=== PATIENT | male | born 1950 | race Caucasian/White ===

== ENCOUNTER 2016-06-17 09:55 | Emergency (ER) | payer BC ==
[~2016-06-17] VITALS: Ht 175.3 cm; Wt 119.9 kg
[~2016-06-17 09:55] MED LIST: ASPI325T39 PO; ATOR10TA88 PO; BNC4025 PO; CHRO1CAP PO; GLIP10TA3 PO; INDO-24 PO; NAPR1TAB9 PO; OMEG10007 PO; [UNRECOGNIZED DRUG - OTHER]
[2016-06-17 10:05] VITALS: TEMP 36.4; Ht 175.3 cm; Wt 119.9 kg
[2016-06-17] MEDS ORDERED: ONDANSETRON INJ 2 MG/ML 2 ML VIAL IV STA (10:07)
[2016-06-17] MEDS ORDERED: SODIUM CHLORIDE 0.9% 1000ML 1,000 ML IV STA (10:07)
--- NOTE | 2016-06-17 10:38 | DIAGNOSTIC IMAGING REPORT ---
SINGLE VIEW CHEST CLINICAL HISTORY: Generalized abdominal pain. FINDINGS: An AP, portable, upright chest radiograph is compared to study dated 07/18/2014. The examination is degraded by large body habitus and portable technique. The heart is top normal for projection. The mediastinal contour is within normal limits. The lungs and pleural spaces are clear. No pneumothorax is seen. The bony thorax is grossly intact. IMPRESSION: No acute cardiopulmonary abnormality. Electronically signed by: Juan Luis Lincoln M.D. 06/17/2016 10:36 AM Dictated Date/Time: 06/17/2016 10:35 AM
--- NOTE | 2016-06-17 10:57 | DIAGNOSTIC IMAGING REPORT ---
ABDOMEN AND PELVIS CT WITHOUT CONTRAST CT DOSE: 1149.95 mGycm HISTORY: Right-sided flank/abdominal pain. TECHNIQUE: Multiaxial CT images of the abdomen and pelvis were performed without contrast. COMPARISON STUDY: Renal ultrasound 07/16/2014. FINDINGS: The left lung base is clear. There are few adjacent nodules within the right lower lobe with the largest measuring 5 mm. Small fat-containing bilateral Bochdalek's hernias. No pneumoperitoneum. No pneumatosis. No suspicious lytic or blastic osseous lesions. Fatty changes within the liver. The unenhanced gallbladder, spleen, adrenal glands, and pancreas are unremarkable. No retroperitoneal lymphadenopathy. There are 2 hypodense lesions within the left kidney which likely represent cysts. The dominant lesion within the upper pole measures 5.3 cm. No right renal calculi. The bladder is not well-distended but within normal limits. Multiple pelvic phleboliths. There is a 3 mm stone within the left kidney. No left ureteral calculi or hydronephrosis. Suboptimal evaluation for bowel pathology due to the lack of intravenous and oral contrast. However, there is no definite bowel wall thickening or obstruction. Prior appendectomy. Colonic diverticulosis. IMPRESSION: 1. Left-sided nephrolithiasis. No right renal calculi. No hydronephrosis. 2. Colonic diverticulosis. 3. No definite bowel wall thickening or obstruction. 4. Prior appendectomy. 5. A few subcentimeter nodules within the right lower lobe with the largest measuring 5 mm. Please refer to the chart below for recommended follow-up. Please refer to below summary of Fleischner criteria recommendations for follow-up of incidental CT nodules (Samara De Leon, Guidelines for management of small pulmonary nodules detected on CT scans: A statement from the Fleischner Society, Radiology 237: [phone].) Low Risk Patient: Minimal or no smoking or other known risk factors for malignancy <=4 mm: No follow-up needed. >4-6 mm: Initial follow-up CT at 12 months; if unchanged, no further follow-up. >6-8 mm: Initial follow-up CT at 6-12 months then at 18-24 months if no change. >8 mm: Follow-up CT at \R\3, 9, 24 months, or PET and/or biopsy. High Risk Patient: History of smoking or other known risk factors <=4 mm: Follow-up at 12 months; if unchanged, no further follow-up. >4-6 mm: Initial follow-up CT at 6-12 months then at 18-24 months if no change. >6-8 mm: Initial follow-up CT at 3-6 months then at 9-12 and 24 months if no change. >8 mm: Same as low risk patient. Note: Nodule size measured as average of length and width. Ground glass or partly solid nodules may require longer follow-up to exclude indolent adenocarcinoma. Electronically signed by: Marek Evans M.D. 06/17/2016 10:55 AM Dictated Date/Time: 06/17/2016 10:48 AM
[2016-06-17 11:00] LABS: BASO % 0.3 %; BASO ABS # 0.03 K/uL (0-0.2); COMPLETE YES; EOS % 1.2 %; IG% 0.3 %; LYMPH % 29.7 %; LYMPH ABS # 2.58 K/uL (1.2-3.4); MEAN CELL VOLUME 93.9 fL (80-100); MEAN CORPUSCULAR HEMOGLOBIN 31.9 pg (25-34); MEAN PLATELET VOLUME 10.8 fL (7.4-10.4); MONO % 7.8 %; NEUT % 60.7 %; PLATELET COUNT 193 K/uL (130-400); RED BLOOD COUNT 4.79 M/uL (4.7-6.1); WHITE BLOOD COUNT 8.68 K/uL (4.8-10.8)
[2016-06-17 11:03] LABS: URINE APPEARANCE CLEAR (CLEAR); URINE BILIRUBIN NEG (NEG); URINE COLOR YELLOW; URINE EPITHELIAL CELL AUTO 0-5 /lpf (0-5); URINE NITRITE NEG (NEG); URINE PH 5.5 (4.5-7.5); URINE SPECIFIC GRAVITY 1.013 (1.000-1.030); UROBILINOGEN NEG (NEG); ZZUR CULT IF INDIC CLEAN CATCH NO
[2016-06-17] MEDS ORDERED: CINN500T PO (11:05)
[2016-06-17] MEDS ORDERED: BNC/4025 PO (11:05)
[2016-06-17 11:12] LABS: PROTHROMBIN TIME (PATIENT) 10.2 SECONDS (9.0-12.0)
[2016-06-17 11:20] LABS: MANUAL MICROSCOPIC REQUIRED? NO; REVIEW REQ? NO
[2016-06-17 11:21] LABS: BUN/CREATININE RATIO 17.5 (10-20); CALCIUM 9.2 mg/dl (8.5-10.1); CREATININE 1.1 mg/dl (0.60-1.40); POTASSIUM 4.1 mmol/L (3.5-5.1)
--- NOTE | 2016-06-17 11:44 | DIAGNOSTIC IMAGING REPORT ---
ABDOMINAL ULTRASOUND, RIGHT UPPER QUADRANT HISTORY: Right-sided abdominal pain.. COMPARISON: Abdomen and pelvis CT 06/17/2016. FINDINGS: Pancreas: The pancreatic tail is obscured by overlying bowel gas. The remaining portions of the pancreas are within normal limits. Liver: The liver is echogenic consistent with fatty change. Small hypoechoic area within the right hepatic lobe adjacent to the gallbladder fossa favors focal fatty sparing. Gallbladder: No gallbladder wall thickening. No gallstones. CBD: 6 mm. Right kidney: No hydronephrosis. IMPRESSION: 1. No bladder wall thickening. No gallstones. 2. Hepatic steatosis. Electronically signed by: Marek Evans M.D. 06/17/2016 11:42 AM Dictated Date/Time: 06/17/2016 11:40 AM
--- NOTE | 2016-06-17 12:30 | EMERGENCY ROOM VISIT NOTE ---
History Report prepared by Steph: Antonieta Salmeron Under the Supervision of: Dr. Ignacio Moody D.O. First contact with patient: 10:04 Chief Complaint: FLANK PAIN Stated Complaint: R SIDE PAIN-KIDNEY History of Present Illness The patient is a 65 year old male who presents to the Emergency Room with complaints of intermittent right flank pain that began several weeks ago. He currently rates his discomfort as a 5/10 in severity. The patient describes his pain as a dull, pressure. He additionally notes right sided abdominal pain , nausea, and upper back pain. The patient notes a history of previous kidney stones and states that his pain today feels similar. He additionally notes a history of colon cancer and notes that he had a partial colectomy. Source of History: patient Onset: several weeks ago Position: other (right flank) Symptom Intensity: 5/10 Quality: pressure, dull Timing: intermittent Associated Symptoms: + abdominal pain, + back pain, + nausea Review of Systems See HPI for pertinent positives & negatives. A total of 10 systems reviewed and were otherwise negative. Past Medical & Surgical Medical Problems: (1) Colon cancer (2) Diabetes (3) Hypertension (4) Kidney stone Surgical Problems: (1) S/P partial colectomy Family History Cancer Diabetes mellitus Hypertension Social History Smoking Status: Never Smoker Smokeless Tobacco Use: No Alcohol Use: none Marital Status: Housing Status: lives with significant other Current/Historical Medications Scheduled Atorvastatin (Lipitor), 10 MG PO DAILY Cinnamon (Cinnamon), 1,000 MG PO DAILY Fish Oil ([place]-3), 1 CAP PO BID Glipizide (Glucotrol), 10 MG PO BID Olmesartan/Hctz (Benicar Hct 40/25), 1 TAB PO DAILY Allergies Coded Allergies: No Known Allergies (Verified , 07/18/14) Physical Exam Vital Signs Date Time Temp Pulse Resp B/P Pulse Ox O2 Delivery O2 Flow Rate FiO2 06/17/16 11:46 62 16 137/73 98 Room Air 06/17/16 10:05 36.4 64 20 174/78 98 Room Air Physical Exam CONSTITUTIONAL/VITAL SIGNS: Reviewed / noted above. GENERAL: Non-toxic in appearance. INTEGUMENTARY: Warm, dry, and [place]. HEAD: Normocephalic. EYES: without scleral icterus or trauma. ENT/OROPHARYNX: clear and moist. LYMPHADENOPATHY/NECK: Is supple without lymphadenopathy or meningismus. RESPIRATORY: Lungs clear and equal. CARDIOVASCULAR: Regular rate and rhythm. GI/ABDOMEN: Tenderness to right upper quadrant and right epigastric area. Soft. No organomegaly or pulsatile mass. No rebound or guarding. Normal bowel sounds. EXTREMITIES: Warm and well perfused. BACK: No CVA tenderness. NEUROLOGICAL: Intact without focal deficits. PSYCHIATRIC: normal affect. MUSCULOSKELETAL: Normally developed with good muscle tone. Medical Decision & Procedures ER Provider Diagnostic Interpretation: X ray results and stated below per my interpretation and radiologist interpretation. Other radiology results and stated below per my review and radiologist interpretation: ABDOMINAL ULTRASOUND, RIGHT UPPER QUADRANT HISTORY: Right-sided abdominal pain.. COMPARISON: Abdomen and pelvis CT 06/17/2016. FINDINGS: Pancreas: The pancreatic tail is obscured by overlying bowel gas. The remaining portions of the pancreas are within normal limits. Liver: The liver is echogenic consistent with fatty change. Small hypoechoic area within the right hepatic lobe adjacent to the gallbladder fossa favors focal fatty sparing. Gallbladder: No gallbladder wall thickening. No gallstones. CBD: 6 mm. Right kidney: No hydronephrosis. IMPRESSION: 1. No bladder wall thickening. No gallstones. 2. Hepatic steatosis. Electronically signed by: Marek Evans M.D. 06/17/2016 11:42 AM Dictated Date/Time: 06/17/2016 11:40 AM SINGLE VIEW CHEST CLINICAL HISTORY: Generalized abdominal pain. FINDINGS: An AP, portable, upright chest radiograph is compared to study dated 07/18/2014. The examination is degraded by large body habitus and portable technique. The heart is top normal for projection. The mediastinal contour is within normal limits. The lungs and pleural spaces are clear. No pneumothorax is seen. The bony thorax is grossly intact. IMPRESSION: No acute cardiopulmonary abnormality. Electronically signed by: Juan Luis Lincoln M.D. 06/17/2016 10:36 AM Dictated Date/Time: 06/17/2016 10:35 AM ABDOMEN AND PELVIS CT WITHOUT CONTRAST CT DOSE: 1149.95 mGycm HISTORY: Right-sided flank/abdominal pain. TECHNIQUE: Multiaxial CT images of the abdomen and pelvis were performed without contrast. COMPARISON STUDY: Renal ultrasound 07/16/2014. FINDINGS: The left lung base is clear. There are few adjacent nodules within the right lower lobe with the largest measuring 5 mm. Small fat-containing bilateral Bochdalek's hernias. No pneumoperitoneum. No pneumatosis. No suspicious lytic or blastic osseous lesions. Fatty changes within the liver. The unenhanced gallbladder, spleen, adrenal glands, and pancreas are unremarkable. No retroperitoneal lymphadenopathy. There are 2 hypodense lesions within the left kidney which likely represent cysts. The dominant lesion within the upper pole measures 5.3 cm. No right renal calculi. The bladder is not well-distended but within normal limits. Multiple pelvic phleboliths. There is a 3 mm stone within the left kidney. No left ureteral calculi or hydronephrosis. Suboptimal evaluation for bowel pathology due to the lack of intravenous and oral contrast. However, there is no definite bowel wall thickening or obstruction. Prior appendectomy. Colonic diverticulosis. IMPRESSION: 1. Left-sided nephrolithiasis. No right renal calculi. No hydronephrosis. 2. Colonic diverticulosis. 3. No definite bowel wall thickening or obstruction. 4. Prior appendectomy. 5. A few subcentimeter nodules within the right lower lobe with the largest measuring 5 mm. Please refer to the chart below for recommended follow-up. Please refer to below summary of Fleischner criteria recommendations for follow-up of incidental CT nodules (Samara De Leon, Guidelines for management of small pulmonary nodules detected on CT scans: A statement from the Fleischner Society, Radiology 237: [phone].) Low Risk Patient: Minimal or no smoking or other known risk factors for malignancy <=4 mm: No follow-up needed. >4-6 mm: Initial follow-up CT at 12 months; if unchanged, no further follow-up. >6-8 mm: Initial follow-up CT at 6-12 months then at 18-24 months if no change. >8 mm: Follow-up CT at \R\3, 9, 24 months, or PET and/or biopsy. High Risk Patient: History of smoking or other known risk factors <=4 mm: Follow-up at 12 months; if unchanged, no further follow-up. >4-6 mm: Initial follow-up CT at 6-12 months then at 18-24 months if no change. >6-8 mm: Initial follow-up CT at 3-6 months then at 9-12 and 24 months if no change. >8 mm: Same as low risk patient. Note: Nodule size measured as average of length and width. Ground glass or partly solid nodules may require longer follow-up to exclude indolent adenocarcinoma. Electronically signed by: Marek Evans M.D. 06/17/2016 10:55 AM Dictated Date/Time: 06/17/2016 10:48 AM Laboratory Results 06/17/16 10:34 Red Blood Count 4.79, Mean Corpuscular Volume 93.9, Mean Corpuscular Hemoglobin 31.9, Mean Corpuscular Hemoglobin Concent 34.0, Mean Platelet Volume 10.8, Neutrophils (%) (Auto) 60.7, Lymphocytes (%) (Auto) 29.7, Monocytes (%) (Auto) 7.8, Eosinophils (%) (Auto) 1.2, Basophils (%) (Auto) 0.3, Neutrophils # (Auto) 5.26, Lymphocytes # (Auto) 2.58, Monocytes # (Auto) 0.68, Eosinophils # (Auto) 0.10, Basophils # (Auto) 0.03 06/17/16 10:34 Test 06/17/16 10:15 06/17/16 10:20 06/17/16 10:34 Prothrombin Time 10.2 SECONDS (9.0-12.0) Prothromb Time International Ratio 1.0 (0.9-1.1) Activated Partial Thromboplast Time 27.0 SECONDS (21.0-31.0) Partial Thromboplastin Ratio 1.0 Urine Color YELLOW Urine Appearance CLEAR (CLEAR) Urine pH 5.5 (4.5-7.5) Urine Specific [place] 1.013 (1.000-1.030) Urine Protein NEG (NEG) Urine Glucose (UA) NEG (NEG) Urine Ketones NEG (NEG) Urine Occult Blood NEG (NEG) Urine Nitrite NEG (NEG) Urine Bilirubin NEG (NEG) Urine Urobilinogen NEG (NEG) Urine Leukocyte Esterase NEG (NEG) Urine WBC (Auto) 1-5 /hpf (0-5) Urine RBC (Auto) 0-4 /hpf (0-4) Urine Hyaline Casts (Auto) 0 /lpf (0-5) Urine Epithelial Cells (Auto) 0-5 /lpf (0-5) Urine Bacteria (Auto) NEG (NEG) White Blood Count 8.68 K/uL (4.8-10.8) Red Blood Count 4.79 M/uL (4.7-6.1) Hemoglobin 15.3 g/dL (14.0-18.0) Hematocrit 45.0 % (42-52) Mean Corpuscular Volume 93.9 fL (80-100) Mean Corpuscular Hemoglobin 31.9 pg (25-34) Mean Corpuscular Hemoglobin Concent 34.0 g/dl (32-36) Platelet Count 193 K/uL (130-400) Mean Platelet Volume 10.8 fL (7.4-10.4) Neutrophils (%) (Auto) 60.7 % Lymphocytes (%) (Auto) 29.7 % Monocytes (%) (Auto) 7.8 % Eosinophils (%) (Auto) 1.2 % Basophils (%) (Auto) 0.3 % Neutrophils # (Auto) 5.26 K/uL (1.4-6.5) Lymphocytes # (Auto) 2.58 K/uL (1.2-3.4) Monocytes # (Auto) 0.68 K/uL (0.11-0.59) Eosinophils # (Auto) 0.10 K/uL (0-0.5) Basophils # (Auto) 0.03 K/uL (0-0.2) RDW Standard Deviation 43.0 fL (36.4-46.3) RDW Coefficient of Variation 12.5 % (11.5-14.5) Immature Granulocyte % (Auto) 0.3 % Immature Granulocyte # (Auto) 0.03 K/uL (0.00-0.02) Anion Gap 8.0 mmol/L (3-11) Est Creatinine Clear Calc Drug Dose 87.9 ml/min Estimated GFR () 82.4 Estimated GFR (Non- 71.1 BUN/Creatinine Ratio 17.5 (10-20) Calcium Level 9.2 mg/dl (8.5-10.1) Total Bilirubin 0.5 mg/dl (0.2-1) Direct Bilirubin 0.1 mg/dl (0-0.2) Aspartate Amino Transf (AST/SGOT) 19 U/L (15-37) Alanine Aminotransferase (ALT/SGPT) 43 U/L (12-78) Alkaline Phosphatase 75 U/L (45-117) Total Protein 7.4 gm/dl (6.4-8.2) Albumin 4.2 gm/dl (3.4-5.0) Lipase 147 U/L (73-393) Laboratory results as stated above per my review. Medications Administered Medications (Trade) Dose Ordered Sig/Bladimir Route Start Time Stop Time Status Last Admin Dose Admin Sodium Chloride (Nss 1000ml) 1,000 ml @ 999 mls/hr Q1H1M STAT IV 06/17/16 10:07 06/17/16 11:07 DC 06/17/16 10:18 999 MLS/HR Ondansetron HCl (Zofran Inj) 4 mg NOW STAT IV 06/17/16 10:07 06/17/16 10:09 DC 06/17/16 10:18 4 MG ED Course 1004: Previous medical records were reviewed. The patient was evaluated in room B12B. A complete history and physical examination was performed. 1007: Ordered Zofran Inj 4 mg IV, Sodium Chloride 1000 ml @ 999 mls/hr IV. 1213: I reevaluated the patient and he is resting comfortably. I discussed the exam findings with him and I discussed the treatment plan. He verbalized complete understanding and agreement. He is ready to go home. Medical Decision Differential considered: pancreatitis, hepatitis, or acute cholecystitis, AAA, UTI, pyelonephritis, kidney stones, appendicitis, diverticulitis, shingles, bowel obstruction mesenteric ischemia, intussusception,hernia, testicular torsion. This is a 65-year-old male who presents to the ED with a chief complaint of right-sided abdominal flank pain. The patient states that his symptoms have been off and on for the past couple of weeks. Today he has some increased pain and bloating in the abdomen and came in for evaluation. The patient states he has some mild associated nausea. He does report a history of kidney stones and has had hemicolectomy related to colon cancer by his surgeon in [place]. His vital signs are stable. His physical exam revealed minimal discomfort over the right upper abdomen and epigastric area. His CBC is normal. Complete metabolic panel is normal. Lipase is normal. Urine did not show infection. A CT scan of the abdomen and pelvis as well as a gallbladder ultrasound chest x- ray did not show a cause for his symptoms. The patient was told the results of the test. He was treated with IV fluids and IV Zofran. He is felt to be stable for discharge and outpatient follow-up. Impression Primary Impression: Abdominal pain, epigastric Scribe Attestation The scribe's documentation has been prepared under my direction and personally reviewed by me in its entirety. I confirm that the note above accurately reflects all work, treatment, procedures, and medical decision making performed by me. Departure Information Dispostion Home / Self-Care Referrals Lucho Lang D.O. (PCP) Patient Instructions My [facility] Additional Instructions Follow-up with your surgeon next week for recheck. Return here for any significant worsening or new concerns.
[2016-06-17 12:47] VITALS: BP 126/57; PULSE 59; O2SAT 97
[2016-08-18] MEDS ORDERED: MULT-506 PO (07:43)
[2016-08-18] MEDS ORDERED: BNC/20125 PO (07:43)
== END 2016-06-17 12:48 | disposition home or self-care (01) ==
LOC: C.EDB 09:56
DX: R10.13 Epigastric pain (principal); E11.9 Type 2 diabetes mellitus without complications; I10 Essential (primary) hypertension; Z85.038 Personal history of other malignant neoplasm of large intestine

== ENCOUNTER 2016-08-09 09:02 | Emergency (ER) | payer BC, OTHER ==
[~2016-08-09] VITALS: Ht 175.3 cm; Wt 116.5 kg
[~2016-08-09 09:02] MED LIST changes: -ASPI325T39 PO; +BNC/4025 PO; -BNC4025 PO; -CHRO1CAP PO; +CINN500T PO; -INDO-24 PO; -NAPR1TAB9 PO; -[UNRECOGNIZED DRUG - OTHER]
[2016-08-09 09:07] VITALS: TEMP 36.8; Ht 175.3 cm; Wt 116.5 kg
[2016-08-09] MEDS ORDERED: ONDANSETRON INJ 2 MG/ML 2 ML VIAL IV STA (09:17)
[2016-08-09] MEDS ORDERED: SODIUM CHLORIDE 0.9% 1000ML 1,000 ML IV STA (09:17)
[2016-08-09 09:27] LABS: BASO % 0.3 %; BASO ABS # 0.03 K/uL (0-0.2); COMPLETE YES; HEMATOCRIT 42.6 % (42-52); IG% 0.3 %; LYMPH % 28.3 %; LYMPH ABS # 2.72 K/uL (1.2-3.4); MEAN CELL VOLUME 92.2 fL (80-100); MEAN CORPUSCULAR HEMOGLOBIN 31.6 pg (25-34); MEAN CORPUSCULAR HGB CONC 34.3 g/dl (32-36); MEAN PLATELET VOLUME 10.8 fL (7.4-10.4); MONO % 6.1 %; PLATELET COUNT 208 K/uL (130-400); RED BLOOD COUNT 4.62 M/uL (4.7-6.1); WHITE BLOOD COUNT 9.62 K/uL (4.8-10.8)
--- NOTE | 2016-08-09 09:29 | EMERGENCY ROOM VISIT NOTE ---
History Report prepared by Steph: Antonieta Salmeron Under the Supervision of: Dr. Wilmer Zafar D.O. First contact with patient: 09:10 Chief Complaint: ABDOMINAL PAIN Stated Complaint: PAIN IN GUT Nursing Triage Summary: Patient reports gal bladder problems for the past 2-3 weeks and is having increased pain today with nausea. Pain is in RLQ History of Present Illness The patient is a 65 year old male who presents to the Emergency Room with complaints of persistent right upper quadrant abdominal pain that began yesterday, but worsened this morning. He currently rates his discomfort as a 7/ 10 in severity. The patient states that over the past several months he has had gallbladder problems. He states that the pain is a dull pain. The patient notes back pain and flank pain today. He states that he has been feeling nauseous, but denies any vomiting. The patient notes chills, but denies any fever. He states that he had a CT scan done at [facility] and an ultrasound done here. The patient's notes that the patient's gallbladder was enlarged. He notes that he has been referred to a general surgeon to have his gallbladder removed. The patient denies any hematuria. He denies being on any blood thinners. The patient denies any tobacco or alcohol use. Source of History: patient Onset: yesterday Position: abdomen (RUQ) Symptom Intensity: 7/10 Quality: dull Timing: worsening, other (persistent) Associated Symptoms: + back pain, + fevers, + nausea, No chills, No urinary symptoms, No vomiting Note: Associated Symptoms: flank pain Review of Systems See HPI for pertinent positives & negatives. A total of 10 systems reviewed and were otherwise negative. Past Medical & Surgical Medical Problems: (1) Colon cancer (2) Diabetes (3) Hypertension (4) Kidney stone Surgical Problems: (1) S/P partial colectomy Family History Cancer Diabetes mellitus Hypertension Social History Smoking Status: Never Smoker Alcohol Use: none Marital Status: Housing Status: lives with significant other Current/Historical Medications Scheduled Atorvastatin (Lipitor), 10 MG PO DAILY Cinnamon (Cinnamon), 1,000 MG PO DAILY Fish Oil ([place]-3), 1 CAP PO BID Glipizide (Glucotrol), 10 MG PO BID Olmesartan/Hctz (Benicar Hct 40/25), 1 TAB PO DAILY Omeprazole (Prilosec), 20 MG PO DAILY Allergies Coded Allergies: No Known Allergies (Verified , 08/09/16) Physical Exam Vital Signs Date Time Temp Pulse Resp B/P Pulse Ox O2 Delivery O2 Flow Rate FiO2 08/09/16 10:51 78 20 128/68 95 Room Air 08/09/16 09:34 62 08/09/16 09:28 64 18 135/80 95 Room Air 08/09/16 09:07 36.8 63 20 172/82 95 Room Air Physical Exam GENERAL: Patient is awake, alert, somewhat anxious appearing and uncomfortable. EYES: The conjunctivae are clear. The pupils are round and reactive. EARS, NOSE, MOUTH AND THROAT: The nose is without any evidence of any deformity. Mucous membranes are moist tongue is midline NECK: The neck is nontender and supple. RESPIRATORY: Normal respiratory effort is noted there is no evidence of wheezing rhonchi or rales CARDIOVASCULAR: Regular rate and rhythm noted there no murmurs rubs or gallops normal S1 normal S2 GASTROINTESTINAL: The abdomen is mildly distended, but sot. Right upper quadrant tenderness to palpation. No guarding or rigidity. MUSCULOSKELETAL/EXTREMITIES: There is no evidence of gross deformity full range of motion is noted in the hips and shoulders SKIN: There is no obvious evidence of any rash. There are no petechiae, pallor or cyanosis noted. NEUROLOGIC: Patient is awake alert and oriented x3. Medical Decision & Procedures ER Provider Diagnostic Interpretation: Radiology results as stated below per my review and radiologist interpretation: KUB HISTORY: Generalized abdominal pain. COMPARISON: Abdomen and pelvis CT 06/17/2016. FINDINGS: The bowel gas pattern is unremarkable. There are no dilated loops of small bowel to suggest an obstruction. There is a punctate stone within the left kidney. No right renal or ureteral calculi. Calcifications in the deep pelvis likely represent phleboliths. Anastomotic suture material within the right upper quadrant. No pneumoperitoneum or pneumatosis. IMPRESSION: Left-sided nephrolithiasis. Unremarkable bowel gas pattern. No evidence for bowel obstruction. Electronically signed by: Marek Evans M.D. 08/09/2016 9:41 AM Dictated Date/Time: 08/09/2016 9:39 AM ABDOMINAL ULTRASOUND, RIGHT UPPER QUADRANT HISTORY: Generalized abdominal pain.. COMPARISON: Abdominal ultrasound 06/17/2016. Abdomen and pelvis CT 06/17/2016. FINDINGS: Pancreas: Obscured by overlying bowel gas. Liver: The liver is echogenic consistent with fatty change. Stable hypoechoic area anteriorly measuring 2.1 cm. This may represent focal fatty sparing. There is also a small small focal area of fatty sparing adjacent to the gallbladder fossa. Gallbladder: No gallbladder wall thickening. No gallstones. CBD: 5 mm. Right kidney: No hydronephrosis. IMPRESSION: 1. No change from the prior study. 2. Normal gallbladder. No gallstones. 3. Hepatic steatosis. Hypoechoic areas within the liver favor fatty sparing. This remains unchanged. 4. The pancreas was obscured by overlying bowel gas. Electronically signed by: Marek Evans M.D. 08/09/2016 10:09 AM Dictated Date/Time: 08/09/2016 10:05 AM CHEST ONE VIEW PORTABLE CLINICAL HISTORY: ABDOMINAL PAIN/GI pain. Nausea. COMPARISON STUDY: 06/17/2016 FINDINGS: The bones soft tissues and hemidiaphragms are normal. The cardiomediastinal silhouette is normal. The lungs are clear. The pulmonary vasculature is normal. IMPRESSION: Negative chest. Electronically signed by: Eric Cassidy M.D. 08/09/2016 9:40 AM Dictated Date/Time: 08/09/2016 9:39 AM Hepatobiliary scan reviewed from 07/21/2016 Impression: unremarkable hepatobiliary scan without evidence of acute or chronic cholecystitis. Laboratory Results 08/09/16 09:20 Red Blood Count 4.62, Mean Corpuscular Volume 92.2, Mean Corpuscular Hemoglobin 31.6, Mean Corpuscular Hemoglobin Concent 34.3, Mean Platelet Volume 10.8, Neutrophils (%) (Auto) 64.0, Lymphocytes (%) (Auto) 28.3, Monocytes (%) (Auto) 6.1, Eosinophils (%) (Auto) 1.0, Basophils (%) (Auto) 0.3, Neutrophils # (Auto) 6.15, Lymphocytes # (Auto) 2.72, Monocytes # (Auto) 0.59, Eosinophils # (Auto) 0.10, Basophils # (Auto) 0.03 08/09/16 09:20 Test 08/09/16 09:20 08/09/16 10:05 White Blood Count 9.62 K/uL (4.8-10.8) Red Blood Count 4.62 M/uL (4.7-6.1) Hemoglobin 14.6 g/dL (14.0-18.0) Hematocrit 42.6 % (42-52) Mean Corpuscular Volume 92.2 fL (80-100) Mean Corpuscular Hemoglobin 31.6 pg (25-34) Mean Corpuscular Hemoglobin Concent 34.3 g/dl (32-36) Platelet Count 208 K/uL (130-400) Mean Platelet Volume 10.8 fL (7.4-10.4) Neutrophils (%) (Auto) 64.0 % Lymphocytes (%) (Auto) 28.3 % Monocytes (%) (Auto) 6.1 % Eosinophils (%) (Auto) 1.0 % Basophils (%) (Auto) 0.3 % Neutrophils # (Auto) 6.15 K/uL (1.4-6.5) Lymphocytes # (Auto) 2.72 K/uL (1.2-3.4) Monocytes # (Auto) 0.59 K/uL (0.11-0.59) Eosinophils # (Auto) 0.10 K/uL (0-0.5) Basophils # (Auto) 0.03 K/uL (0-0.2) RDW Standard Deviation 42.8 fL (36.4-46.3) RDW Coefficient of Variation 12.8 % (11.5-14.5) Immature Granulocyte % (Auto) 0.3 % Immature Granulocyte # (Auto) 0.03 K/uL (0.00-0.02) Prothrombin Time 10.7 SECONDS (9.0-12.0) Prothromb Time International Ratio 1.0 (0.9-1.1) Activated Partial Thromboplast Time 28.3 SECONDS (21.0-31.0) Partial Thromboplastin Ratio 1.1 Anion Gap 10.0 mmol/L (3-11) Est Creatinine Clear Calc Drug Dose 86.6 ml/min Estimated GFR () 82.4 Estimated GFR (Non- 71.1 BUN/Creatinine Ratio 15.8 (10-20) Calcium Level 9.6 mg/dl (8.5-10.1) Total Bilirubin 0.6 mg/dl (0.2-1) Direct Bilirubin 0.1 mg/dl (0-0.2) Aspartate Amino Transf (AST/SGOT) 16 U/L (15-37) Alanine Aminotransferase (ALT/SGPT) 37 U/L (12-78) Alkaline Phosphatase 72 U/L (45-117) Total Creatine Kinase 89 U/L (39-308) Creatine Kinase MB 1.3 ng/ml (0.5-3.6) Creatine Kinase MB Ratio 1.5 (0-3.0) Troponin I < 0.015 ng/ml (0-0.045) Total Protein 7.7 gm/dl (6.4-8.2) Albumin 4.1 gm/dl (3.4-5.0) Lipase 197 U/L (73-393) Urine Color YELLOW Urine Appearance CLEAR (CLEAR) Urine pH 5.5 (4.5-7.5) Urine Specific [place] 1.000 (1.000-1.030) Urine Protein NEG (NEG) Urine Glucose (UA) NEG (NEG) Urine Ketones NEG (NEG) Urine Occult Blood NEG (NEG) Urine Nitrite NEG (NEG) Urine Bilirubin NEG (NEG) Urine Urobilinogen NEG (NEG) Urine Leukocyte Esterase NEG (NEG) Laboratory results per my review. Medications Administered Medications (Trade) Dose Ordered Sig/Bladimir Route Start Time Stop Time Status Last Admin Dose Admin Sodium Chloride (Nss 1000ml) 1,000 ml @ 999 mls/hr Q1H1M STAT IV 08/09/16 09:17 08/09/16 10:17 DC 08/09/16 09:24 999 MLS/HR Ondansetron HCl (Zofran Inj) 4 mg NOW STAT IV 08/09/16 09:17 08/09/16 09:19 DC 08/09/16 09:24 4 MG Morphine Sulfate (MoRPHine SULFATE INJ) 4 mg Q15M PRN IV 08/09/16 09:30 08/23/16 09:29 08/09/16 09:24 4 MG Pantoprazole Sodium (Protonix Tab) 40 mg NOW STAT PO 08/09/16 10:40 08/09/16 10:42 DC 08/09/16 10:50 40 MG Ranitidine HCl (zANTac TAB) 150 mg NOW ONCE PO 08/09/16 10:45 08/09/16 10:46 DC 08/09/16 10:50 150 MG ECG Indication: abdominal pain Rate (beats per minute): 61 Rhythm: sinus rhythm Findings: 1st degree AV block, no ectopy, other (no acute ST segment abnormalities) Comparison ECG Date: 07/18/2015 Change: no significant change ED Course 0914: The patient was evaluated in room A11B. A complete history and physical examination were performed. 0917: Ordered Zofran Inj 4 mg IV, Sodium Chloride 1000 ml @ 999 mls/hr IV. 929: Ordered Morphine Sulfate 4 mg IV. 1040: I reevaluated the patient and he is resting comfortably. I discussed the exam findings with him and I discussed the treatment plan. He verbalized complete understanding and agreement. He is ready to go home. Ordered Protonix Tab 40 mg PO. 1045: Ordered Zantac Tab 150 mg PO. Medical Decision Differential diagnosis: Etiologies such as appendicitis, diverticulitis, PUD, biliary pathology, UTI, pancreatitis, obstruction, mesenteric ischemia, aortic pathology, infections, inflammatory bowel disease, renal colic, as well as others were entertained. Nursing notes reviewed. Patient's previous electronic medical records reviewed. The patient is a 65-year-old male who presented to the emergency department for evaluation of right upper quadrant abdominal pain. The patient states that he feels that he has gallbladder problems. He has been seeing his primary surgical group as well as his primary care physician. He had a workup previously for similar complaints. At that time he was felt to have abnormalities with his gallbladder. The patient recently had a HIDA scan at [facility]. I did review the report and no abnormalities were noted. The patient is treated with IV fluids IV pain medicine and IV antiemetics. He was also given proton pump inhibitors and H2 blockers. On subsequent reevaluation he was feeling much better. I discussed the patient's laboratory and radiographic studies with him. He was encouraged to avoid any fatty spicy or fried foods. He was encouraged to keep his appointment with his primary surgeon this week as scheduled. He was also encouraged to drink plenty clear liquids. He was also encouraged return to the emergency department immediately if symptoms change worsen or the need arises. Impression Primary Impression: Right upper quadrant abdominal pain Scribe Attestation The scribe's documentation has been prepared under my direction and personally reviewed by me in its entirety. I confirm that the note above accurately reflects all work, treatment, procedures, and medical decision making performed by me. Departure Information Dispostion Home / Self-Care Prescriptions Omeprazole (Prilosec) 20 Mg Capcr 20 MG PO DAILY, #30 CAP Prov: Wilmer Zafar, DO 08/09/16 Referrals Juan Horton Jr, M.D. (PCP) Lucho Lang D.O. Forms HOME CARE DOCUMENTATION FORM, IMPORTANT VISIT INFORMATION Patient Instructions ED Abd Pain Unkn Cause Male, My [facility] Additional Instructions Follow-up with your surgeon tomorrow as scheduled. Avoid any fatty spicy or fried foods. Continue using Maalox or Mylanta as directed for symptomatically relief. Continue all other medications as prescribed.
[2016-08-09] MEDS ORDERED: MoRPHine SULFATE 4 MG/ML 1 ML CARP\\VIAL IV PRN (09:30)
--- NOTE | 2016-08-09 09:41 | DIAGNOSTIC IMAGING REPORT ---
CHEST ONE VIEW PORTABLE CLINICAL HISTORY: ABDOMINAL PAIN/GI pain. Nausea. COMPARISON STUDY: 06/17/2016 FINDINGS: The bones soft tissues and hemidiaphragms are normal. The cardiomediastinal silhouette is normal. The lungs are clear. The pulmonary vasculature is normal. IMPRESSION: Negative chest. Electronically signed by: Eric Cassidy M.D. 08/09/2016 9:40 AM Dictated Date/Time: 08/09/2016 9:39 AM
[2016-08-09 09:42] LABS: PARTIAL THROMBOPLASTIN RATIO 1.1; PROTHROMBIN TIME (PATIENT) 10.7 SECONDS (9.0-12.0)
--- NOTE | 2016-08-09 09:42 | DIAGNOSTIC IMAGING REPORT ---
KUB HISTORY: Generalized abdominal pain. COMPARISON: Abdomen and pelvis CT 06/17/2016. FINDINGS: The bowel gas pattern is unremarkable. There are no dilated loops of small bowel to suggest an obstruction. There is a punctate stone within the left kidney. No right renal or ureteral calculi. Calcifications in the deep pelvis likely represent phleboliths. Anastomotic suture material within the right upper quadrant. No pneumoperitoneum or pneumatosis. IMPRESSION: Left-sided nephrolithiasis. Unremarkable bowel gas pattern. No evidence for bowel obstruction. Electronically signed by: Marek Evans M.D. 08/09/2016 9:41 AM Dictated Date/Time: 08/09/2016 9:39 AM
[2016-08-09 09:46] LABS: ALT/SGPT 37 U/L (12-78); BLOOD UREA NITROGEN 17 mg/dl (7-18); BUN/CREATININE RATIO 15.8 (10-20); CALCIUM 9.6 mg/dl (8.5-10.1); CARBON DIOXIDE 28 mmol/L (21-32); CHLORIDE 101 mmol/L (98-107); GLUCOSE 123 mg/dl (70-99); POTASSIUM 3.8 mmol/L (3.5-5.1); SODIUM 139 mmol/L (136-145)
[2016-08-09 09:51] LABS: ALKALINE PHOSPHATASE 72 U/L (45-117); AST/SGOT 16 U/L (15-37); CKMB/CK RATIO 1.5 (0-3.0)
--- NOTE | 2016-08-09 10:10 | DIAGNOSTIC IMAGING REPORT ---
ABDOMINAL ULTRASOUND, RIGHT UPPER QUADRANT HISTORY: Generalized abdominal pain.. COMPARISON: Abdominal ultrasound 06/17/2016. Abdomen and pelvis CT 06/17/2016. FINDINGS: Pancreas: Obscured by overlying bowel gas. Liver: The liver is echogenic consistent with fatty change. Stable hypoechoic area anteriorly measuring 2.1 cm. This may represent focal fatty sparing. There is also a small small focal area of fatty sparing adjacent to the gallbladder fossa. Gallbladder: No gallbladder wall thickening. No gallstones. CBD: 5 mm. Right kidney: No hydronephrosis. IMPRESSION: 1. No change from the prior study. 2. Normal gallbladder. No gallstones. 3. Hepatic steatosis. Hypoechoic areas within the liver favor fatty sparing. This remains unchanged. 4. The pancreas was obscured by overlying bowel gas. Electronically signed by: Marek Evans M.D. 08/09/2016 10:09 AM Dictated Date/Time: 08/09/2016 10:05 AM
[2016-08-09 10:18] LABS: URINE APPEARANCE CLEAR (CLEAR); URINE BILIRUBIN NEG (NEG); URINE COLOR YELLOW; URINE NITRITE NEG (NEG); URINE PH 5.5 (4.5-7.5); UROBILINOGEN NEG (NEG)
[2016-08-09 10:30] LABS: MANUAL MICROSCOPIC REQUIRED? NO; REVIEW REQ? NO
[2016-08-09] MEDS ORDERED: PANTOprazole SOD 40 MG TAB PO STA (10:40)
[2016-08-09] MEDS ORDERED: RANITIDINE HCL 150 MG TAB PO ONE (10:45)
[2016-08-09] MEDS ORDERED: OMEP20CA59 PO (10:48)
[2016-08-09 10:51] VITALS: BP 128/68; PULSE 78; O2SAT 95
[2016-08-18] MEDS ORDERED: BNC/20125 PO (07:43)
[2016-08-18] MEDS ORDERED: MULT-506 PO (07:43)
== END 2016-08-09 11:04 | disposition home or self-care (01) ==
LOC: C.EDB 09:04 → C.EDA 11:04
DX: R10.11 Right upper quadrant pain (principal); Z85.038 Personal history of other malignant neoplasm of large intestine; E11.9 Type 2 diabetes mellitus without complications; I10 Essential (primary) hypertension; Z87.442 Personal history of urinary calculi; Z90.49 Acquired absence of other specified parts of digestive tract; Z83.3 Family history of diabetes mellitus; Z82.49 Family history of ischemic heart disease and other diseases of the circulatory system; Z79.899 Other long term (current) drug therapy

== ENCOUNTER → 2016-08-19 | Day surgery (SDC) | payer BC, OTHER ==
[2016-08-18 07:44] VITALS: Ht 175.3 cm; Wt 113.6 kg
[~2016-08-19] VITALS: Ht 175.3 cm; Wt 113.6 kg
[~2016-08-19] MED LIST changes: +BNC/20125 PO; -BNC/4025 PO; +LIDOCAINE HCL 2% 2 ML VIAL (20MG/ML) ONE; +MULT-506 PO; +PROPOFOL IV EMULSION 10 MG/ML 20 ML VIAL IV ONE; +SODIUM CHLORIDE 0.9% 500ML 500 ML IV ONE
--- NOTE | 2016-08-19 09:54 | Endo History and Physical ---
History & Physical Date of Service: Aug 19, 2016. Chief Complaint: history of colon cancer,epigastric pain Referring Physician: Dr. Lucho Lang History of Present Illness Intermittent upper abdominal pain. History of colon cancer. Past Medical History Diabetes, Arthritis, Reflux, High Cholesterol, Hypertension Past Surgical History Hx Cardiac Surgery: No Hx Internal Defibrillator: No Hx Pacemaker: No Hx Abdominal Surgery: Yes (RUPTURED APPY) Hx of Implantable Prosthesis: No Hx Post-Op Nausea and Vomiting: No Hx Cancer Surgery: No Hx Thoracic Surgery: No Hx Orthopedic: Yes (LT TKA, LT/RT SHOULDER, LT KNEE SURGERY X2, TRIGGER FINGERS ) Hx Urinary Tract Surgery: Yes (TURP X3) Family History None Social History Smoking Status: Never Smoker Hx Substance Use: No Hx Alcohol Use: Yes (OCCASIONAL) Allergies Coded Allergies: No Known Drug Allergy (Verified Allergy, Unknown, ., 08/18/16) Adhesives (Verified Adverse Reaction, Unknown, RASH AND SKIN IRRITATION, ) Current Medications Reported Home Medications Medications Dose Route/Sig Max Daily Dose Days Date Category Multivitamin (Multivitamins) Tab 1 Tab PO QAM 08/18/16 Reported Benicar Hct 17/05.5 (Olmesartan/HCTZ) Tab 1 Tab PO QAM 08/18/16 Reported Cinnamon 500 Mg Tab 1,000 Mg PO BID 06/17/16 Reported Lipitor (Atorvastatin Calcium) 10 Mg Tab 10 Mg PO QAM 12/16/15 Reported Glucotrol (Glipizide) 10 Mg Tab 10 Mg PO BID 12/16/15 Reported [place]-3 (Fish Oil) 1 Ea Cap 1 Cap PO BID 07/18/14 Reported Vital Signs Weight (Kilograms): 113.64 Height (Feet): 5 Height (Inches): 9 Date Time Temp Pulse Resp B/P Pulse Ox O2 Delivery O2 Flow Rate FiO2 08/19/16 09:25 36.7 60 20 162/82 100 Room Air Physical Exam General Appearance: WD/WN, no apparent distress, + obese Respiratory/Chest: Auscultation: breath sounds normal, no wheezing Cardiovascular: Heart Auscultation: RRR, no murmurs Abdomen: Inspection & Palpation: soft, no tenderness, guarding & rebound Assessment and Plan Cleared ro EGD and colonoscopy.
--- NOTE | 2016-08-19 11:10 | GI REPORT ---
Procedure Date: 08/19/2016 10:58 AM Procedure: Upper GI endoscopy Indications: Upper abdominal pain Medicines: Monitored Anesthesia Care Complications: No immediate complications. Estimated blood loss: None. Estimated Blood Loss: Estimated blood loss: none. Procedure: Pre-Anesthesia Assessment: - Prior to the procedure, a History and Physical was performed, and patient medications, allergies and sensitivities were reviewed. The patient's tolerance of previous anesthesia was reviewed. - ASA Grade Assessment: III - A patient with severe systemic disease. After obtaining informed consent, the endoscope was passed under direct vision. Throughout the procedure, the patient's blood pressure, pulse, and oxygen saturations were monitored continuously. The scope was introduced through the mouth, and advanced to the third part of duodenum. The upper GI endoscopy was accomplished with ease. The patient tolerated the procedure well. Findings: The upper third of the esophagus, middle third of the esophagus and lower third of the esophagus were normal. The Z-line was regular and was found 39 cm from the incisors. Biopsies were taken with a cold forceps for histology. A small sliding hiatus hernia was present. The entire examined stomach was normal. Biopsies were taken with a cold forceps for Helicobacter pylori testing. The examined duodenum was normal. Verification of patient identification for the specimens was done by the physician and nurse using the patient's name, date and medical record number. Impression: - Normal upper third of esophagus, middle third of esophagus and lower third of esophagus. - Z-line regular, 39 cm from the incisors. Biopsied. - Small sliding hiatus hernia. - Normal stomach. Biopsied. - Normal examined duodenum. Recommendation: - Perform a colonoscopy today. Wilmer Sanchez M.D. Wilmer Sanchez MD 08/19/2016 11:10:06 AM This report has been signed electronically. Note Initiated On: 08/19/2016 10:58 AM I attest to the content of the Intraoperative Record and orders documented therein, exceptions below
--- NOTE | 2016-08-19 11:42 | GI REPORT ---
Procedure Date: 08/19/2016 10:58 AM Procedure: Colonoscopy Indications: High risk colon cancer surveillance: Personal history of colon cancer Medicines: Monitored Anesthesia Care Complications: No immediate complications. Estimated blood loss: None. Estimated Blood Loss: Estimated blood loss: none. Procedure: Pre-Anesthesia Assessment: - Prior to the procedure, a History and Physical was performed, and patient medications, allergies and sensitivities were reviewed. The patient's tolerance of previous anesthesia was reviewed. - ASA Grade Assessment: III - A patient with severe systemic disease. After I obtained informed consent, the scope was passed under direct vision. Throughout the procedure, the patient's blood pressure, pulse, and oxygen saturations were monitored continuously. The scope was introduced through the anus and advanced to the ileocolonic anastomosis. The colonoscopy was performed with ease. The patient tolerated the procedure well. The quality of the bowel preparation was excellent. The bowel preparation used was split dose MIralax. Findings: A 4 mm polyp was found in the sigmoid colon. The polyp was sessile. The polyp was removed with a cold snare. Resection and retrieval were complete. Many diverticula were found from sigmoid to descending colon. There was evidence of a prior functional end-to-end ileo-colonic anastomosis at the hepatic flexure. This was patent and was characterized by healthy appearing mucosa. The anastomosis was traversed. Verification of patient identification for the specimen was done by the physician and nurse using the patient's name, date and medical record number. Impression: - One 4 mm polyp in the sigmoid colon, removed with a cold snare. Resected and retrieved. - Diverticulosis from sigmoid to descending colon. - Patent functional end-to-end ileo-colonic anastomosis, characterized by healthy appearing mucosa. Recommendation: - Repeat colonoscopy in 5 years for surveillance based on pathology results. - Discharge patient to home (with escort). Wilmer Sanchez M.D. Wilmer Sanchez MD 08/19/2016 11:42:27 AM This report has been signed electronically. Note Initiated On: 08/19/2016 10:58 AM I attest to the content of the Intraoperative Record and orders documented therein, exceptions below
--- NOTE | 2016-08-19 11:50 | Discharge Instructions ---
Endoscopy Patient Instructions Date / Procedure(s) Performed Aug 19, 2016. Colonoscopy, EGD Allergy Information Coded Allergies: No Known Drug Allergy (Verified Allergy, Unknown, ., 08/18/16) Adhesives (Verified Adverse Reaction, Unknown, RASH AND SKIN IRRITATION, ) Discharge Date / Findings Aug 19, 2016. Small hiatal hernia, small colon polyp. Medication Instructions Restart Stopped Medication(s): Restart all medications today Provider Instructions Activity Restrictions - No exercising or heavy lifting for 24 hours. - Do not drink alcohol the day of the procedure. - Do not drive a car or operate machinery until the day after the procedure. - Do not make any important decisions or sign important papers in 24 hours after the procedure. Following Day: - Return to full activity which may include returning to work/school. Diet Start your diet with liquids and light foods (jello, soup, juice, toast). Then eat your usual diet if not nauseated. Treatment For Common After Affects For mild abdominal pain, bloating, or excessive gas: - Rest - Eat lightly - Lie on right side Follow-Up Information Follow-up with Dr. Lucho Lang as scheduled Anesthesia Information What You Should Know You have had a procedure that required some medicine to reduce anxiety and discomfort. This treatment is called moderate sedation. After receiving the treatment, you may be sleepy, but you will be able to breathe on your own. The effects of the treatment may last for several hours. Follow these instructions along with Activity/Diet recommendations noted above: * Do NOT do anything where dizziness or clumsiness would be dangerous. * Rest quietly at home today, then you can be up and about tomorrow. * Have a responsible person stay with you the rest of today. * You may have had an I.V. today. If so, you may take the dressing off later today. Recommendations Call your doctor if: * Trouble breathing * Continuous vomiting for more than 24 hours * Temperature above 101 degrees * Severe abdominal pain or bloating * Pain not relieved by pain medicine ordered * There is increased drainage or redness from any incision * A large amount of rectal bleeding greater than 2-3 tablespoons. (If you had a polyp/s removed or have hemorrhoids, a small amount of blood - from the rectum is to be expected.) * You have any unanswered questions or concerns. IN THE EVENT OF A SERIOUS EMERGENCY, GO TO THE NEAREST EMERGENCY ROOM Your discharge instructions were prepared by provider Wilmer Sanchez. Patient Instructions Signature Page Winston Dao Patient (or Guardian) Signature/Date: I have read and understand the instructions given to me by my caregivers. Caregiver/RN/Doctor Signature/Date: The above-named patient and/or guardian has received patient instructions on this date. + Original Patient Signature Page (only) stays with chart. Please make copy for patient.
[2016-08-19 12:10] VITALS: BP 143/72; PULSE 59; O2SAT 100
--- NOTE | 2016-08-19 12:41 | Anesthesiology Progress Note ---
Anesthesia Post Op Note Date & Time Aug 19, 2016 at 12:41 Vital Signs Pain Intensity: 0 Vital Signs Past 12 Hours Date Time Temp Pulse Resp B/P Pulse Ox O2 Delivery O2 Flow Rate FiO2 08/19/16 12:10 59 20 143/72 100 Room Air 08/19/16 11:50 60 20 142/70 100 Room Air 08/19/16 11:35 67 20 117/59 98 Room Air 08/19/16 09:25 36.7 60 20 162/82 100 Room Air Notes Mental Status: alert / awake / arousable, participated in evaluation Pt Amnestic to Procedure: Yes Nausea / Vomiting: adequately controlled Pain: adequately controlled Airway Patency, RR, SpO2: stable & adequate BP & HR: stable & adequate Hydration State: stable & adequate Anesthetic Complications: no major complications apparent
== END | disposition home or self-care (01) ==
LOC: C.GI 09:00
PROVIDERS: ATTEND Internal Medicine Gastroenterology
DX: Z12.11 Encounter for screening for malignant neoplasm of colon (principal); K44.9 Diaphragmatic hernia without obstruction or gangrene; Z85.038 Personal history of other malignant neoplasm of large intestine; D12.5 Benign neoplasm of sigmoid colon; K57.30 Diverticulosis of large intestine without perforation or abscess without bleeding; K29.70 Gastritis, unspecified, without bleeding; Z98.0 Intestinal bypass and anastomosis status; K20.9 Esophagitis, unspecified; I10 Essential (primary) hypertension; E11.9 Type 2 diabetes mellitus without complications; M19.90 Unspecified osteoarthritis, unspecified site; E78.5 Hyperlipidemia, unspecified; Z98.890 Other specified postprocedural states

== ENCOUNTER → 2017-05-26 | Outpatient (CLI) | payer BC ==
[~2017-05-26] MED LIST changes: +ATOR10TA82 PO; -ATOR10TA88 PO; -LIDOCAINE HCL 2% 2 ML VIAL (20MG/ML) ONE; +ONDA4TAB10 SL; +OXYC-57 PO; -PROPOFOL IV EMULSION 10 MG/ML 20 ML VIAL IV ONE; -SODIUM CHLORIDE 0.9% 500ML 500 ML IV ONE
[2017-05-26 13:31] LABS: BLOOD UREA NITROGEN 21 mg/dl (7-18); CREATININE 0.98 mg/dl (0.60-1.40)
== END | disposition home or self-care (01) ==
LOC: C.LABPBG 09:43
PROVIDERS: ATTEND Urology
DX: N40.1 Benign prostatic hyperplasia with lower urinary tract symptoms (principal)

== ENCOUNTER 2017-08-14 00:43 | Emergency (ER) | payer BC ==
[~2017-08-14] VITALS: Ht 175.3 cm; Wt 115.1 kg
[~2017-08-14 00:43] MED LIST changes: -ONDA4TAB10 SL; -OXYC-57 PO
[2017-08-14 00:49] VITALS: TEMP 36.6; Ht 175.3 cm; Wt 115.1 kg
[2017-08-14] MEDS ORDERED: MoRPHine SULFATE 4 MG/ML 1 ML CARP\\VIAL IV STA ×2 (01:39→02:34)
[2017-08-14] MEDS ORDERED: ONDANSETRON INJ 2 MG/ML 2 ML VIAL IV STA (01:39)
[2017-08-14] MEDS ORDERED: SODIUM CHLORIDE 0.9% 1000ML 1,000 ML IV STA (01:39)
--- NOTE | 2017-08-14 01:44 | EMERGENCY ROOM VISIT NOTE ---
History Report prepared by Steph: Mark Haro Under the Supervision of: Dr. Bekah Sumner D.O. First contact with patient: 01:29 Chief Complaint: ABDOMINAL PAIN Stated Complaint: GALLBLADDER History of Present Illness The patient is a 66 year old male who presents to the Emergency Room with complaints of worsening intermittent abdominal pain beginning a few weeks ago. The patient states that he has started having gallbladder problems since last year. He notes that his current symptoms feel like his previous symptoms. He reports that his pain is located in his right abdomen. The patient states that he also had left-sided abdominal pain today. He also complains of nausea, chills , and constipation. He denies any rash and urinary symptoms. He notes that he has discomfort when he lies down and sits up, and that his pain does not change with change of position. He reports that he has a history of diverticulitis, colon cancer, and has had a colon resection, but does not have a history of gallbladder stones. Patient states he had an outpatient ultrasound on Monday which was reported to him as no gallstones, and no other evidence of acute gallbladder inflammation. States he is scheduled for a HIDA scan on this week. Patient states he has not had any left-sided pain with prior episodes of "gallbladder attacks" in the past. States he has been watching his diet very carefully, last thing he ate today was a salad. Source of History: patient Onset: a few weeks ago Position: abdomen Timing: intermittent, worsening Associated Symptoms: + chills, + nausea, No urinary symptoms, No rash Note: The patient also complains of constipation. Review of Systems See HPI for pertinent positives & negatives. A total of 10 systems reviewed and were otherwise negative. Past Medical & Surgical Medical Problems: (1) Colon cancer (2) Diabetes (3) Diverticulitis (4) Hypertension (5) Kidney stone Surgical Problems: (1) S/P partial colectomy Family History Cancer Diabetes mellitus Gallbladder disease Hypertension Kidney disease Kidney stones Social History Smoking Status: Never Smoker Alcohol Use: none Marital Status: Housing Status: lives with significant other Current/Historical Medications Scheduled Atorvastatin (Lipitor), 10 MG PO QAM Cinnamon (Cinnamon), 1,000 MG PO BID Fish Oil ([place]-3), 1 CAP PO BID Glipizide (Glucotrol), 10 MG PO BID Multivitamin (Multivitamin), 1 TAB PO QAM Olmesartan/Hctz (Benicar Hct 20/12.5), 1 TAB PO QAM Ondasetron Odt (Zofran Odt), 4 MG SL Q8 Scheduled PRN Oxycodone/Acetaminophen 5MG/325MG (Percocet 5MG/325MG), 1 TAB PO Q6 PRN for Pain Allergies Coded Allergies: No Known Drug Allergy (Verified Allergy, Unknown, ., 08/14/17) Adhesives (Verified Adverse Reaction, Unknown, RASH AND SKIN IRRITATION, ) Physical Exam Vital Signs Date Time Temp Pulse Resp B/P (MAP) Pulse Ox O2 Delivery O2 Flow Rate FiO2 08/14/17 06:20 59 18 137/78 95 08/14/17 05:00 57 18 142/85 95 Room Air 08/14/17 04:03 57 18 122/62 96 Room Air 08/14/17 03:30 58 18 122/64 95 Room Air 08/14/17 02:13 59 20 128/69 95 Room Air 08/14/17 00:49 36.6 61 18 164/77 98 Room Air Physical Exam GENERAL: alert, uncomfortable appearing, well nourished, no distress, non-toxic EYE EXAM: normal conjunctiva, PERRL and EOM's grossly intact OROPHARYNX: no exudate, no erythema, lips, buccal mucosa, and tongue normal and mucous membranes are moist NECK: supple, no nuchal rigidity, no adenopathy, non-tender LUNGS: Clear to auscultation. Normal chest wall mechanics HEART: no murmurs, S1 normal and S2 normal ABDOMEN: abdomen soft, normo-active bowel sounds, no masses, no rebound or guarding, RUQ tenderness, mild left lateral abdominal tenderness, dull to percussion, no distention. BACK: Back is symmetrical on inspection and there is no deformity, no midline tenderness, no CVA tenderness. SKIN: no rashes and no bruising UPPER EXTREMITIES: upper extremities are grossly normal. LOWER EXTREMITIES: No pitting edema. NEURO EXAM: Normal sensorium, cranial nerves II-XII grossly intact, normal speech, no gross weakness of arms, no gross weakness of legs. Medical Decision & Procedures ER Provider Diagnostic Interpretation: Radiology results have been interpreted by the radiologist and reviewed by me. CT ABDOMEN & PELVIS With Contrast: Compared to 06/17/16. Distended gallbladder. Nephrolithiasis. Slight prominence of the right greater than left renal collecting systems without evidence of urethral stone. Small enhancing lesion in the right hepatic lobe, possible hemangioma. Mild basilar atelectatic changes. Small pulmonary nodules. Additional incidental findings similar to prior study. Radiologist: Maria E Suazo M.D. Laboratory Results 08/14/17 01:15 Red Blood Count 4.53, Mean Corpuscular Volume 93.2, Mean Corpuscular Hemoglobin 31.8, Mean Corpuscular Hemoglobin Concent 34.1, Mean Platelet Volume 10.6, Neutrophils (%) (Auto) 52.2, Lymphocytes (%) (Auto) 36.7, Monocytes (%) (Auto) 7.8, Eosinophils (%) (Auto) 2.4, Basophils (%) (Auto) 0.6, Neutrophils # (Auto) 4.69, Lymphocytes # (Auto) 3.30, Monocytes # (Auto) 0.70, Eosinophils # (Auto) 0.22, Basophils # (Auto) 0.05 08/14/17 01:15 Test 08/14/17 01:15 08/14/17 02:29 White Blood Count 8.99 K/uL (4.8-10.8) Red Blood Count 4.53 M/uL (4.7-6.1) Hemoglobin 14.4 g/dL (14.0-18.0) Hematocrit 42.2 % (42-52) Mean Corpuscular Volume 93.2 fL (80-100) Mean Corpuscular Hemoglobin 31.8 pg (25-34) Mean Corpuscular Hemoglobin Concent 34.1 g/dl (32-36) Platelet Count 214 K/uL (130-400) Mean Platelet Volume 10.6 fL (7.4-10.4) Neutrophils (%) (Auto) 52.2 % Lymphocytes (%) (Auto) 36.7 % Monocytes (%) (Auto) 7.8 % Eosinophils (%) (Auto) 2.4 % Basophils (%) (Auto) 0.6 % Neutrophils # (Auto) 4.69 K/uL (1.4-6.5) Lymphocytes # (Auto) 3.30 K/uL (1.2-3.4) Monocytes # (Auto) 0.70 K/uL (0.11-0.59) Eosinophils # (Auto) 0.22 K/uL (0-0.5) Basophils # (Auto) 0.05 K/uL (0-0.2) RDW Standard Deviation 42.7 fL (36.4-46.3) RDW Coefficient of Variation 12.6 % (11.5-14.5) Immature Granulocyte % (Auto) 0.3 % Immature Granulocyte # (Auto) 0.03 K/uL (0.00-0.02) Prothrombin Time 10.3 SECONDS (9.0-12.0) Prothromb Time International Ratio 1.0 (0.9-1.1) Anion Gap 8.0 mmol/L (3-11) Est Creatinine Clear Calc Drug Dose 80.5 ml/min Estimated GFR () 76.7 Estimated GFR (Non- 66.2 BUN/Creatinine Ratio 16.8 (10-20) Calcium Level 9.2 mg/dl (8.5-10.1) Total Bilirubin 0.7 mg/dl (0.2-1) Aspartate Amino Transf (AST/SGOT) 17 U/L (15-37) Alanine Aminotransferase (ALT/SGPT) 33 U/L (12-78) Alkaline Phosphatase 67 U/L (45-117) Troponin I < 0.015 ng/ml (0-0.045) Total Protein 7.5 gm/dl (6.4-8.2) Albumin 4.0 gm/dl (3.4-5.0) Globulin 3.5 gm/dl (2.5-4.0) Albumin/Globulin Ratio 1.1 (0.9-2) Lipase 310 U/L (73-393) Bedside Lactic Acid Venous 0.88 mmol/L (0.90-1.70) Laboratory results per my review. Medications Administered Medications (Trade) Dose Ordered Sig/Bladimir Route Start Time Stop Time Status Last Admin Dose Admin Sodium Chloride 1,000 ml @ 999 mls/hr Q1H1M STAT IV 08/14/17 01:39 08/14/17 02:39 DC 08/14/17 02:08 999 MLS/HR Ondansetron HCl (Zofran Inj) 4 mg NOW STAT IV 08/14/17 01:39 08/14/17 01:41 DC 08/14/17 02:08 4 MG Morphine Sulfate (MoRPHine SULFATE INJ) 4 mg NOW STAT IV 08/14/17 01:39 08/14/17 01:41 DC 08/14/17 02:12 4 MG Pantoprazole Sodium 40 mg/ Syringe 10 ml @ 5 mls/min NOW ONCE IV 08/14/17 02:30 08/14/17 02:31 DC 08/14/17 03:01 5 MLS/MIN Morphine Sulfate (MoRPHine SULFATE INJ) 4 mg NOW STAT IV 08/14/17 02:34 08/14/17 02:35 DC 08/14/17 03:10 4 MG Oxycodone/ Acetaminophen (Percocet 5-325mg Tab) 1 tab NOW ONCE PO 08/14/17 04:45 08/14/17 04:47 DC 08/14/17 05:08 1 TAB ECG Per My Interpretation Indication: abdominal pain Rate (beats per minute): 56 Rhythm: sinus bradycardia Findings: 1st degree AV block, T-wave inversion (lead 3), no acute ischemic change, other (Normal axis, normal QRS/QTC) ED Course 0131: The patient was evaluated in room A11. A complete history and physical exam was performed. 0139: Morphine Sulfate 4mg IV, Zofran Inj 4mg IV, Sodium Chloride 1000 ml @ 999 mls/hr IV 0229: I reevaluated and updated the patient. His labs are clean. He states that his pain is a little better but is still there. He notes that his nausea is better. 0230: Pantoprazole Sodium 40mg/Syringe 10ml @ 5 mls/min IV 0234: Morphine Sulfate 4mg IV 0444: I reevaluated and updated the patient. 0445: Oxycodone/Acetaminophen 1 tab PO 0620: Upon reevaluation, the patient is feeling better. I discussed the findings and the treatment plan with the patient. He verbalizes agreement and understanding. The patient was discharged home. Medical Decision Differential diagnosis: Etiologies such as appendicitis, diverticulitis, PUD, biliary pathology, UTI, pancreatitis, obstruction, mesenteric ischemia, aortic pathology, infections, inflammatory bowel disease, renal colic, as well as others were entertained. Patient with no leukocytosis, elevated LFTs, elevated lipase. Imaging the patient's abdomen unremarkable despite atypical bilateral pains. Patient afebrile, pain and nausea improved with medication here. Discussed with patient use of nausea and pain medications at home, continued outpatient testing including his HIDA scan later this week. Discussed symptoms to watch and return for, he verbalized understanding was agreeable with plan. No evidence of perforation, acute cholecystitis, ascending cholangitis, pancreatitis, GI bleed, diverticulitis, bowel obstruction, mesenteric ischemia. Patient's vital signs stable throughout. Patient tolerating p.o. and ambulate with a steady gait at time of discharge. Medication Reconcilliation Current Medication List: was personally reviewed by me Blood Pressure Screening Patient's blood pressure: Elevated blood pressure Blood pressure disposition: Elevated BP felt to be situational Impression Primary Impression: Abdominal pain Additional Impression: Nausea Scribe Attestation The scribe's documentation has been prepared under my direction and personally reviewed by me in its entirety. I confirm that the note above accurately reflects all work, treatment, procedures, and medical decision making performed by me. Departure Information Dispostion Home / Self-Care Prescriptions Oxycodone/Acetaminophen 5MG/325MG (PERCOCET 5MG/325MG) Tab 1 TAB PO Q6 Y for Pain, #15 TAB Prov: Bekah Sumner, DO 08/14/17 Ondasetron Odt (ZOFRAN ODT) 4 Mg Tab 4 MG SL Q8 for Nausea, #20 TAB Prov: Bekah Sumner, DO 08/14/17 Referrals Lucho Lang D.O. (PCP) Forms Call Back Authorization, HOME CARE DOCUMENTATION FORM, IMPORTANT VISIT INFORMATION Patient Instructions My [facility] Additional Instructions Please keep your appointment for the nuclear study of your gallbladder later this week. You may use the pain and nausea medication as needed. Please avoid any food or drink which could exacerbate her symptoms including foods that are fried, fatty, served with a cream sauce or gravy, cooked in butter, or is highly acidic. Please continue other regular medications as prescribed. Do not take the stronger pain medication and drive. Please stay well-hydrated and drink plenty of water. If you have any worsening symptoms or new concerns, please return the emergency room. Problem Qualifiers Primary Impression: Abdominal pain Abdominal location: right upper quadrant Qualified Codes: R10.11 - Right upper quadrant pain
[2017-08-14 02:01] LABS: BASO % 0.6 %; BASO ABS # 0.05 K/uL (0-0.2); EOS % 2.4 %; EOS ABS # 0.22 K/uL (0-0.5); HEMATOCRIT 42.2 % (42-52); HEMOGLOBIN 14.4 g/dL (14.0-18.0); IG# 0.03 K/uL (0.00-0.02); LYMPH % 36.7 %; MEAN CELL VOLUME 93.2 fL (80-100); MEAN CORPUSCULAR HEMOGLOBIN 31.8 pg (25-34); MEAN CORPUSCULAR HGB CONC 34.1 g/dl (32-36); MEAN PLATELET VOLUME 10.6 fL (7.4-10.4); MONO % 7.8 %; NEUT % 52.2 %; NEUT ABS # 4.69 K/uL (1.4-6.5); PLATELET COUNT 214 K/uL (130-400); RED CELL DISTRIBUTION WIDTH CV 12.6 % (11.5-14.5); RED CELL DISTRIBUTION WIDTH SD 42.7 fL (36.4-46.3); WHITE BLOOD COUNT 8.99 K/uL (4.8-10.8)
[2017-08-14 02:09] LABS: ALT/SGPT 33 U/L (12-78); AST/SGOT 17 U/L (15-37); BLOOD UREA NITROGEN 19 mg/dl (7-18); CALCIUM 9.2 mg/dl (8.5-10.1); CARBON DIOXIDE 29 mmol/L (21-32); CREATININE 1.16 mg/dl (0.60-1.40); GLUCOSE 109 mg/dl (70-99); LIPASE 310 U/L (73-393); POTASSIUM 3.7 mmol/L (3.5-5.1); SODIUM 136 mmol/L (136-145)
[2017-08-14 02:14] LABS: ALKALINE PHOSPHATASE 67 U/L (45-117); TOTAL PROTEIN 7.5 gm/dl (6.4-8.2)
[2017-08-14] MEDS ORDERED: PANTOprazole INJ 40 MG in SYRINGE 0 ML IV ONE (02:30)
[2017-08-14] MEDS ORDERED: OPTIRAY 320 IV PRN (02:45)
[2017-08-14] MEDS ORDERED: OXYCODONE/ACETAMINOPHEN 5-325 TAB PO ONE (04:45)
[2017-08-14] MEDS ORDERED: OXYC-57 PO (05:42)
[2017-08-14] MEDS ORDERED: ONDA4TAB10 SL (05:42)
[2017-08-14 06:20] VITALS: BP 137/78; PULSE 59; O2SAT 95
--- NOTE | 2017-08-14 07:10 | DIAGNOSTIC IMAGING REPORT ---
ABD/PELVIS IV CONTRAST ONLY CT DOSE: 1155.24 mGy.cm HISTORY: Pain upper abd pain, ruq, left lateral abd, hx colon resection TECHNIQUE: Multiaxial CT images of the abdomen and pelvis were performed following the use of intravenous contrast. A dose lowering technique was utilized adhering to the principles of ALARA. COMPARISON STUDY: 06/17/2016 FINDINGS: Lung bases are clear. Micronodular area. She described is stable. Mild capsular scarring of the liver also stable from the prior study read several renal calcifications as well as a left renal cyst unchanged. Mild fatty replacement of the pancreas. Bowel pattern shows a postoperative changes in the region of the a sending colon. This is unchanged. Bowel pattern overall is nonobstructive. Bladder is midline. There is no free fluid within the pelvic cul-de-sac. Pelvic and inguinal regions show no significant adenopathy. IMPRESSION: No acute process of the abdomen or pelvis. Chronic and postoperative changes as noted. The above report was generated using voice recognition software. It may contain grammatical, syntax or spelling errors. Electronically signed by: Eric Cassidy M.D. 08/14/2017 7:08 AM Dictated Date/Time: 08/14/2017 7:04 AM
== END 2017-08-14 06:20 | disposition home or self-care (01) ==
LOC: C.EDB 00:45 → C.EDA 06:20
DX: R10.11 Right upper quadrant pain (principal); R11.0 Nausea; R79.89 Other specified abnormal findings of blood chemistry; E11.9 Type 2 diabetes mellitus without complications; Z79.84 Long term (current) use of oral hypoglycemic drugs; I10 Essential (primary) hypertension; Z87.442 Personal history of urinary calculi; Z85.038 Personal history of other malignant neoplasm of large intestine; Z87.19 Personal history of other diseases of the digestive system; Z83.3 Family history of diabetes mellitus; Z83.79 Family history of other diseases of the digestive system; Z82.49 Family history of ischemic heart disease and other diseases of the circulatory system; Z84.1 Family history of disorders of kidney and ureter; Z91.048 Other nonmedicinal substance allergy status

== ENCOUNTER 2017-08-19 11:19 | Emergency (ER) | payer BC ==
[~2017-08-19] VITALS: Ht 175.3 cm; Wt 113.0 kg
[~2017-08-19 11:19] MED LIST changes: +ONDA4TAB10 SL; +OXYC-57 PO
[2017-08-19 11:22] VITALS: TEMP 36.8; Ht 175.3 cm; Wt 113.0 kg
[2017-08-19] MEDS ORDERED: ONDANSETRON INJ 2 MG/ML 2 ML VIAL IV STA (12:04)
[2017-08-19] MEDS ORDERED: MoRPHine SULFATE 4 MG/ML 1 ML CARP\\VIAL IV STA (12:04)
[2017-08-19 12:37] LABS: BASO % 0.4 %; BASO ABS # 0.03 K/uL (0-0.2); EOS % 1.5 %; EOS ABS # 0.13 K/uL (0-0.5); HEMATOCRIT 41.5 % (42-52); HEMOGLOBIN 14.2 g/dL (14.0-18.0); IG# 0.03 K/uL (0.00-0.02); LYMPH % 29.2 %; LYMPH ABS # 2.47 K/uL (1.2-3.4); MEAN CELL VOLUME 92.6 fL (80-100); MEAN CORPUSCULAR HEMOGLOBIN 31.7 pg (25-34); MEAN CORPUSCULAR HGB CONC 34.2 g/dl (32-36); MEAN PLATELET VOLUME 10.5 fL (7.4-10.4); MONO % 7.1 %; NEUT % 61.4 %; PLATELET COUNT 197 K/uL (130-400); RED CELL DISTRIBUTION WIDTH CV 12.5 % (11.5-14.5); RED CELL DISTRIBUTION WIDTH SD 42.3 fL (36.4-46.3); WHITE BLOOD COUNT 8.46 K/uL (4.8-10.8)
--- NOTE | 2017-08-19 12:47 | DIAGNOSTIC IMAGING REPORT ---
ABDOMEN 2VIEW W/PA CHEST RTN CLINICAL HISTORY: Left upper abd pain pain COMPARISON STUDY: 08/09/2016 FINDINGS: Minimal atelectasis left base. Lungs otherwise are clear. Abdomen shows a nonobstructive bowel pattern. Multiple pelvic vascular calcifications are present. There are postoperative changes in the right flank. IMPRESSION: Minimal atelectasis left base. Negative abdomen. The above report was generated using voice recognition software. It may contain grammatical, syntax or spelling errors. Electronically signed by: Eric Cassidy M.D. 08/19/2017 12:46 PM Dictated Date/Time: 08/19/2017 12:45 PM
[2017-08-19 12:57] LABS: ALBUMIN 4.1 gm/dl (3.4-5.0); CALCIUM 9.5 mg/dl (8.5-10.1); CREATININE 1.04 mg/dl (0.60-1.40); POTASSIUM 3.6 mmol/L (3.5-5.1)
[2017-08-19 13:00] LABS: TOTAL PROTEIN 7.6 gm/dl (6.4-8.2)
[2017-08-19] MEDS ORDERED: KETOROLAC TROMETHAMINE 30 MG/ML VIAL IV STA (14:59)
--- NOTE | 2017-08-19 15:48 | DIAGNOSTIC IMAGING REPORT ---
GALLBLADDER-ABD LIMITED CLINICAL HISTORY: RUQ abd pain nausea TECHNIQUE: Ultrasound COMPARISON STUDY: 08/09/2016 FINDINGS: Normal gallbladder. Common bile duct 5 mm. Fatty infiltration of liver. Pancreas is poorly seen. Right kidney negative for hydronephrosis IMPRESSION: Negative study. Mild fatty infiltration of liver. The above report was generated using voice recognition software. It may contain grammatical, syntax or spelling errors. Electronically signed by: Eric Cassidy M.D. 08/19/2017 3:47 PM Dictated Date/Time: 08/19/2017 3:46 PM
[2017-08-19 15:53] VITALS: BP 128/68; PULSE 78; O2SAT 97
--- NOTE | 2017-08-19 17:47 | EMERGENCY ROOM VISIT NOTE ---
History First contact with patient: 11:41 Chief Complaint: ABDOMINAL PAIN Stated Complaint: GALLBLADDER Nursing Triage Summary: pt states he has had gallbladder problems for yeart but pain has been getting worse was seen here monday and pain has gotten worse and dr harrell told him to go to the ED History of Present Illness The patient is a 66 year old white male who presents to the Emergency Room with complaints of upper abdominal pain that became worse last night and this morning. He has had intermittent upper abdominal pain for the last several years. He was seen here last year around this time for similar issues. He states he actually had surgery scheduled for removal last year but canceled it and his symptoms went away. He thought they were gone for good. He was seen here 5 days ago for right upper quadrant abdominal pain. CT scan at that time showed an enlarged gallbladder but no stones. He had a HIDA scan in [place] 2 days ago that showed diminished gallbladder ejection fraction at 1.65%. No evidence for cystic duct or common bile duct obstruction. He denies any fevers or chills. He notes right upper quadrant abdominal pain but also epigastric pain and left-sided discomfort. He has had nausea but no vomiting. He thought that walking would make the pain go away but it has not. He moved his bowels yesterday without difficulty. No fever but he does have chills. His accompanies him today. No back pain. No shortness of breath or chest pain. He has been eating a low-fat diet. Review of Systems REVIEW OF SYSTEM: HEENT: No dizziness, visual problems, hearing loss, or tinnitus. There is no difficulty swallowing and no oral lesions are present. PULMONARY: No cough, shortness of breath, sputum production or hemoptysis. CARDIOVASCULAR: No chest pain, palpitations, shortness of breath or peripheral edema. GASTROINTESTINAL: No diarrhea, constipation, or vomiting. Positive nausea and abdominal pain. GENITOURINARY: No dysuria, frequency, urgency or nocturia. NEUROLOGIC: No weakness, muscle tenderness, epilepsy or history of neurological problems MUSCULOSKELETAL: No history of joint tenderness/swelling. No history of arthritis or arthralgias. SKIN: No rashes or lesions. PSYCHIATRIC: No history of depression or mental illness. ENDOCRINE: No history of thyroid disorders, or abnormal hair growth. Past Medical/Surgical History Medical Problems: (1) Colon cancer (2) Diabetes (3) Diverticulitis (4) Hypertension (5) Kidney stone Surgical Problems: (1) S/P partial colectomy Family History Cancer Diabetes mellitus Gallbladder disease Hypertension Kidney disease Kidney stones Social History Smoking Status: Never Smoker Smokeless Tobacco Use: No Alcohol Use: none Drug Use: none Marital Status: Housing Status: lives with significant other Occupation Status: employed Current/Historical Medications Scheduled Atorvastatin (Lipitor), 10 MG PO QAM Cinnamon (Cinnamon), 1,000 MG PO BID Fish Oil ([place]-3), 1 CAP PO BID Glipizide (Glucotrol), 10 MG PO BID Multivitamin (Multivitamin), 1 TAB PO QAM Olmesartan/Hctz (Benicar Hct 20/12.5), 1 TAB PO QAM Physical Exam Vital Signs Date Time Temp Pulse Resp B/P (MAP) Pulse Ox O2 Delivery O2 Flow Rate FiO2 08/19/17 15:53 78 18 128/68 97 Room Air 08/19/17 14:15 73 16 134/65 95 Room Air 08/19/17 12:17 58 133/71 97 Room Air 08/19/17 11:22 36.8 68 18 171/84 98 Room Air Physical Exam General: Well-developed, well-nourished, middle-aged white male, in obvious discomfort. No acute distress. Laying on the bed. Alert and oriented. Skin: Warm and dry with good turgor. No rashes or lesions. No ecchymosis or erythema. The patient is not diaphoretic. No abrasions. HEENT: Normocephalic atraumatic. Eyes PERRLA, EOMI. No conjunctiva or scleral injection. Nares patent bilaterally without turbinate enlargement. No significant drainage. No epistaxis. Oropharynx without erythema or exudate. Uvula midline, oral mucosa moist. No lesions present. Heart: Heart RRR. No MGR. Peripheral pulses are 2+. Lungs: Lungs are clear to auscultation. No crackles rhonchi or wheezing. Good air movement. The patient is able to take a deep breath. Abdomen: Abdomen was inspected, auscultated, and palpated. Obese. Bowel sounds present x 4 but infrequent. Soft, right upper quadrant and epigastric tenderness to palpation. No hepato-splenomegaly. No masses noted. No rebound , negative López sign. No pain over McBurney's point. Musculoskeletal: Gross motor function of the upper and lower extremities is intact and unremarkable. Neurologic: Gross sensation is intact across the upper and lower extremities by soft touch. Medical Decision & Procedures ER Provider Diagnostic Interpretation: Ultrasound obtained today of the gallbladder was read by radiology is unremarkable. Acute abdominal x-ray series obtained today was reviewed by me and read by radiology. Minimal atelectasis left base. Negative abdomen. No evidence for obstruction. EKG obtained today shows sinus bradycardia with first-degree AV block. Rate of 58. No acute ST or T-wave changes. This was reviewed by me and with Dr. Moody. Laboratory Results 08/19/17 12:25 Red Blood Count 4.48, Mean Corpuscular Volume 92.6, Mean Corpuscular Hemoglobin 31.7, Mean Corpuscular Hemoglobin Concent 34.2, Mean Platelet Volume 10.5, Neutrophils (%) (Auto) 61.4, Lymphocytes (%) (Auto) 29.2, Monocytes (%) (Auto) 7.1, Eosinophils (%) (Auto) 1.5, Basophils (%) (Auto) 0.4, Neutrophils # (Auto) 5.20, Lymphocytes # (Auto) 2.47, Monocytes # (Auto) 0.60, Eosinophils # (Auto) 0.13, Basophils # (Auto) 0.03 08/19/17 12:25 Test 08/19/17 12:25 White Blood Count 8.46 K/uL (4.8-10.8) Red Blood Count 4.48 M/uL (4.7-6.1) Hemoglobin 14.2 g/dL (14.0-18.0) Hematocrit 41.5 % (42-52) Mean Corpuscular Volume 92.6 fL (80-100) Mean Corpuscular Hemoglobin 31.7 pg (25-34) Mean Corpuscular Hemoglobin Concent 34.2 g/dl (32-36) Platelet Count 197 K/uL (130-400) Mean Platelet Volume 10.5 fL (7.4-10.4) Neutrophils (%) (Auto) 61.4 % Lymphocytes (%) (Auto) 29.2 % Monocytes (%) (Auto) 7.1 % Eosinophils (%) (Auto) 1.5 % Basophils (%) (Auto) 0.4 % Neutrophils # (Auto) 5.20 K/uL (1.4-6.5) Lymphocytes # (Auto) 2.47 K/uL (1.2-3.4) Monocytes # (Auto) 0.60 K/uL (0.11-0.59) Eosinophils # (Auto) 0.13 K/uL (0-0.5) Basophils # (Auto) 0.03 K/uL (0-0.2) RDW Standard Deviation 42.3 fL (36.4-46.3) RDW Coefficient of Variation 12.5 % (11.5-14.5) Immature Granulocyte % (Auto) 0.4 % Immature Granulocyte # (Auto) 0.03 K/uL (0.00-0.02) Anion Gap 7.0 mmol/L (3-11) Est Creatinine Clear Calc Drug Dose 89.0 ml/min Estimated GFR () 87.5 Estimated GFR (Non- 75.5 BUN/Creatinine Ratio 11.8 (10-20) Calcium Level 9.5 mg/dl (8.5-10.1) Total Bilirubin 0.6 mg/dl (0.2-1) Aspartate Amino Transf (AST/SGOT) 13 U/L (15-37) Alanine Aminotransferase (ALT/SGPT) 30 U/L (12-78) Alkaline Phosphatase 75 U/L (45-117) Total Protein 7.6 gm/dl (6.4-8.2) Albumin 4.1 gm/dl (3.4-5.0) Globulin 3.5 gm/dl (2.5-4.0) Albumin/Globulin Ratio 1.2 (0.9-2) Amylase Level 44 U/L (25-115) Lipase 157 U/L (73-393) CBC, chem panel, amylase and lipase were all obtained. They are unremarkable. Medications Administered Medications (Trade) Dose Ordered Sig/Bladimir Route Start Time Stop Time Status Last Admin Dose Admin Ondansetron HCl (Zofran Inj) 4 mg NOW STAT IV 08/19/17 12:04 08/19/17 12:08 DC 08/19/17 12:14 4 MG Morphine Sulfate (MoRPHine SULFATE INJ) 4 mg NOW STAT IV 08/19/17 12:04 08/19/17 12:08 DC 08/19/17 12:15 4 MG Ketorolac Tromethamine (Toradol Inj) 30 mg NOW STAT IV 08/19/17 14:59 08/19/17 15:00 DC 08/19/17 15:07 30 MG ED Course Patient was educated regarding today's findings. Conservative care measures were discussed. IV was established. Labs were obtained. Ultrasound and acute abdominal series were also obtained. EKG was unremarkable. He was given morphine 4 mg IV and Toradol 30 mg IV for pain control. He was also given Zofran 4 mg IV for nausea. Patient remained stable. I did speak with Dr. Fajardo from general surgery regarding this patient. He agrees that the patient needs cholecystectomy, but it is not emergent at this time given that he has no fever, acute radiographic findings, or elevated white count. This was discussed with the patient. He will call Dr. Fajardo's office on Monday for follow-up on Monday and likely schedule surgery. He has Percocet at home for pain control. Continue his bland diet. Return to the ED for any acute changes. Care plan was discussed with Dr. Moody. Medical Decision Possibility of ACS, angina, acute cholecystitis, pancreatitis, bowel obstruction , gastritis, perforation, and bile duct obstruction were considered among others. [place] Drug Monitoring Program Search Results: patient reviewed within database, no issues identified Medication Reconcilliation Current Medication List: was personally reviewed by me Blood Pressure Screening Blood pressure disposition: Elevated BP felt to be situational Impression Primary Impression: Recurrent upper abdominal pain Departure Information Dispostion Home / Self-Care Condition GOOD Referrals Bonilla Fajardo M.D. Forms Call Back Authorization, HOME CARE DOCUMENTATION FORM, IMPORTANT VISIT INFORMATION Patient Instructions My [facility] Additional Instructions Eat a bland diet-limit fats, spices, and sauces. Call Dr. Fajardo on Monday for follow-up on Monday Use your Percocet as needed Return to the ED for any acute worsening of symptoms
== END 2017-08-19 16:23 | disposition home or self-care (01) ==
LOC: C.EDB 11:20 → C.EDC 16:23
DX: R10.11 Right upper quadrant pain (principal); Z85.038 Personal history of other malignant neoplasm of large intestine; E11.9 Type 2 diabetes mellitus without complications; I10 Essential (primary) hypertension; E66.9 Obesity, unspecified; Z87.442 Personal history of urinary calculi; Z90.49 Acquired absence of other specified parts of digestive tract; Z80.9 Family history of malignant neoplasm, unspecified; Z83.3 Family history of diabetes mellitus; Z82.49 Family history of ischemic heart disease and other diseases of the circulatory system; Z84.1 Family history of disorders of kidney and ureter; Z79.84 Long term (current) use of oral hypoglycemic drugs; Z79.899 Other long term (current) drug therapy

== ENCOUNTER 2019-03-10 08:12 | Observation (INO) ==
--- OUTSIDE RECORDS SUMMARY | 2019-03-10 08:16 | External Medical Summary | Continuity of Care Document ---
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 Luna Yoon I. Start: 02-Jun-2017 Quantity: 90 Refills: 3 Lipitor TABS Refills: 0 Benicar HCT 40-25 MG Oral Tablet; TAKE 1/2 TABLET DAILY. Refills: 0 traMADol HCl - 50 MG Oral Tablet; TAKE 1 TABLET EVERY 6 HOURS NEEDED FOR PAIN. Refills: 0 glipiZIDE 10 MG Oral Tablet Refills: 0 HYDROcodone-Acetaminophen 5-325 MG Oral Tablet; TAKE 1 TO 2 TABLETS EVERY 4 TO 6 HOURS NEEDED FOR PAIN. Refills: 0 Procedures History of Complete Colonoscopy Status: Completed History of Partial Colectomy Status: Com pleted History of Appendectomy Status: Complete d History of Shoulder Surgery Status: Comp leted History of Knee Arthroscopy (Therapeutic) Status: Completed History of Laser Vaporization With Transurethral Resection O f Status: Completed Prostate Immunizations Immunizations not documented Family History Mother Family history of Breast Cancer (V16.3) Status: Active Brother Family history of Diabetes Mellitus (V18.0) Status: Active Family history of Hypertension (V17.49) Status: Active Sister Family history of Hypertension (V17.49) Status: Active Family history of Diabetes Mellitus (V18.0) Status: Active Social History - Smoking Status Never smoker Plan of Treatment Planned Observations Planned Goals not documented Results No Known Results Results not documented Encounters Appointment; Mark Yoon M.D. 19-Jun-2018 15:00 Encounter Diagnosis: Problem not documented Appointment; Mark Yoon M.D. 02-Jun-2017 10:00 Encounter Diagnosis: Problem not documented
[2019-03-10 09:00] LABS: Basophils # (auto) 0.02 K/uL (0-0.2); Basophils % (auto) 0.3 %; Eosinophils # (auto) 0.14 K/uL (0-0.5); Hematocrit (blood only) 42.2 % (42-52); Hemoglobin 14.1 g/dL (14.0-18.0); Immature Granulocytes # (auto) 0.04 K/uL (0.00-0.02); Immature Granulocytes % (auto) 0.6 %; Lymphocytes # (auto) 2.02 K/uL (1.2-3.4); Lymphocytes % (auto) 29.3 %; Mean Corpuscular Hemoglobin 32.2 pg (25-34); Mean Corpuscular Hgb Conc 33.4 g/dL (32-36); Mean Corpuscular Volume 96.3 fL (80-100); Mean Platelet Volume 10.7 fL (7.4-10.4); Monocytes # (auto) 0.63 K/uL (0.11-0.59); Monocytes % (auto) 9.1 %; Neutrophils # (auto) 4.04 K/uL (1.4-6.5); Neutrophils % (auto) 58.7 %; Platelet Count 203 K/uL (130-400); RDW Coefficient of Variation 12.6 % (11.5-14.5); RDW Standard Deviation 44.1 fL (36.4-46.3); Red Blood Count 4.38 M/uL (4.7-6.1); White Blood Count 6.89 K/uL (4.8-10.8)
[2019-03-10] MEDS ORDERED: SODIUM CHLORIDE 0.9% 500 ML IV SCH (09:00)
[2019-03-10 09:08] LABS: Alanine Aminotransferase 28 U/L (12-78); Albumin Level 3.7 gm/dl (3.4-5.0); Aspartate Aminotransferase 15 U/L (15-37); BUN Creatinine Ratio 15.9 (10-20); Blood Urea Nitrogen 15 mg/dl (7-18); Calcium 9.1 mg/dl (8.5-10.1); Carbon Dioxide 29 mmol/L (21-32); Chloride 107 mmol/L (98-107); Creatinine Clr Calc Pharmacy 94.7 ml/min; Est GFR (African American) 95.1; Glucose 154 mg/dl (70-99); Lipase 134 U/L (73-393); Potassium 4.3 mmol/L (3.5-5.1); Sodium 140 mmol/L (136-145)
[2019-03-10 09:12] LABS: Albumin Globulin Ratio 1.3 (0.9-2); Alkaline Phosphatase 91 U/L (45-117); Bilirubin,Total 0.4 mg/dl (0.2-1); Globulin 2.9 gm/dl (2.5-4.0); Total Protein 6.6 gm/dl (6.4-8.2); Troponin I < 0.015 ng/ml (0-0.045)
--- NOTE | 2019-03-10 09:33 | XRay Report ---
XR chest 1V portable CLINICAL HISTORY: Atypical chest pain COMPARISON STUDY: 02/28/2018 FINDINGS: The heart is the upper limits of normal in size. There is no failure. There is no focal pul monary consolidation. There are no pleural effusions. There is a prominent left cardiophrenic angle f at pad.[ IMPRESSION: No active disease in the chest. Electronically signed by: Tj Weaver M.D. 03/10/2019 9:31 AM
[2019-03-10] MEDS ORDERED: GLUCOSE 40% GEL 15 GM TUBE PO PRN (11:55)
[2019-03-10] MEDS ORDERED: DEXTROSE 50% 50 ML SYRINGE IV PRN (11:55)
[2019-03-10] MEDS ORDERED: CARBOHYDRATES FOR HYPOGLYCEMIA PO PRN (11:55)
[2019-03-10] MEDS ORDERED: ACETAMINOPHEN 325 MG TAB PO PRN (11:55)
[2019-03-10] MEDS ORDERED: GLUCAGON FOR INJ 1 MG VIAL SQ PRN (11:55)
[2019-03-10] MEDS ORDERED: GLUCOSE 10 TABS/TUBE PO PRN (11:55)
[2019-03-10] MEDS ORDERED: METOPROLOL TARTRATE 25 MG TAB PO ONE (11:55)
--- NOTE | 2019-03-10 12:12 | History & Physical Report ---
Date of Service March 10, 2019 Assessment & Plan (1) Chest tightness: (2) Palpitations: -Admit to telemetry -Patient presenting with reports of 6 weeks of chest tightness, palpitations, shortness of breath that is worse with minimal exertion -Patient also reports lightheadedness and dizziness after taking losartan (this medication was changed from olmesartan but 1 month ago) -In the ED, initial troponin negative and EKG without acute ST changes -Recently completed a zio patch as an outpatient however results are not yet available -Serial cardiac enzymes, if remain negative stress test in a.m. 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 (4) Hypertension: -BP intermittently elevated in the ED -Antihypertensive medication changes as above (5) Hyperlipidemia: -Continue statin (6) DVT prophylaxis: -SQ Lovenox History of Present Illness Chief Complaint: Chest pain, palpitations Primary Care Provider: Lucho Lang, DO 68-year-old male who presents the ED for evaluation of chest pain and palpitations. Patient reports his symptoms began about a month and a half ago. He reports a persistent chest tightness over this time that is worse with minimal exertion. He also has associated shortness of breath. Chest tightness is located over the left side of his chest. He denies any radiation of the pain into his jaw, neck, shoulder, arm. Recently patient's blood pressure medication was changed from olmesartan to losartan. He has noted that after he takes his losartan he has some increased lightheadedness and dizziness. He has not had any syncopal events. He has been monitoring his blood pressure and blood sugar during his lightheaded and dizziness episodes and reports both readings have been normal. He was recently evaluated as an outpatient for these complaints and had a ZIO Patch. This was recently placed in the mail a few days ago and results are not available. He is scheduled to see cardiology on 03/18. Patient denies any other recent illnesses, fevers, chills. No abdominal pain, nausea, vomiting, diarrhea. He denies any urinary symptoms. In the ED, patient's initial troponin is negative and EKG does not show any acute ST changes. Other labs are unremarkable. He was given some IVF. Allergies Allergy/AdvReac Type Severity Reaction Status Date / Time No Known Drug Allergies Allergy Unknown . Verified 03/10/19 08:52 adhesive AdvReac Unknown RASH AND Verified 03/10/19 08:52 SKIN IRRITATION Home Medications Home Medications Medication Instructions Recorded Confirmed Type aspirin 81 mg PO DAILY 02/28/18 03/10/19 History atorvastatin [Lipitor] 10 mg PO DAILY 02/28/18 03/10/19 History glipizide 5 mg PO BID 05/04/18 03/10/19 History losartan 50 mg PO DAILY 03/10/19 03/10/19 History Past Med/Surg History Medical History History of colon cancer (Chronic) CALDERON (obstructive sleep apnea) (Chronic) DM type 2 (diabetes mellitus, type 2) (Chronic) Hyperlipidemia (Chronic) Benign prostatic hypertrophy with urinary frequency (Chronic) Hypertension (Chronic) Recurrent upper abdominal pain Surgical History History of partial colectomy (Chronic) History of total left knee replacement (Chronic) History of appendectomy (Chronic) History of appendectomy History of cholecystectomy History of partial colectomy History of total knee arthroplasty Family History Mother Breast cancer Brother Diabetes Sister Diabetes Social History Preferred Language: Nicaraguan 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[employer] Furniture Required: No Beliefs That Will Affect Care: None Current Living Situation: Spouse Other Information That Helps Us Care for You: No Feels Safe at Home: Yes Smoking Status: Never smoker Second Hand Exposure: No ; Hx Alcohol Use: Yes Hx Substance Use: No Review of Systems Review of Systems: ROS per HPI, all other systems reviewed and negative Physical Exam Constitutional: WD/WN, vitals as above Eyes: PERRL, conjunctivae normal, anicteric sclerae ENMT: external ear and nose normal, oropharynx normal Respiratory: normal respiratory effort, lungs clear to auscultation Cardiovascular: Rate/Rhythm: regular rate and regular rhythm Vessels: normal peripheral pulses Extremities: no edema Gastrointestinal (Abdomen): normal bowel sounds, soft, nontender, no hepatosplenomegaly Musculoskeletal: no cyanosis or clubbing, extremities motor strength 5/5 Skin: no rashes, warm and dry Neurologic: PERRL, EOMI, accommodation nl, no face palsy, no dysarthria Psychiatric: A+Ox3, euthymic affect Results & Data Vital Signs (Past 12 Hours) Vital Signs Temp Pulse Resp BP Pulse Ox 03/10/19 11:30 12 151/83 H 97 03/10/19 11:00 16 167/80 H 100 03/10/19 10:30 13 137/79 97 03/10/19 10:00 14 141/84 H 95 03/10/19 09:30 14 136/69 97 03/10/19 09:00 61 11 L 126/72 97 03/10/19 08:49 64 10 L 135/88 03/10/19 08:34 70 17 163/83 H 97 03/10/19 08:32 62 16 142/75 H 98 03/10/19 08:30 63 13 98 03/10/19 08:25 69 17 99 03/10/19 08:21 67 7 L 160/82 H 99 03/10/19 08:18 36.6 C 66 20 160/82 H 99 Laboratory Results Short CBC 03/10/19 Range/Units 08:35 WBC 6.89 (4.8-10.8) K/uL Hgb 14.1 (14.0-18.0) g/dL Hct 42.2 (42-52) % Plt Count 203 (130-400) K/uL BMP 03/10/19 08:35 Sodium 140 Potassium 4.3 Chloride 107 Carbon Dioxide 29 BUN 15 Creatinine 0.96 Glucose 154 H Calcium 9.1 Cardiac Enzymes 03/10/19 Range/Units 08:35 Troponin I < 0.015 (0-0.045) ng/ml Liver Function 03/10/19 Range/Units 08:35 Total Bilirubin 0.4 (0.2-1) mg/dl AST 15 (15-37) U/L ALT 28 (12-78) U/L Alkaline Phosphatase 91 (45-117) U/L Albumin 3.7 (3.4-5.0) gm/dl Diagnostic Findings CXR IMPRESSION: No active disease in the chest. Code Status & VTE Plan VTE Prophylaxis Plan VTE Prophylaxis will be ordered: Yes Supervising Physician Co-Signing Physician Notes Patient is a 68-year-old male presents for intermittent left-sided chest pain, palpitations, dyspnea on exertion and dizziness which has been ongoing since past 3 to 4 weeks. His last stress stress is in 2018 which was negative. Initial troponin negative. Chest x-ray showed no acute disease. EKG showed sinus rhythm with first-degree AV block, no signs of acute ischemia. He was recently changed from Olmesartan to losartan. She states being intolerant to losartan. 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 On exam patient is well- built and nourished, no apparent distress, normocephalic atraumatic, lungs are clear to auscultation, S1-S2, no murmur, abdomen soft nontender, normal bowel sounds, no pedal edema, grossly no focal neurological deficits, B/L LE varicose veins. Patient is admitted for evaluation of ongoing chest pain associated with shortness of breath, dizziness and palpitations. Agree with serial cardiac enzymes, stress echo in a.m., cardiology consult. Check TSH, lipid panel, A1c. Hold losartan for now. Plan to start on metoprolol. Keep him n.p.o. after midnight for stress test in AM. I personally reviewed the record. Patient is interviewed and examined at bedside. Patient's care is coordinated with Irma Vargas NP. Please refer to the documentation above for details of patient's presentation and for discussion of other issues.
--- NOTE | 2019-03-10 12:41 | Emergency Department Note ---
Entered by Vandana Ovalles acting as a scribe for History of Present Illness General Chief complaint: Chest Pain Stated complaint: CHEST PAIN - WEAKNESS Time Seen by Provider: 03/10/19 08:32 Source: patient History of Present Illness Onset (ago): week(s) 2 Location: chest Pain Consistency: + intermittent Maximum Pain Intensity: 3 Quality: + other (tightness) Exacerbated By: + medication (Losartan) and + movement (exertion) Associated symptoms: + other (dizziness with standing, shortness of breath with exertion, nausea, feeling cold) The patient is a 68 year old male that is presenting to the Emergency Room with complaints of intermittent tightness in the chest that started 2 weeks ago. The patient reports that he has some associated nausea during these episodes. He states that he is short of breath with any exertion. He reports that he has to sit down for a while to catch his breath. He notes that he feels cold. He states that he feels dizzy with standing during these episodes and feels like he could fall forward. He reports that he switched blood pressure medication from Benicar to Losartan 1.5 months ago because Benicar is no longer available. The patient states that he feels worse whenever he takes this new medication. He notes that he did not have similar symptoms with Benicar. He reports that he saw his PCP, Dr. Lang, yesterday and was told to start cutting his Losartan in half. The patient states that last year he was taken off Benicar for a brief period of time secondary to hypotensive episodes. He notes that he was restarted on Benicar after his hypertension returned. The patient states that he is unsure when he last had a stress test but he believes it was last year. Home Medications Home Medications Medication Instructions Recorded Confirmed Type aspirin 81 mg PO DAILY 02/28/18 03/10/19 History atorvastatin [Lipitor] 10 mg PO DAILY 02/28/18 03/10/19 History glipizide 5 mg PO BID 05/04/18 03/10/19 History losartan 50 mg PO DAILY 03/10/19 03/10/19 History Allergies Allergy/AdvReac Type Severity Reaction Status Date / Time No Known Drug Allergies Allergy Unknown . Verified 03/10/19 08:52 adhesive AdvReac Unknown RASH AND Verified 03/10/19 08:52 SKIN IRRITATION Past Med/Surg History Medical History History of colon cancer (Chronic) CALDERON (obstructive sleep apnea) (Chronic) DM type 2 (diabetes mellitus, type 2) (Chronic) Hyperlipidemia (Chronic) Benign prostatic hypertrophy with urinary frequency (Chronic) Hypertension (Chronic) Recurrent upper abdominal pain Surgical History History of partial colectomy (Chronic) History of total left knee replacement (Chronic) History of appendectomy (Chronic) History of appendectomy History of cholecystectomy History of partial colectomy History of total knee arthroplasty Family History Mother Breast cancer Brother Diabetes Sister Diabetes Social History Preferred Language: Swedish Communication 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 and A total of 10 systems reviewed and were otherwise negative Physical Exam Vital Signs Vital Signs - 24 hr 03/10/19 08:18 03/10/19 08:21 03/10/19 08:25 Temperature 36.6 C Temperature Source Oral Sepsis Recent Fever Within 48 Hours No Sepsis Action Taken by Nursing No Action Required Pulse Oximetry Post Tiitration Pulse Rate - Lying Pulse Rate - Sitting Pulse Rate - Standing Pulse Rate 66 67 69 Pulse Rate from SpO2 Sensor 68 68 Pulse Rhythm Respiratory Rate 20 7 L 17 Blood Pressure - Lying Blood Pressure - Sitting Blood Pressure- Standing Blood Pressure 160/82 H 160/82 H Blood Pressure Mean 108 108 Pulse Oximetry 99 99 99 Oxygen Delivery Method Room Air 03/10/19 08:30 03/10/19 08:32 03/10/19 08:33 Temperature Temperature Source Sepsis Recent Fever Within 48 Hours Sepsis Action Taken by Nursing Pulse Oximetry Post Tiitration Pulse Rate - Lying 64 Pulse Rate - Sitting 85 Pulse Rate - Standing 70 Pulse Rate 63 62 Pulse Rate from SpO2 Sensor 63 62 Pulse Rhythm Respiratory Rate 13 16 Blood Pressure - Lying 142/75 H Blood Pressure - Sitting 164/73 H Blood Pressure- Standing 163/83 H Blood Pressure 142/75 H Blood Pressure Mean 97 Pulse Oximetry 98 98 Oxygen Delivery Method 03/10/19 08:34 03/10/19 08:49 03/10/19 09:00 Temperature Temperature Source Sepsis Recent Fever Within 48 Hours Sepsis Action Taken by Nursing Pulse Oximetry Post Tiitration 96 Pulse Rate - Lying Pulse Rate - Sitting Pulse Rate - Standing Pulse Rate 70 64 61 Pulse Rate from SpO2 Sensor 69 60 Pulse Rhythm Regular Respiratory Rate 17 10 L 11 L Blood Pressure - Lying Blood Pressure - Sitting Blood Pressure- Standing Blood Pressure 163/83 H 135/88 126/72 Blood Pressure Mean 109 103 90 Pulse Oximetry 97 97 Oxygen Delivery Method Room Air 03/10/19 09:30 03/10/19 10:00 03/10/19 10:30 Temperature Temperature Source Sepsis Recent Fever Within 48 Hours Sepsis Action Taken by Nursing Pulse Oximetry Post Tiitration Pulse Rate - Lying Pulse Rate - Sitting Pulse Rate - Standing Pulse Rate Pulse Rate from SpO2 Sensor 61 56 L 59 L Pulse Rhythm Respiratory Rate 14 14 13 Blood Pressure - Lying Blood Pressure - Sitting Blood Pressure- Standing Blood Pressure 136/69 141/84 H 137/79 Blood Pressure Mean 91 103 98 Pulse Oximetry 97 95 97 Oxygen Delivery Method CONSTITUTIONAL/VITAL SIGNS: Reviewed / noted above. GENERAL: Non-toxic in appearance. INTEGUMENTARY: Warm, dry, and [place]. HEAD: Normocephalic. EYES: without scleral icterus or trauma. ENT/OROPHARYNX: clear and moist. LYMPHADENOPATHY/NECK: Is supple without lymphadenopathy or meningismus. RESPIRATORY: Lungs clear and equal. CARDIOVASCULAR: Regular rate and rhythm. GI/ABDOMEN: Soft and nontender. No organomegaly or pulsatile mass. No rebound or guarding. Normal bowel sounds. EXTREMITIES: Warm and well perfused. BACK: No CVA tenderness. NEUROLOGICAL: Intact without focal deficits. PSYCHIATRIC: normal affect. MUSCULOSKELETAL: Normally developed with good muscle tone. Course 0833:The patient was evaluated in room B10. A complete history and physical examination was performed. 1020: I updated the patient on his current lab and imaging results. The patient states that he does not feel stable for discharge. 1026: I discussed the patient's case with STACEY Lacey, who will evaluate the patient for further management and to discuss setting up an outpatient Cardiology appointment for the patient. The patient will be kept in the hospital for observation with Dr. Avelar as the attending physician. 1100: Upon reevaluation, the patient is resting comfortably. I discussed laboratory and radiographic results with the patient. He verbalized agreement of the treatment plan. The patient will be evaluated for further management and care. Administered Medications Discontinued Medications Sodium Chloride (Nss) 500 mls @ 999 mls/hr IV .Q31M MIGUELITO Stop: 03/10/19 09:30 Last Infusion: 03/10/19 10:26 Dose: 0 mls/hr Documented by: [id number] Admin: 03/10/19 09:06 Dose: 999 mls/hr Documented by: [id number] Medical Decision Making Differential Diagnosis Differential was considered includes acute myocardial infarction, acute coronary syndrome, myocarditis, pericarditis, pericardial effusions /tamponad, esophageal perforation, thoracic aortic dissection, pulmonary embolism, pneumonia, pneumothorax, pancreatitis, shingles, acute cholecystitis, perforated abdominal viscus. Medical Records Attestation: I reviewed the patient's medical records. Home Medications Current Medication List: was personally reviewed by me Laboratory Data Attestation: I reviewed the patient's lab results. Result diagrams: 03/10/19 08:35 03/10/19 08:35 Lab Results 03/10/19 03/10/19 03/10/19 Range/Units 08:35 08:35 08:35 WBC 6.89 (4.8-10.8) K/uL RBC 4.38 L (4.7-6.1) M/uL Hgb 14.1 (14.0-18.0) g/dL Hct 42.2 (42-52) % MCV 96.3 (80-100) fL MCH 32.2 (25-34) pg MCHC 33.4 (32-36) g/dL RDW Std Deviation 44.1 (36.4-46.3) fL RDW Coeff of Damián 12.6 (11.5-14.5) % Plt Count 203 (130-400) K/uL MPV 10.7 H (7.4-10.4) fL Immature Gran % (Auto) 0.6 % Neut % (Auto) 58.7 % Lymph % (Auto) 29.3 % [place] % (Auto) 9.1 % Eos % (Auto) 2.0 % Baso % (Auto) 0.3 % Immature Gran # (Auto) 0.04 H (0.00-0.02) K/uL Neut # (Auto) 4.04 (1.4-6.5) K/uL Lymph # (Auto) 2.02 (1.2-3.4) K/uL Calvert # (Auto) 0.63 H (0.11-0.59) K/uL Eos # (Auto) 0.14 (0-0.5) K/uL Baso # (Auto) 0.02 (0-0.2) K/uL PT 10.0 (9.0-12.0) Seconds INR 1.0 (0.9-1.1) Sodium 140 (136-145) mmol/L Potassium 4.3 (3.5-5.1) mmol/L Chloride 107 (98-107) mmol/L Carbon Dioxide 29 (21-32) mmol/L Anion Gap 4.0 (3-11) BUN 15 (7-18) mg/dl Creatinine 0.96 (0.6-1.4) mg/dl Est Cr Clr Drug Dosing 94.7 ml/min Est GFR ( Amer) 95.1 Est GFR (Non-Af Amer) 82.0 BUN/Creatinine Ratio 15.9 (10-20) Glucose 154 H (70-99) mg/dl Calcium 9.1 (8.5-10.1) mg/dl Total Bilirubin 0.4 (0.2-1) mg/dl AST 15 (15-37) U/L ALT 28 (12-78) U/L Alkaline Phosphatase 91 (45-117) U/L Troponin I < 0.015 (0-0.045) ng/ml Total Protein 6.6 (6.4-8.2) gm/dl Albumin 3.7 (3.4-5.0) gm/dl Globulin 2.9 (2.5-4.0) gm/dl Albumin/Globulin Ratio 1.3 (0.9-2) Lipase 134 (73-393) U/L Imaging Data Radiologist's Impression: Radiology results as stated below per my review and the radiologist's interpretation: XR chest 1V portable CLINICAL HISTORY: Atypical chest pain COMPARISON STUDY: 02/28/2018 FINDINGS: The heart is the upper limits of normal in size. There is no failure. There is no focal pulmonary consolidation. There are no pleural effusions. There is a prominent left cardiophrenic angle fat pad. IMPRESSION: No active disease in the chest. Electronically signed by: Tj Weaver M.D. 03/10/2019 9:31 AM ECG Data Attestation: I personally reviewed and interpreted this ECG as follows: Indication: chest pain Rate (beats per minute): 65 Rhythm: normal sinus Findings: + 1st degree AV block; no PAC, no PVC, no ST elevation and no ectopy Blood Pressure Blood Pressure Findings: Elevated blood pressure Blood Pressure Disposition: Referred to patients primary care provider NASRIN Narrative This is a 68-year-old male who presents to the ED with a chief complaint of tightness in his chest over the left chest wall for the past couple of weeks. He is also had some nausea and dizziness when he gets up and moves around. The patient states that his symptoms started recently but seem to coincide with switching off of Benicar and starting losartan. The patient states that he saw his doctor yesterday and they decreased his medication by half. He states that he seems to be winded when exerting himself and has to sit down and rest to catch his breath. The patient states that he had a stress test possibly a year ago. He states that it was okay. His physical exam was unremarkable. A twelve-lead EKG shows a normal sinus rhythm at a rate of 65. CBC and chemistry panel normal. Troponin was negative, lipase was negative and a chest x-ray did not show acute disease. Because of the patient's exertional component of his symptoms, I spoke with the hospitalist who will see the patient in the ED and determine the disposition of the patient. The patient does have an appointment to see a countersinker in about a week. Impression & Plan Exertional dyspnea, Precordial chest pain The scribe's documentation has been prepared under my direction and personally reviewed by me in its entirety. I confirm that the note above accurately reflects all work, treatment, procedures, and medical decision making performed by me.
[2019-03-10] MEDS: ENOXAPARIN INJ 40 MG/0.4 ML SYR SQ SCH (12:51)
[2019-03-10] MEDS: INSULIN ASPART 100 UNITS/ML 3 ML PEN SC SCH ×3 (12:57→20:54)
[2019-03-10] MEDS ORDERED: NITROGLYCERIN SL 0.4 MG/TAB TAB SL PRN (14:50)
[2019-03-11 07:37] LABS: Mean Corpuscular Hemoglobin 32.6 pg (25-34); Mean Corpuscular Hgb Conc 34.1 g/dL (32-36); Mean Corpuscular Volume 95.3 fL (80-100); Mean Platelet Volume 10.7 fL (7.4-10.4); Platelet Count 181 K/uL (130-400); RDW Coefficient of Variation 12.7 % (11.5-14.5); RDW Standard Deviation 43.7 fL (36.4-46.3); White Blood Count 7.82 K/uL (4.8-10.8)
[2019-03-11 07:58] LABS: Estimated Average Glucose 140 mg/dl; Hemoglobin A1C 6.5 % (4.5-5.6)
[2019-03-11 08:05] LABS: BUN Creatinine Ratio 17.6 (10-20); Calcium 8.8 mg/dl (8.5-10.1); Est GFR (African American) 100.1; Est GFR (Non-African American) 86.4; Potassium 3.9 mmol/L (3.5-5.1)
[2019-03-11 08:15] LABS: Thyroid Stimulating Hormone 0.85 uIu/ml (0.300-4.500)
[2019-03-11] MEDS: INSULIN ASPART 100 UNITS/ML 3 ML PEN SC SCH ×4 (09:16→20:54)
[2019-03-11] MEDS: OLMESARTAN MEDOXOMIL 40 MG TAB PO SCH (14:58)
[2019-03-11] MEDS: ATORVASTATIN 10 MG TAB PO SCH (14:58)
[2019-03-11] MEDS: ASPIRIN 81 MG ECTAB PO SCH (14:58)
[2019-03-11] MEDS: ENOXAPARIN INJ 40 MG/0.4 ML SYR SQ SCH (14:59)
--- NOTE | 2019-03-11 16:46 | Cardiology Consultation ---
Date of Consultation March 11, 2019 Assessment & Plan (1) Chest tightness: Nonischemic exercise stress echocardiogram with profoundly hypertensive blood pressure response to exercise No further ischemic work-up is necessary at this time however strict blood pressure management will be required. (2) Hypertension: The patient will be restarted on his previous olmesartan 40 mg daily and will follow his blood pressure. Given the profoundly hypertensive response to exercise I do believe it would be prudent to monitor him on telemetry overnight and tailor his antihypertensive regimen as necessary. He is in agreement with this plan. We can then keep outpatient follow-up as already scheduled for further blood pressure management. History of Present Illness Reason for Consultation: chest pain Attending Physician: Lito Avelar MD History of Present Illness It was my pleasure to see Mr. Dao in consultation today March 11, 2018. He is a very pleasant 68-year-old gentleman who presented to [facility] on 03/10/2019 with complaints of chest discomfort for over 1 month. He states that approximately 1 month ago his antihypertensive regimen was changed due to low blood pressure readings. He was asymptomatic at that time but his olmesartan 40 mg was changed to losartan 50 mg daily. He states that ever since then he is been having a dull achy pressure sensation across his left precordium. He states it may possibly be worsened with exertion but not significantly so. He has been having some dyspnea as of late as well. Upon arrival to the emergency department he was found to be hypertensive but otherwise unremarkable and he was admitted to telemetry as per his preference rather than following with Eric Marcano as already scheduled on the . Allergies Allergy/AdvReac Type Severity Reaction Status Date / Time No Known Drug Allergies Allergy Unknown . Verified 03/10/19 08:52 adhesive AdvReac Unknown RASH AND Verified 03/10/19 08:52 SKIN IRRITATION Home Medications Home Medications Medication Instructions Recorded Confirmed Type aspirin 81 mg PO DAILY 02/28/18 03/10/19 History atorvastatin [Lipitor] 10 mg PO DAILY 02/28/18 03/10/19 History glipizide 5 mg PO BID 05/04/18 03/10/19 History losartan 50 mg PO DAILY 03/10/19 03/10/19 History Patient History Medical History History of colon cancer (Chronic) CALDERON (obstructive sleep apnea) (Chronic) DM type 2 (diabetes mellitus, type 2) (Chronic) Hyperlipidemia (Chronic) Benign prostatic hypertrophy with urinary frequency (Chronic) Hypertension (Chronic) Recurrent upper abdominal pain Surgical History History of partial colectomy (Chronic) History of total left knee replacement (Chronic) History of appendectomy (Chronic) History of appendectomy History of cholecystectomy History of partial colectomy History of total knee arthroplasty Family History Mother Breast cancer Brother Diabetes Sister Diabetes Social History Preferred Language: [place] Communication Ability: Effective Mig Tig Welder Required: No Beliefs That Will Affect Care: None Current Living Situation: Spouse Other Information That Helps Us Care for You: No Feels Safe at Home: Yes Smoking Status: Never smoker Second Hand Exposure: No ; Hx Alcohol Use: Yes Hx Substance Use: No Review of Systems Review of Systems: All systems reviewed & are unremarkable except as noted in HPI & below Physical Exam Physical Exam: General: Awake, alert and oriented x 3. No acute distress. HEENT: Normocephalic, atraumatic. Pupils equal, round and reactive to light and accommodation. Extraocular muscles are intact. Anicteric sclera. Moist mucous membranes. Neck: No JVD. No bruit. Cardiovascular: Regular. Positive S-4. Normal S-1 and S-2. No S-3. No murmurs or rubs. Pulmonary: Clear to auscultation B/L. No rales, rhonchi or wheezing Abdomen: Bowel sounds x 4, soft. No rebound, guarding or tenderness. No organomegaly. Extremities: No clubbing, cyanosis or edema. +2 pedal pulses bilaterally. Skin: Warm and dry. Results & Data Vital Signs (Past 12 Hours) Vital Signs Temp Pulse Pulse Resp BP BP Pulse Ox 03/11/19 15:54 36.3 C L 58 L 20 155/77 H 98 03/11/19 13:36 36.3 C L 61 19 165/77 H 99 03/11/19 10:58 36.3 C L 62 19 147/74 H 97 03/11/19 08:00 51 L 03/11/19 07:53 36.5 C 55 L 18 155/83 H 97
--- NOTE | 2019-03-11 18:56 | Hospitalist Progress Note ---
Date of Service March 11, 2019 Assessment & Plan (1) Chest tightness: (2) Palpitations: Chest Pain Palpitations Likely due to Hypertension Intolerance to losartan likely contributing to symptoms Recently completed a zio patch as an outpatient however results are not yet available CXR:No active disease in the chest. Nonischemic exercise stress test Lipid panel negative Cardiac Enzymes: Negative Losartan discontinued Restarted olmesartan 40 mg daily monitor on Telemetry Continue aspirin and statin Appreciate Cardiology Input (3) DM type 2 (diabetes mellitus, type 2): HbA1C:6.5 Hold oral agents Continue ISS while hospitalized (4) Hypertension: Discontinued losartan due to intolerance Restarted on olmesartan Monitor (5) Hyperlipidemia: Continue statin (6) DVT prophylaxis: Lovenox SQ Code Status Full Code Disposition: Expect to discharge home when stable Subjective Patient is seen and examined at bedside States having mild dizziness and shortness of breath on exertion this morning Chest pain resolved Denies any nausea, abdominal pain Offers no other complaints Review of Systems Review of Systems: All systems reviewed & are unremarkable except as noted in HPI & below Physical Exam Physical Exam: Physical Exam: Vitals signs as noted above General Appearance:Moderately built and nourished, no apparent distress Head: normocephalic, Atraumatic Eyes: normal inspection, EOMI Neck: supple, Trachea midline Respiratory/Chest: Normal breath sounds, CTA Cardiovascular: S1, S2, No murmur Abdomen/GI:Soft, Non tender, Bowel sounds present Extremities/Musculoskelatal:normal inspection, no edema, + LE Varicose veins Neurologic/Psych:AAOX3, grossly no focal neurological deficits Skin: normal color, warm Results & Data Vital Signs (Past 12 Hours) Vital Signs Temp Pulse Pulse Resp BP BP Pulse Ox 03/11/19 16:00 63 03/11/19 15:54 36.3 C L 58 L 20 155/77 H 98 03/11/19 13:36 36.3 C L 61 19 165/77 H 99 03/11/19 10:58 36.3 C L 62 19 147/74 H 97 03/11/19 08:00 51 L 03/11/19 07:53 36.5 C 55 L 18 155/83 H 97 Laboratory Results Short CBC 03/11/19 Range/Units 07:03 WBC 7.82 (4.8-10.8) K/uL Hgb 14.0 (14.0-18.0) g/dL Hct 41.0 L (42-52) % Plt Count 181 (130-400) K/uL BMP 03/11/19 07:03 Sodium 140 Potassium 3.9 Chloride 108 H Carbon Dioxide 26 BUN 16 Creatinine 0.92 Glucose 101 H Calcium 8.8 Cardiac Enzymes 03/10/19 Range/Units 19:49 Troponin I < 0.015 (0-0.045) ng/ml
[2019-03-12 07:48] LABS: Calcium 9.4 mg/dl (8.5-10.1); Creatinine Clr Calc Pharmacy 90.1 ml/min; Est GFR (African American) 91.6; Potassium 4.2 mmol/L (3.5-5.1)
[2019-03-12] MEDS: OLMESARTAN MEDOXOMIL 40 MG TAB PO SCH (07:52)
[2019-03-12] MEDS: INSULIN ASPART 100 UNITS/ML 3 ML PEN SC SCH (08:51)
--- NOTE | 2019-03-12 10:45 | Hospitalist Progress Note ---
Date of Service March 12, 2019 Assessment & Plan (1) Chest tightness: (2) Palpitations: This is a 68 yr old M who has a significant PMH of HTN, HLD, T2DM, BPH, CALDERON, hx of colon ca s/p partial colectomy who presented to ED 03/10/19 secondary to chest pain and SOB. Sx felt 2/2 uncontrolled HTN Intolerance to losartan likely contributing to symptoms Resumed on previous well tolerated Olmestartan (tolerated in past) CXR:No active disease in the chest Nonischemic exercise stress test - EF WNL, no wall motion abn, significant hypertensive response Lipid panel negative Cardiac Enzymes: Negative Telemetry monitoring reveals NSR 60s Continue aspirin and statin Appreciate Cardiology Input Pt initially seen by myself and was without complaint. After seen by attending complaints of overall not feeling right, sob with exertion Will order stat D-Dimer, if + CTA to r/o PE likely 2/2 to HTN vs anxiety component - monitor closely possible discharge today - pending further work up (3) DM type 2 (diabetes mellitus, type 2): HbA1C:6.5 Hold oral agents Continue ISS while hospitalized Glucose 100 (4) Hypertension: Discontinued losartan due to intolerance Restarted on olmesartan Blood pressure 144/87, goal < 130/80 continue to monitor Also added Amlodipine 2.5 mg daily for better BP control (5) Hyperlipidemia: Continue statin (6) DVT prophylaxis: Lovenox SQ Code Status Full Code Disposition: Discharge home today if further work up negative Patient was seen and examined in collaboration with Dr. Avelar, please see addendum Supervising Physician Co-Signing Physician Notes Patient is seen and examined at bedside. Chest pain improved. No new complaints. Nonischemic exercise stress test yesterday. D-dimer negative. Started on olmesartan for blood pressure control. Also started on amlodipine 2.5 mg daily for better BP Control. Appreciate Cardiology Input. On exam patient is well-built and nourished, no apparent distress, normocephalic atraumatic, lungs are clear to auscultation, S1-S2, no murmur, abdomen soft nontender, normal bowel sounds, no pedal edema, grossly no focal neurological deficits, B/L LE varicose veins. Advised to follow up with PCP and Cardiology upon discharge. I personally reviewed the record. Patient is interviewed and examined at bedside. Patient's care is coordinated with Aleyda Copeland PA-C. Please refer to the documentation above for details of patient's presentation and for discussion of other issues. Subjective Patient was seen and examined in room 241-1. Follow up chest pain and HTN. Currently he overall feels well. He denies any f/c/s, chest pain, sob, palpitations, COYNE, visual changes, n/v/d. He has been ambulating to and from bathroom with out difficult. Appetite is okay. Discussed he gets occasional RLE swelling due to varicose veins. No current peripheral edema. Review of Systems Review of Systems: All systems reviewed & are unremarkable except as noted in HPI & below Physical Exam Physical Exam: Gen: WD/WN, M, obese, NAD, A&O x3 HEENT: Normocephalic, atraumatic, conjunctivae moist, sclerae anicteric, mucous membranes moist. Lung: Clear to Auscultation bilaterally, no wheezes/rales/rhonchi Heart: Regular rate, regular rhythm, no murmurs, rubs, or gallops Abdomen: Soft, NT, ND +BS x 4 Extremities: No edema, RLE varicosites noted, Not painful to palpation, no erythema or warmth. LLE varicosities as well but R > L Skin: Warm, no rash, negative turgor. Results & Data Vital Signs (Past 12 Hours) Vital Signs Temp Pulse Pulse Resp BP BP Pulse Ox 03/12/19 08:00 62 03/12/19 07:50 37.1 C 61 18 144/87 H 99 03/12/19 03:59 36.7 C 58 L 18 129/72 97 03/11/19 23:22 36.7 C 63 18 131/73 95 Laboratory Results [facility] 03/12/19 07:01 Sodium 140 Potassium 4.2 Chloride 105 Carbon Dioxide 31 BUN 17 Creatinine 0.99 Glucose 100 H Calcium 9.4 Diagnostic Findings Echocardiogram: Nonischemic exercise stress echo. Profound hypertensive response to exercise. Normal LV systolic function EF 55 to 60%. Grade 1 diastolic dysfunction. No wall motion abnormalities noted. Mild aortic root dilatation. Aortic valve sclerosis mild. Medications Administered Aspirin (Ecotrin Ectab) 81 mg PO DAILY [facility]IGU[facility]O Stop: 04/10/19 08:59 Last Admin: 03/11/19 14:58 Dose: 81 mg Documented by: [id number] Atorvastatin Calcium (Lipitor) 10 mg PO DAILY [facility] Stop: 04/10/19 08:59 Last Admin: 03/11/19 14:58 Dose: 10 mg Documented by: [id number] Enoxaparin Sodium (Lovenox) 40 mg SQ Q24H [facility] Stop: 04/09/19 12:59 Last Admin: 03/11/19 14:59 Dose: 40 mg Documented by: [id number] Admin: 03/10/19 12:51 Dose: 40 mg Documented by: [id number] Insulin Aspart (Novolog Flexpen) 0 units SC ACHS [facility] Stop: 04/09/19 12:59 Last Admin: 03/12/19 08:51 Dose: Not Given Documented by: [id number] Cosigned by: [id number] Admin: 03/11/19 20:54 Dose: Not Given Documented by: [id number] Cosigned by: [id number] Admin: 03/11/19 18:06 Dose: Not Given Documented by: [id number] Cosigned by: [id number] Admin: 03/11/19 15:02 Dose: Not Given Documented by: [id number] Cosigned by: [id number] Admin: 03/11/19 09:16 Dose: Not Given Documented by: [id number] Cosigned by: [id number] Admin: 03/10/19 20:54 Dose: Not Given Documented by: [id number] Cosigned by: [id number] Admin: 03/10/19 17:30 Dose: 5 units Documented by: [id number] Cosigned by: [id number] Admin: 03/10/19 12:57 Dose: Not Given Documented by: [id number] Cosigned by: [id number] Olmesartan (Benicar) 40 mg PO QAM [facility]IGUELITO Stop: 04/10/19 14:29 Last Admin: 03/12/19 07:52 Dose: 40 mg Documented by: [id number] Admin: 03/11/19 14:58 Dose: 40 mg Documented by: [id number] Discontinued Medications Sodium Chloride (Nss) 500 mls @ 999 mls/hr IV .Q31M [facility] Stop: 03/10/19 09:30 Last Infusion: 03/10/19 10:26 Dose: 0 mls/hr Documented by: [id number] Admin: 03/10/19 09:06 Dose: 999 mls/hr Documented by: [id number] Metoprolol Tartrate (Lopressor) 25 mg PO ONE ONE Stop: 03/10/19 11:56 Last Admin: 03/10/19 12:51 Dose: 25 mg Documented by: [id number] ECG Rate (beats per minute): 56 Rhythm: sinus bradycardia Findings: + 1st degree AV block
[2019-03-12] MEDS: ASPIRIN 81 MG ECTAB PO SCH (10:50)
[2019-03-12] MEDS: ATORVASTATIN 10 MG TAB PO SCH (10:50)
[2019-03-12] MEDS ORDERED: AMLODIPINE BESYLATE 5 MG TAB PO SCH (11:15)
--- NOTE | 2019-03-12 11:27 | Discharge Summary ---
Date of Service March 12, 2019 Admission HPI Per Admitting Provider 68-year-old male who presents the ED for evaluation of chest pain and palpitations. Patient reports his symptoms began about a month and a half ago. He reports a persistent chest tightness over this time that is worse with minimal exertion. He also has associated shortness of breath. Chest tightness is located over the left side of his chest. He denies any radiation of the pain into his jaw, neck, shoulder, arm. Recently patient's blood pressure medication was changed from olmesartan to losartan. He has noted that after he takes his losartan he has some increased lightheadedness and dizziness. He has not had any syncopal events. He has been monitoring his blood pressure and blood sugar during his lightheaded and dizziness episodes and reports both readings have been normal. He was recently evaluated as an outpatient for these complaints and had a ZIO Patch. This was recently placed in the mail a few days ago and results are not available. He is scheduled to see cardiology on 03/18. Patient denies any other recent illnesses, fevers, chills. No abdominal pain, nausea, vomiting, diarrhea. He denies any urinary symptoms. In the ED, patient's initial troponin is negative and EKG does not show any acute ST changes. Other labs are unremarkable. He was given some IVF. Admission Exam Per Admitting Provider Constitutional: WD/WN, vitals as above Eyes: PERRL, conjunctivae normal, anicteric sclerae ENMT: external ear and nose normal, oropharynx normal Respiratory: normal respiratory effort, lungs clear to auscultation Cardiovascular: Rate/Rhythm: regular rate and regular rhythm Vessels: normal peripheral pulses Extremities: no edema Gastrointestinal (Abdomen): normal bowel sounds, soft, nontender, no hepatosplenomegaly Musculoskeletal: no cyanosis or clubbing, extremities motor strength 5/5 Skin: no rashes, warm and dry Neurologic: PERRL, EOMI, accommodation nl, no face palsy, no dysarthria Psychiatric: A+Ox3, euthymic affect Principal Diagnosis Chest Pain Hypertension T2DM HLD Discharge Exam Gen: WD/WN, M, obese, NAD, A&O x3 HEENT: Normocephalic, atraumatic, conjunctivae moist, sclerae anicteric, mucous membranes moist. Lung: Clear to Auscultation bilaterally, no wheezes/rales/rhonchi Heart: Regular rate, regular rhythm, no murmurs, rubs, or gallops Abdomen: Soft, NT, ND +BS x 4 Extremities: No edema, RLE varicosites noted, Not painful to palpation, no erythema or warmth. LLE varicosities as well but R > L Skin: Warm, no rash, negative turgor. Discharge Data Allergies Allergy/AdvReac Type Severity Reaction Status Date / Time No Known Drug Allergies Allergy Unknown . Verified 03/10/19 08:52 adhesive AdvReac Unknown RASH AND Verified 03/10/19 08:52 SKIN IRRITATION Vaccinations Consultations Cardiology Consult: (1) Chest tightness: Nonischemic exercise stress echocardiogram with profoundly hypertensive blood pressure response to exercise No further ischemic work-up is necessary at this time however strict blood pressure management will be required. (2) Hypertension: The patient will be restarted on his previous olmesartan 40 mg daily and will follow his blood pressure. Given the profoundly hypertensive response to exercise I do believe it would be prudent to monitor him on telemetry overnight and tailor his antihypertensive regimen as necessary. He is in agreement with this plan. We can then keep outpatient follow-up as already scheduled for further blood pressure management. Procedures Performed Exercise Stress Echo: Nonischemic exercise stress test - EF WNL, no wall motion abn, significant hypertensive response Ordered Studies [facility] 03/12/19 07:01 Sodium 140 Potassium 4.2 Chloride 105 Carbon Dioxide 31 BUN 17 Creatinine 0.99 Glucose 100 H Calcium 9.4 Hospital Course (1) Chest tightness: (2) Palpitations: This is a 68 yr old M who has a significant PMH of HTN, HLD, T2DM, BPH, CALDERON, hx of colon ca s/p partial colectomy who presented to ED 03/10/19 secondary to chest pain and SOB. Sx felt 2/2 uncontrolled HTN Intolerance to losartan likely contributing to symptoms Resumed on previous well tolerated Olmestartan (tolerated in past) CXR:No active disease in the chest Nonischemic exercise stress test - EF WNL, no wall motion abn, significant hypertensive response Lipid panel negative Cardiac Enzymes: Negative Telemetry monitoring reveals NSR 60s Continue aspirin and statin Pt initially seen by myself and was without complaint. After seen by attending complaints of overall not feeling right, sob with exertion after walking to bathroom Stat Dimer negative BP 139/75 after walking, O2 92% with quick rebound to 96% likely 2/2 to HTN - monitor closely resume olmesartan Follow up with cardiology and PCP as scheduled encouraged to keep BP/pulse log and to take to follow up appts Added amlodipine 2.5mg daily for better BP control (3) DM type 2 (diabetes mellitus, type 2): HbA1C:6.5 Hold oral agents Continue ISS while hospitalized Glucose 100 (4) Hypertension: Discontinued losartan due to intolerance Restarted on olmesartan Blood pressure 144/87, goal < 130/80 continue to monitor Also added Amlodipine 2.5 mg daily for better BP control (5) Hyperlipidemia: Continue statin (6) CALDERON (obstructive sleep apnea): not compliant with cpap having issues with mask need approp sleep medicine follow up (7) DVT prophylaxis: Lovenox SQ Code Status Full Code Disposition: Discharge home today if further work up negative Patient was seen and examined in collaboration with Dr. Avelar, please see addendum Total Time Total Time Spent Total Time Spent (In Minutes): 40 Total Time Includes: Examination of the Patient, Discharge Planning, Medication Reconciliation and Communication With Other Providers Discharge Plan Discharge Items Patient Disposition: Home - Self-Care Reason For Visit: Chest pain, High Blood Pressure Discharge Diagnosis: Chest Pain High Blood Pressure Condition on Discharge: Good Goals: Weight Loss Reduce blood pressure Continue with good diabetes control Activity: Resume your previous activity Lifting: Wait until after follow-up appointment Bathing: No limitations Sexual Activity: Wait until after follow-up appointment Exercise/Sports: None and Wait until after follow-up appointment Exercise Comment: Do not perform physical activity until cleared from your Primary Care DrAndrea Driving/Machine Use: Resume 1 day after discharge Weightbearing: Full weightbearing Non-emergency contact: Primary Care Provider and Lathe Turner Call non-emergency contact if: you have any medication questions, your symptoms worsen, your pain is not controlled, your pain is worsening, your pain is concerning for you and your rectal temperature is above 100.4 Follow-up/Referrals: Eric Marcano [Physician Programming Instructor] - 03/18/19 8:30 am Lucho Lang DO [Primary Care Provider] - 03/20/19 11:20 am Diet: Carb Consistent or DM2, Heart Healthy and Low Sodium (2gm) Addtl Attending Provider Instructions: MEDICATION CHANGES: Your losartan has been discontinued You will be started on olmesartan (similar to benicar) You were started on Amlodipine 2.5mg daily SUMMARY OF TEST RESULTS: He had an exercise stress echocardiogram which was negative Your blood pressure remained borderline high during admission Goal blood pressure use less than 130/80 Your losartan was discontinued, and you were restarted on your olmesartan PENDING TEST RESULTS: none RECOMMENDATIONS FOR FOLLOW-UP: Take all medications as prescribed Monitor your blood pressure at home at least twice daily Keep a log of your blood pressure and pulse readings to take with you to your follow-up primary care provider and cardiology appointment Goal blood pressure for you is less than 130/80 due to your history of diabetes Recommendation weight loss and hearth healthy/low sodium diet (Hand outs provided) Do not do physical exercise until better control of blood pressure and cleared from your primary care doctor OTHER INSTRUCTIONS: Seek medical attention if you have: * temperature above 101 * chest pain or trouble breathing * abdominal pain, nausea, vomiting * diarrhea, dark stools or bloody stools * any unanswered questions or concerns Call 911 if symptoms are severe. Please take good care of yourself. If your symptoms return or become more severe seek ED immediately Call if you have any questions or problems. You can reach a [facility] hospitalist on duty at [facility] 24 hours a day by calling [phone]. My pager number # is [phone]. Pending Studies at Discharge: No Stand-Alone Forms: Call Back Authorization, My [facility] Medications and DC Order Prescriptions: New amlodipine [Norvasc] 5 mg Tablet 2.5 mg PO QAM 30 Days Qty: 15 RF: 1 olmesartan [Benicar] 40 mg Tablet 40 mg PO QAM 30 Days Qty: 30 RF: 1 Continued glipizide 10 mg tablet 5 mg PO BID RF: 0 atorvastatin [Lipitor] 10 mg Tablet 10 mg PO DAILY RF: 0 aspirin 81 mg Tablet,Delayed Release (Dr/Ec) 81 mg PO DAILY RF: 0 Discontinued losartan 50 mg tablet 50 mg PO DAILY RF: 0 Discharge Orders: Discharge Order (Routine); Ordered 03/12/19 Ordered By: Aleyda Nguyen/Other Patient Handouts: DASH Plan Eat Heart Healthy Food, ED HTN Established Admission Data Admit Date/Time: 03/10/19 11:00 Attending Provider: Lito Avelar Admit Provider: Lito Avelar Primary Care Provider: Lucho Lang Other Providers: Chuckie Preston Other Interventions: Discharge Summary Assessment (RN) Last Done: 03/12/19 12:28
[2019-03-12 11:30] LABS: D Dimer 270 ug/L FEU (0-500)
--- NOTE | 2019-03-12 15:43 | Cardiology Progress Note ---
Date of Service March 12, 2019 Assessment & Plan (1) Chest tightness: Nonischemic exercise stress echocardiogram with profoundly hypertensive blood pressure response to exercise No further ischemic work-up is necessary at this time however strict blood pressure management will be required. (2) Hypertension: The patient will be restarted on his previous olmesartan 40 mg daily and will follow his blood pressure. Restarted and BP significantly improved ok to d/c to home from cardiac standpoint. We can then keep outpatient follow-up as already scheduled for further blood pressure management. Subjective Pt seen and examined, states that he feels ok today but still some sob. Denies cp, palpitations, lightheadedness or dizziness. tele reviewed: sinus rhythm without arrhythmia or significant ectopy. Review of Systems Review of Systems: All systems reviewed & are unremarkable except as noted in HPI & below Physical Exam Physical Exam: General: Awake, alert and oriented x 3. No acute distress. HEENT: Normocephalic, atraumatic. Pupils equal, round and reactive to light and accommodation. Extraocular muscles are intact. Anicteric sclera. Moist mucous membranes. Neck: No JVD. No bruit. Cardiovascular: Regular. Positive S-4. Normal S-1 and S-2. No S-3. No murmurs or rubs. Pulmonary: Clear to auscultation B/L. No rales, rhonchi or wheezing Abdomen: Bowel sounds x 4, soft. No rebound, guarding or tenderness. No organomegaly. Extremities: No clubbing, cyanosis or edema. +2 pedal pulses bilaterally. Skin: Warm and dry. Results & Data Vital Signs (Past 12 Hours) Vital Signs Temp Pulse Pulse Resp BP BP Pulse Ox 03/12/19 12:28 36.7 C 60 18 144/87 H 139/75 98 03/12/19 11:35 36.7 C 60 18 139/75 98 03/12/19 08:00 62 03/12/19 07:50 37.1 C 61 18 144/87 H 99 03/12/19 03:59 36.7 C 58 L 18 129/72 97
--- NOTE | 2019-03-22 15:16 | Coding Query ---
A supporting diagnosis is required for the test/procedure performed on this patient in order for us to be reimbursed by the patient's insurance. Please provide a supporting diagnosis for the following test/procedure listed below next to the test name along with your signature. *If there is no additional diagnosis for this patient that would support the following test/procedure please document that below next to the test/procedure. Test(s)/Procedure(s) that require a supporting diagnosis: ECHO COLOR FLOW DIAGNOSIS: chest pain ECHO DOPPLER COMPLETE DIAGNOSIS:chest pain PERFLUTREN LIPID MICRO DIAGNOSIS: chest pain, HTN Provider Signature: STACEY Lacey Date: 03/25/19 Thank you Leatha Frias [facility] Information Management Once completed, please kindly fax back to [phone] For questions please call [phone] [facility]
== END 2019-03-12 14:00 | disposition home or self-care (01) ==
LOC: 2S 08:12 → ED 08:12 → 2S 11:42

== ENCOUNTER 2019-03-25 04:46 | Inpatient (IN) ==
[2019-03-25] MEDS ORDERED: SODIUM CHLORIDE 0.9% 500 ML IV SCH ×2 (05:15→12:45)
[2019-03-25 05:22] LABS: Basophils # (auto) 0.04 K/uL (0-0.2); Basophils % (auto) 0.5 %; Eosinophils # (auto) 0.28 K/uL (0-0.5); Eosinophils % (auto) 3.7 %; Hematocrit (blood only) 42.9 % (42-52); Hemoglobin 14.3 g/dL (14.0-18.0); Immature Granulocytes # (auto) 0.02 K/uL (0.00-0.02); Immature Granulocytes % (auto) 0.3 %; Lymphocytes # (auto) 2.73 K/uL (1.2-3.4); Lymphocytes % (auto) 35.9 %; Mean Corpuscular Hemoglobin 31.6 pg (25-34); Mean Corpuscular Hgb Conc 33.3 g/dL (32-36); Mean Corpuscular Volume 94.9 fL (80-100); Mean Platelet Volume 10.2 fL (7.4-10.4); Monocytes # (auto) 0.61 K/uL (0.11-0.59); Neutrophils # (auto) 3.93 K/uL (1.4-6.5); Neutrophils % (auto) 51.6 %; Platelet Count 192 K/uL (130-400); RDW Coefficient of Variation 12.4 % (11.5-14.5); RDW Standard Deviation 43.2 fL (36.4-46.3); Red Blood Count 4.52 M/uL (4.7-6.1); White Blood Count 7.61 K/uL (4.8-10.8)
[2019-03-25 05:53] LABS: Alanine Aminotransferase 33 U/L (12-78); Albumin Level 3.8 gm/dl (3.4-5.0); Aspartate Aminotransferase 13 U/L (15-37); BUN Creatinine Ratio 12.7 (10-20); Blood Urea Nitrogen 13 mg/dl (7-18); Calcium 9.1 mg/dl (8.5-10.1); Carbon Dioxide 28 mmol/L (21-32); Chloride 105 mmol/L (98-107); D Dimer 410 ug/L FEU (0-500); Est GFR (African American) 88.4; Est GFR (Non-African American) 76.2; Glucose 114 mg/dl (70-99); Lipase 117 U/L (73-393); Partial Thromboplastin Time 26.8 Seconds (21.0-31.0); Potassium 3.8 mmol/L (3.5-5.1); Prothrombin Time 10.1 Seconds (9.0-12.0); Sodium 139 mmol/L (136-145)
[2019-03-25 06:07] LABS: Albumin Globulin Ratio 1.2 (0.9-2); Alkaline Phosphatase 82 U/L (45-117); Bilirubin,Total 0.5 mg/dl (0.2-1); Globulin 3.1 gm/dl (2.5-4.0); NT Pro B Type Natriuretic Pept 42 pg/ml (0-900); Total Protein 6.9 gm/dl (6.4-8.2); Troponin I < 0.015 ng/ml (0-0.045)
[2019-03-25 06:26] LABS: Appearance Urine Clear (Clear); Bilirubin Urine Negative (Negative); Blood Urine Negative (Negative); Color Urine Yellow; Glucose Urine UA Negative (Negative); Ketones Urine Negative (Negative); Leukocyte Esterase Urine Negative (Negative); Nitrite Urine Negative (Negative); Protein Urine Negative (Negative); Specific Gravity Urine 1.014 (1.000-1.030); Urobilinogen Urine Negative (Negative)
[2019-03-25 06:50] LABS: Amphetamines+Metham, Urine Neg (Neg); Barbiturates, Urine Neg (Neg); Benzodiazepine, Urine Neg (Neg); Cocaine, Urine Neg (Neg); MDMA (Ecstacy), Urine Neg (Neg); Methadone, Urine Neg (Neg); Opiate, Urine Neg (Neg); Phencyclidine, Urine Neg (Neg)
[2019-03-25 06:52] LABS: Lyme Ab IgG w/WB Rflx Negative (Negative); Lyme Ab IgM w/WB Rflx Negative (Negative)
--- NOTE | 2019-03-25 06:52 | Emergency Department Note ---
History of Present Illness General Chief complaint: Chest Pain Stated complaint: chest pain, shortness of breath Time Seen by Provider: 03/25/19 04:55 History of Present Illness This is a 68-year-old male presenting to the emergency department for evaluation of central chest pain and heaviness that began at 3:45 AM, roughly 2 hours prior to arrival. The patient has a history of diabetes, sleep apnea, and hype rtension. The patient was recently admitted to this facility 2 weeks ago where he had a nonischemic stress test. The patient has subsequently followed with [facility] cardiology, as well as his PCP. They are adjusting his blood pressure medications. The patient continues to have dyspnea on exertion, and is nonadherent to his CPAP machine. The patient does not have any recent travel history. He will intermittently have swelling of his legs, but this does seem to improve with his hydrochlorothiazide. The patient arrives via ambulance and did had nitroglycerin prehospital without any improvement of symptoms. He rates his current discomfort a 5/10. Home Medications Home Medications Medication Instructions Recorded Confirmed Type glipizide 5 mg PO BID 05/04/18 03/25/19 History amlodipine [Norvasc] 2.5 mg PO QAM 30 Days #15 tab 03/12/19 03/25/19 Rx olmesartan [Benicar] 40 mg PO QAM 30 Days #30 tab 03/12/19 03/25/19 Rx aspirin [Aspirin Low Dose] 81 mg PO DAILY 03/25/19 03/25/19 History hydrochlorothiazide 12.5 mg PO Q2D 03/25/19 03/25/19 History Allergies Allergy/AdvReac Type Severity Reaction Status Date / Time adhesive AdvReac Unknown RASH AND Verified 03/10/19 08:52 SKIN IRRITATION Past Med/Surg History Medical History History of colon cancer (Chronic) CALDERON (obstructive sleep apnea) (Chronic) DM type 2 (diabetes mellitus, type 2) (Chronic) Hyperlipidemia (Chronic) Benign prostatic hypertrophy with urinary frequency (Chronic) Hypertension (Chronic) Recurrent upper abdominal pain Surgical History History of partial colectomy (Chronic) History of total left knee replacement (Chronic) History of appendectomy (Chronic) History of appendectomy History of cholecystectomy History of partial colectomy History of total knee arthroplasty Family History Mother Breast cancer Brother Diabetes Sister Diabetes Social History Preferred Language: Chinese Communication Ability: Effective Repairer Sash And Door Required: No Beliefs That Will Affect Care: None Current Living Situation: Spouse Other Information That Helps Us Care for You: No Feels Safe at Home: Yes Safety Concerns: Feels Safe At This Time Smoking Status: Never smoker Second Hand Exposure: No ; Hx Alcohol Use: Yes Hx Substance Use: No Review of Systems A total of 10 systems reviewed and were otherwise negative Physical Exam Vital Signs Vital Signs - 24 hr 03/25/19 04:51 03/25/19 04:55 03/25/19 05:00 Temperature 36.7 C Temperature Source Oral Sepsis Recent Fever Within 48 Hours No Sepsis Action Taken by Nursing No Action Required Pulse Rate 74 63 61 Pulse Rate [Apical] Pulse Rate from SpO2 Sensor 60 Pulse Rhythm [Apical] Respiratory Rate 13 16 12 Respiratory Effort / Characteristics Non-Labored Respiratory Depth Normal Respiratory Pattern Blood Pressure 139/77 139/77 139/71 Blood Pressure [Right Arm] Blood Pressure Mean 97 97 93 Blood Pressure Mean [Right Arm] Pulse Oximetry 99 99 Oxygen Delivery Method Room Air Oxygen Flow Rate 03/25/19 05:03 03/25/19 05:29 03/25/19 05:30 Temperature Temperature Source Sepsis Recent Fever Within 48 Hours Sepsis Action Taken by Nursing Pulse Rate 64 Pulse Rate [Apical] Pulse Rate from SpO2 Sensor 65 Pulse Rhythm [Apical] Respiratory Rate 16 Respiratory Effort / Characteristics Respiratory Depth Respiratory Pattern Blood Pressure 112/71 Blood Pressure [Right Arm] Blood Pressure Mean 84 Blood Pressure Mean [Right Arm] Pulse Oximetry 100 100 99 Oxygen Delivery Method Room Air Room Air Oxygen Flow Rate 03/25/19 06:00 03/25/19 06:30 03/25/19 07:00 Temperature Temperature Source Sepsis Recent Fever Within 48 Hours Sepsis Action Taken by Nursing Pulse Rate 58 L 57 L Pulse Rate [Apical] 54 L Pulse Rate from SpO2 Sensor 57 L 58 L Pulse Rhythm [Apical] Regular Respiratory Rate 12 9 L 19 Respiratory Effort / Characteristics Spontaneous Respiratory Depth Normal Respiratory Pattern Regular Blood Pressure 124/71 122/66 Blood Pressure [Right Arm] 125/71 Blood Pressure Mean 88 84 Blood Pressure Mean [Right Arm] 89 Pulse Oximetry 97 96 99 Oxygen Delivery Method Nasal Cannula Oxygen Flow Rate 3 03/25/19 08:02 Temperature Temperature Source Sepsis Recent Fever Within 48 Hours Sepsis Action Taken by Nursing Pulse Rate Pulse Rate [Apical] 64 Pulse Rate from SpO2 Sensor Pulse Rhythm [Apical] Regular Respiratory Rate 19 Respiratory Effort / Characteristics Spontaneous Respiratory Depth Respiratory Pattern Regular Blood Pressure Blood Pressure [Right Arm] 117/67 Blood Pressure Mean Blood Pressure Mean [Right Arm] 83 Pulse Oximetry 99 Oxygen Delivery Method Nasal Cannula Oxygen Flow Rate 3 VITALS: Vitals are noted on the nurse's note and reviewed by myself. Vital signs stable. GENERAL: Well-developed, well-nourished, white male, who is in no acute distress and resting comfortably. Patient is cooperative with the examination. HEAD: Normocephalic atraumatic. NECK: Supple without nuchal rigidity. No lymphadenopathy. No thyromegaly. Cervical spine is nontender. HEART: Regular rate and rhythm without murmurs gallops or rubs. LUNGS: Clear to auscultation bilaterally without wheezes, rales or rhonchi. No retractions or accessory muscle use. ABDOMEN: Positive normal bowel sounds x 4. Soft, nontender, without masses or organomegaly. No guarding or rebound tenderness. MUSCULOSKELETAL: No muscle atrophy, erythema, or edema noted. Full range of motion in all extremities. NEURO: Patient was alert and oriented to person place and time. CN II through XII grossly intact. Course Administered Medications Aspirin (Ecotrin Ectab) 81 mg PO DAILY COUNTS INCLUDE 234 BEDS AT THE [facility] Stop: 04/24/19 09:29 Last Admin: 03/25/19 10:09 Dose: 81 mg Documented by: [id number] Insulin Aspart (Novolog Flexpen) 0 units SC ACHS COUNTS INCLUDE 234 BEDS AT THE [facility] Stop: 04/24/19 11:29 Last Admin: 03/25/19 20:21 Dose: Not Given Documented by: [id number] Cosigned by: [id number] Admin: 03/25/19 17:08 Dose: Not Given Documented by: [id number] Cosigned by: [id number] Admin: 03/25/19 13:03 Dose: Not Given Documented by: [id number] Cosigned by: [id number] Isosorbide Mononitrate (Imdur Extended Rel) 30 mg PO QAM [place] Stop: 04/24/19 12:29 Last Admin: 03/25/19 13:20 Dose: 30 mg Documented by: [id number] [facility] [place] Stop: 04/24/19 09:29 Last Admin: 03/25/19 10:09 Dose: 40 mg Documented by: [id number] Rosuvastatin Calcium (Crestor) [facility] [place] Stop: 04/24/19 12:29 Last Admin: 03/25/19 13:20 Dose: 5 mg Documented by: [id number] Discontinued Medications Amlodipine Besylate (Norvasc) 2.5 mg PO [facility] Stop: 04/24/19 09:29 Last Admin: 03/25/19 10:09 Dose: 2.5 mg Documented by: [id number] Fentanyl Citrate (Fentanyl Citrate) Confirm Administered Dose 100 mcg .ROUTE .STK-MED ONE Stop: 03/25/19 11:24 Last Increment: 03/25/19 12:26 Dose: 50 mcg Documented by: [id number] Heparin Sodium (Porcine) (Heparin Iv Bolus (Entry Level Marketing Assistant Use Only)) Confirm Administered Dose 10,000 units .ROUTE .STK-MED ONE Stop: 03/25/19 11:23 Last Admin: 03/25/19 12:26 Dose: 5,000 units Documented by: [id number] Heparin Sodium/Sodium Chloride (Heparin/Nss 1000 Unit/500ml Flush Bag) Confirm Administered Dose 3,000 units IV .STK-MED ONE Stop: 03/25/19 11:24 Last Admin: 03/25/19 11:54 Dose: 3,000 units Documented by: [id number] Sodium Chloride (Nss) 500 mls @ 125 mls/hr IV .Q4H COUNTS INCLUDE 234 BEDS AT THE [facility] Stop: 04/24/19 05:14 Last Infusion: 03/25/19 08:46 Dose: 0 mls/hr Documented by: [id number] Admin: 03/25/19 05:33 Dose: 125 mls/hr Documented by: [id number] Heparin Sodium/Dextrose (Heparin Sodium/Dextrose) 25,000 units in 500 mls @ 31 mls/hr IV .Q16H8M COUNTS INCLUDE 234 BEDS AT THE [facility]; Protocol Stop: 04/24/19 10:59 Last Admin: 03/25/19 19:09 Dose: Not Given Documented by: [id number] Heparin Sodium (Porcine) 7,000 (units/ Syringe) 7 mls @ 10 mls/min IV NOW ONE Stop: 03/25/19 11:16 Last Admin: 03/25/19 16:51 Dose: Not Given Documented by: [id number] Sodium Chloride (Nss) 500 mls @ 100 mls/hr IV .Q5H [facility]IG[facility] Stop: 03/25/19 17:44 Last Admin: 03/25/19 16:50 Dose: Not Given Documented by: [id number] Midazolam HCl (Versed) Confirm Administered Dose 2 mg .ROUTE .STK-MED ONE Stop: 03/25/19 11:24 Last Increment: 03/25/19 12:26 Dose: 1 mg Documented by: [id number] Nicardipine HCl (Cardene) Confirm Administered Dose 25 mg .ROUTE .STK-MED ONE Stop: 03/25/19 11:24 Last Admin: 03/25/19 11:54 Dose: 25 mg Documented by: [id number] Nitroglycerin (Nitro-Bid 2%) 1 inch EXT Q6H COUNTS INCLUDE 234 BEDS AT THE [facility] Stop: 04/24/19 10:59 Last Admin: 03/25/19 19:09 Dose: Not Given Documented by: [id number] Nitroglycerin/Dextrose (Nitroglycerin/D5w 100 Mcg/Ml 20ml Syringe) Confirm Administered Dose 2,000 mcg .ROUTE .STK-MED ONE Stop: 03/25/19 11:24 Last Admin: 03/25/19 11:54 Dose: 2,000 mcg Documented by: [id number] Medical Decision Making Differential Diagnosis Differential diagnosis includes, but is not limited to: Myocardial infarction, dysrhythmia, pericarditis, pneumothorax, aortic aneurysm/dissection, DVT/PE, anxiety, GERD, PUD, electrolyte imbalance, thyroid disorder, pneumonia, bronchitis, pancreatitis, and others Laboratory Data Result diagrams: 03/25/19 05:10 03/25/19 05:10 Lab Results 03/25/19 03/25/19 03/25/19 Range/Units 05:10 05:10 05:10 WBC 7.61 (4.8-10.8) K/uL RBC 4.52 L (4.7-6.1) M/uL Hgb 14.3 (14.0-18.0) g/dL Hct 42.9 (42-52) % MCV 94.9 (80-100) fL MCH 31.6 (25-34) pg MCHC 33.3 (32-36) g/dL RDW Std Deviation 43.2 (36.4-46.3) fL RDW Coeff of Damián 12.4 (11.5-14.5) % Plt Count 192 (130-400) K/uL MPV 10.2 (7.4-10.4) fL Immature Gran % (Auto) 0.3 % Neut % (Auto) 51.6 % Lymph % (Auto) 35.9 % Union % (Auto) 8.0 % Eos % (Auto) 3.7 % Baso % (Auto) 0.5 % Immature Gran # (Auto) 0.02 (0.00-0.02) K/uL Neut # (Auto) 3.93 (1.4-6.5) K/uL Lymph # (Auto) 2.73 (1.2-3.4) K/uL Union # (Auto) 0.61 H (0.11-0.59) K/uL Eos # (Auto) 0.28 (0-0.5) K/uL Baso # (Auto) 0.04 (0-0.2) K/uL PT 10.1 (9.0-12.0) Seconds INR 1.0 (0.9-1.1) APTT 26.8 (21.0-31.0) Seconds PTT Ratio 1.0 D-Dimer 410 (0-500) ug/L FEU Sodium 139 (136-145) mmol/L Potassium 3.8 (3.5-5.1) mmol/L Chloride 105 (98-107) mmol/L Carbon Dioxide 28 (21-32) mmol/L Anion Gap 6.0 (3-11) BUN 13 (7-18) mg/dl Creatinine 1.02 (0.6-1.4) mg/dl Est Cr Clr Drug Dosing 87.0 ml/min Est GFR ( Amer) 88.4 Est GFR (Non-Af Amer) 76.2 BUN/Creatinine Ratio 12.7 (10-20) Glucose 114 H (70-99) mg/dl Calcium 9.1 (8.5-10.1) mg/dl Magnesium 2.0 (1.8-2.4) mg/dl Total Bilirubin 0.5 (0.2-1) mg/dl AST 13 L (15-37) U/L ALT 33 (12-78) U/L Alkaline Phosphatase 82 (45-117) U/L Troponin I < 0.015 (0-0.045) ng/ml NT-Pro-B Natriuret Pep 42 (0-900) pg/ml Total Protein 6.9 (6.4-8.2) gm/dl Albumin 3.8 (3.4-5.0) gm/dl Globulin 3.1 (2.5-4.0) gm/dl Albumin/Globulin Ratio 1.2 (0.9-2) Lipase 117 (73-393) U/L TSH 1.360 (0.300-4.500) uIu/ml Urine Color Urine Appearance (Clear) Urine pH (4.5-7.5) Ur Specific [place] (1.000-1.030) Urine Protein (Negative) Urine Glucose (UA) (Negative) Urine Ketones (Negative) Urine Blood (Negative) Urine Nitrite (Negative) Urine Bilirubin (Negative) Urine Urobilinogen (Negative) Ur Leukocyte Esterase (Negative) Urine Opiates Screen (Neg) Ur Methadone, Qual (Neg) Urine Barbiturates (Neg) Ur Phencyclidine (PCP) (Neg) U Amphetamin/Meth Scrn (Neg) MDMA (Ecstasy) Screen (Neg) U Benzodiazepines Scrn (Neg) Ur Cocaine Metabolite (Neg) U Marijuana (THC) Screen (Neg) Ethyl Alcohol mg/dL (0-3) mg/dl Lyme Disease IgG Ab (Negative) Lyme Disease IgM Ab (Negative) 03/25/19 03/25/19 03/25/19 Range/Units 05:10 05:27 05:27 WBC (4.8-10.8) K/uL RBC (4.7-6.1) M/uL Hgb (14.0-18.0) g/dL Hct (42-52) % MCV (80-100) fL MCH (25-34) pg MCHC (32-36) g/dL RDW Std Deviation (36.4-46.3) fL RDW Coeff of Damián (11.5-14.5) % Plt Count (130-400) K/uL MPV (7.4-10.4) fL Immature Gran % (Auto) % Neut % (Auto) % Lymph % (Auto) % Union % (Auto) % Eos % (Auto) % Baso % (Auto) % Immature Gran # (Auto) (0.00-0.02) K/uL Neut # (Auto) (1.4-6.5) K/uL Lymph # (Auto) (1.2-3.4) K/uL Union # (Auto) (0.11-0.59) K/uL Eos # (Auto) (0-0.5) K/uL Baso # (Auto) (0-0.2) K/uL PT (9.0-12.0) Seconds INR (0.9-1.1) APTT (21.0-31.0) Seconds PTT Ratio D-Dimer Cancelled (0-500) ug/L FEU Sodium (136-145) mmol/L Potassium (3.5-5.1) mmol/L Chloride (98-107) mmol/L Carbon Dioxide (21-32) mmol/L Anion Gap (3-11) BUN (7-18) mg/dl Creatinine (0.6-1.4) mg/dl Est Cr Clr Drug Dosing ml/min Est GFR ( Amer) Est GFR (Non-Af Amer) BUN/Creatinine Ratio (10-20) Glucose (70-99) mg/dl Calcium (8.5-10.1) mg/dl Magnesium (1.8-2.4) mg/dl Total Bilirubin (0.2-1) mg/dl AST (15-37) U/L ALT (12-78) U/L Alkaline Phosphatase (45-117) U/L Troponin I (0-0.045) ng/ml NT-Pro-B Natriuret Pep (0-900) pg/ml Total Protein (6.4-8.2) gm/dl Albumin (3.4-5.0) gm/dl Globulin (2.5-4.0) gm/dl Albumin/Globulin Ratio (0.9-2) Lipase (73-393) U/L TSH (0.300-4.500) uIu/ml Urine Color Urine Appearance (Clear) Urine pH (4.5-7.5) Ur Specific [place] (1.000-1.030) Urine Protein (Negative) Urine Glucose (UA) (Negative) Urine Ketones (Negative) Urine Blood (Negative) Urine Nitrite (Negative) Urine Bilirubin (Negative) Urine Urobilinogen (Negative) Ur Leukocyte Esterase (Negative) Urine Opiates Screen (Neg) Ur Methadone, Qual (Neg) Urine Barbiturates (Neg) Ur Phencyclidine (PCP) (Neg) U Amphetamin/Meth Scrn (Neg) MDMA (Ecstasy) Screen (Neg) U Benzodiazepines Scrn (Neg) Ur Cocaine Metabolite (Neg) U Marijuana (THC) Screen (Neg) Ethyl Alcohol mg/dL < 3.0 (0-3) mg/dl Lyme Disease IgG Ab Negative (Negative) Lyme Disease IgM Ab Negative (Negative) 03/25/19 03/25/19 Range/Units 05:58 05:58 WBC (4.8-10.8) K/uL RBC (4.7-6.1) M/uL Hgb (14.0-18.0) g/dL Hct (42-52) % MCV (80-100) fL MCH (25-34) pg MCHC (32-36) g/dL RDW Std Deviation (36.4-46.3) fL RDW Coeff of Damián (11.5-14.5) % Plt Count (130-400) K/uL MPV (7.4-10.4) fL Immature Gran % (Auto) % Neut % (Auto) % Lymph % (Auto) % Union % (Auto) % Eos % (Auto) % Baso % (Auto) % Immature Gran # (Auto) (0.00-0.02) K/uL Neut # (Auto) (1.4-6.5) K/uL Lymph # (Auto) (1.2-3.4) K/uL Union # (Auto) (0.11-0.59) K/uL Eos # (Auto) (0-0.5) K/uL Baso # (Auto) (0-0.2) K/uL PT (9.0-12.0) Seconds INR (0.9-1.1) APTT (21.0-31.0) Seconds PTT Ratio D-Dimer (0-500) ug/L FEU Sodium (136-145) mmol/L Potassium (3.5-5.1) mmol/L Chloride (98-107) mmol/L Carbon Dioxide (21-32) mmol/L Anion Gap (3-11) BUN (7-18) mg/dl Creatinine (0.6-1.4) mg/dl Est Cr Clr Drug Dosing ml/min Est GFR ( Amer) Est GFR (Non-Af Amer) BUN/Creatinine Ratio (10-20) Glucose (70-99) mg/dl Calcium (8.5-10.1) mg/dl Magnesium (1.8-2.4) mg/dl Total Bilirubin (0.2-1) mg/dl AST (15-37) U/L ALT (12-78) U/L Alkaline Phosphatase (45-117) U/L Troponin I (0-0.045) ng/ml NT-Pro-B Natriuret Pep (0-900) pg/ml Total Protein (6.4-8.2) gm/dl Albumin (3.4-5.0) gm/dl Globulin (2.5-4.0) gm/dl Albumin/Globulin Ratio (0.9-2) Lipase (73-393) U/L TSH (0.300-4.500) uIu/ml Urine Color Yellow Urine Appearance Clear (Clear) Urine pH 7.0 (4.5-7.5) Ur Specific [place] 1.014 (1.000-1.030) Urine Protein Negative (Negative) Urine Glucose (UA) Negative (Negative) Urine Ketones Negative (Negative) Urine Blood Negative (Negative) Urine Nitrite Negative (Negative) Urine Bilirubin Negative (Negative) Urine Urobilinogen Negative (Negative) Ur Leukocyte Esterase Negative (Negative) Urine Opiates Screen Neg (Neg) Ur Methadone, Qual Neg (Neg) Urine Barbiturates Neg (Neg) Ur Phencyclidine (PCP) Neg (Neg) U Amphetamin/Meth Scrn Neg (Neg) MDMA (Ecstasy) Screen Neg (Neg) U Benzodiazepines Scrn Neg (Neg) Ur Cocaine Metabolite Neg (Neg) U Marijuana (THC) Screen Neg (Neg) Ethyl Alcohol mg/dL (0-3) mg/dl Lyme Disease IgG Ab (Negative) Lyme Disease IgM Ab (Negative) ECG Data Additional Comments: Sinus rhythm with 1st degree A-V block @64 bpm Otherwise normal ECG When compared with ECG of 12-MAR-2019 06:34, No significant change was found MDM Narrative Physical exam and history were performed. Nursing notes, EMR, and Medication List were personally reviewed. Patient appears to have chest discomfort that woke him from sleep. He describes it as a heaviness across his chest. IV access was established and labs were obtained. EKG was performed showing first-degree AV block but no obvious ischemic findings. Patient was hydrated gently with normal saline. The patient's blood work is as above and was reviewed. He does not have a significantly elevated white blood cell count, gross anemia, bandemia, or significant electrolyte imbalance. Troponin and d-dimer x1 are both negative. INR is 1.0 urine is without evidence of infection. Drug abuse screen is negative. Alcohol is undetected. The patient was reevaluated multiple times throughout the course of his stay. Overall I do have concern for the patient's well-being. He continues to have multiple symptoms that may represent unstable angina in a diabetic patient. He did have a normal stress test which was reassuring, however he has not undergone catheterization. Evidently he did discuss this with his cardiology team, and he feels this is likely the next step. [facility] agreed to evaluate the patient here in the department. Please see the [facility] dictation for further patient course, plan, and disposition. The chart was completed utilizing [employer] Speech Voice Recognition Software. Grammatical errors, random word insertions, pronoun errors, and incomplete sentences are an occasional consequence of this system due to software limitations, ambient noise, and hardware issues. Any formal questions or concerns about the content, text, or information contained within the body of this dictation should be directly addressed to the provider for clarification. . Impression & Plan Angina pectoris, unstable, Chest pain Discharge Plan Visit Data *Final* Discharge Date/Time: 03/25/19 08:41 Chief Complaint: Chest Pain Stated Complaint: chest pain, shortness of breath ED Provider: Meliza Smith ED Midlevel Provider: Trenton Verma Discharge Problem: Angina pectoris, unstable, Chest pain Patient Disposition: Admitted As Inpatient Discharge Instructions Interventions: ED Discharge Assessment Last Done: 03/25/19 08:41 Discharge Problem: Chest pain Qualifiers: Chest pain type: precordial pain Qualified Code(s): R07.2 - Precordial pain
--- NOTE | 2019-03-25 07:28 | Emergency Department Note ---
ED Visit Note I saw this patient in conjunction with Trenton Verma PA-C. I agree with his decision making and treatment plan. I had a lengthy conversation with the patient and his . The patient's description of the episodes of chest discomfort and shortness of breath seem to be exertion related. He had been evaluated by Eric Marcano and was told that if symptoms are not improving that he would need to undergo cardiac catheterization. The patient describes getting some improvement in symptoms after taking a diuretic but tonight the patient awoke from sleep extremely short of breath. Patient will be evaluated for further inpatient care .
--- NOTE | 2019-03-25 07:30 | XRay Report ---
XR chest 2V PA/lateral HISTORY: Atypical chest pain COMPARISON: Chest 03/10/2019. FINDINGS: The lungs are clear. Cardiac silhouette is normal in size. No pleural effusions. No pneumot horax. IMPRESSION: No acute process. Electronically signed by: Marek Evans M.D. 03/25/2019 7:29 AM
--- NOTE | 2019-03-25 08:57 | History & Physical Report ---
Date of Service March 25, 2019 Assessment & Plan (1) SOB (shortness of breath): (2) Chest tightness: This is a 68-year-old male who has significant PMH of T2DM, HTN, HLD, CALDERON noncompliant with CPAP, BPH, history of colon CA status post partial colectomy who presents to [facility] ED secondary to shortness of breath x2 hours. In ED patient remained hemodynamically stable. He was placed on O2 via NC for symptomatic relief. Initial EKG revealed NSR at 64 bpm, no ST or T wave abnormalities with first- degree AV block. Initial troponin WNL, d-dimer negative, BNP WNL. H&H stable at 14.3 and 42.9, WBC 7.61, platelet 192, CMP unremarkable, TSH 1.36. Urinalysis, drug tox screen, Lyme screen negative. Chest x-ray without acute ab normality. Admit to telemetry Consult cardiology Dr. Levi Cycle troponin and repeat ECG recent A1C and lipid panel completed during last admission remain NPO until seen and evaluated by cardiology ? if pt may benefit from dx cardiac cath Nocturnal O2 study on RA monitor for hypoxia Venous doppler b/l due to complaint of leg pain, evidence of varicosity (3) DM type 2 (diabetes mellitus, type 2): A1C 6.5 02/2019 hold glipizide novolog per protocol (4) Hypertension: blood pressure currently stable on admission continue amlodipine, omlesartan, HCTZ has been monitoring as outpt - states running 120s-130s recently started on HCTZ 12.5mg Q2D 1 week ago (5) Hyperlipidemia: has been off statin x 1 week at recommendation of cardiology due to heaviness in legs lipid panel 02/2019 - Trig 128, Total Chol 134, HDL 34, LDL 74 (6) CALDERON (obstructive sleep apnea): Has been intolerant to CPAP for past 1.5 months nocturnal o2 study tonight (7) Varicose vein of leg: Pt would benefit from vascular evaluation as outpt due to symptomatic varicosity obtain b/l doppler Pt wearing compression hose at recommendation of last admission which feels improves symptoms (8) DVT prophylaxis: History of Present Illness Chief Complaint: SOB x 2 hours. Primary Care Provider: Lucho Lang, This is a 68-year-old male who has significant PMH of T2DM, HTN, HLD, CALDERON no ncompliant with CPAP, BPH, history of colon CA status post partial colectomy who presents to [facility] ED secondary to shortness of breath x2 hours. Patient was sleeping when he was awoken secondary to shortness of breath and inability to catch his breath. He has never experienced this before. He woke up his and asked her to bring him to ED for evaluation. Symptoms last ed until he was in ED and received some oxygen via nasal cannula. At the time when shortness of breath came on he denied any chest pain, palpitations, diaphoresis, nausea, vomiting. Of significance patient was recently admitted and discharged at [facility] 03/10 to 03/12 secondary to chest pain and uncontrolled hypertension. During that visit he underwent a exercise stress test which was negative for inducible ischemia, but did reveal a hypertensive response. He was restarted on his home on omlesartan and amlodipine 2.5 mg was added to his regimen. He was discharged to follow-up in cardiology clinic. On 03/18 he is on Eric Krys. At that time he was continuing to complain of dyspnea on exertion, chest pressure, leg pain and swelling. His atorvastatin was placed on hold and he was started on HCTZ 12.5 mg every other day. After initiation of the HCTZ he felt better for a few days, and then started to feel unwell again. Over the past 2 weeks he continues to g et shortness of breath with little exertion including stairs and incline. Along with the shortness with with exertion he gets a chest pressure and heaviness that is nonradiating. Symptoms improved with rest last several minutes. He was out hunting 2 days ago whenever he had to walk very slow in order to stay asymptomatic. He continues to complain of bilateral leg pain right greater than left. He has been wearing compression stockings at home secondary to diagnosed varicosity vein during last admission. Feels this has been helping and his swelling has since improved. He does have a history of CALDERON in which he has been intolerant to CPAP. He has not been wearing his CPAP for the past 1.5 days. Denies any excessive fatigue. Currently denies any recent illness, any fever, chills, sweats, lightheadedness, dizziness, syncope, shortness of breath at rest, palpitations, hemoptysis, nausea, vomiting, abdominal pain, change in bowel or urinary habits. His appetite is otherwise been stable. No significant weight gain or loss. Allergies Allergy/AdvReac Type Severity Reaction Status Date / Time adhesive AdvReac Unknown RASH AND Verified 03/10/19 08:52 SKIN IRRITATION Home Medications Home Medications Medication Instructions Recorded Confirmed Type glipizide 5 mg PO BID 05/04/18 03/25/19 History amlodipine [Norvasc] 2.5 mg PO QAM 30 Days #15 tab 03/12/19 03/25/19 Rx olmesartan [Benicar] 40 mg PO QAM 30 Days #30 tab 03/12/19 03/25/19 Rx aspirin [Aspirin Low Dose] 81 mg PO DAILY 03/25/19 03/25/19 History hydrochlorothiazide 12.5 mg PO Q2D 03/25/19 03/25/19 History Past Med/Surg History Medical History History of colon cancer (Chronic) CALDERON (obstructive sleep apnea) (Chronic) DM type 2 (diabetes mellitus, type 2) (Chronic) Hyperlipidemia (Chronic) Benign prostatic hypertrophy with urinary frequency (Chronic) Hypertension (Chronic) Recurrent upper abdominal pain Surgical History History of partial colectomy (Chronic) History of total left knee replacement (Chronic) History of appendectomy (Chronic) History of appendectomy History of cholecystectomy History of partial colectomy History of total knee arthroplasty Family History Mother Breast cancer Brother Diabetes Sister Diabetes Social History Preferred Language: Italian Communication Ability: Effective Oncology Admin Required: No Beliefs That Will Affect Care: None Current Living Situation: Spouse Other Information That Helps Us Care for You: No Feels Safe at Home: Yes Safety Concerns: Feels Safe At This Time Smoking Status: Never smoker Second Hand Exposure: No ; Hx Alcohol Use: Yes Hx Substance Use: No Review of Systems Review of Systems: All systems reviewed & are unremarkable except as noted in HPI & below Physical Exam Physical Exam: Constitutional: WD/WN, obese male, appears pale, vitals as above, NAD, sitting up in bed, pleasant, conversing easily Head: Normocephalic, Atraumatic Eyes: PERRL, conjunctivae normal, anicteric sclerae ENMT: external ear and nose normal, oropharynx normal Neck: trachea midline, no thyromegaly normal visual inspection Respiratory: normal respiratory effort, lungs clear to auscultation, no wheeze, rales, rhonchi. Normal insp/exp effort, no accessory muscle use Cardiovascular: RRR, no murmur, no edema , significant RLE varicosity, Vessels: no JVD or carotid bruit Chest: normal inspection of chest Abdomen: protuberant abdomen, normal bowel sounds, soft, nontender, no hepatosplenomegaly Musculoskeletal: no cyanosis or clubbing, extremities motor strength 5/5 Skin: no rashes, warm and dry normal turgor Neurologic: PERRL, EOMI, accommodation nl, no face palsy, no dysarthria CN's II-XI intact bilaterally and moves all extremities Psychiatric: A+Ox3, euthymic affect Lymphatic: no cervical or axillary lymphadenopathy : deferred Results & Data Vital Signs (Past 12 Hours) Vital Signs Temp Pulse Pulse Resp BP BP Pulse Ox 03/25/19 08:41 62 19 131/73 100 03/25/19 08:02 64 19 117/67 99 03/25/19 07:00 54 L 19 125/71 99 03/25/19 06:30 57 L 9 L 122/66 96 03/25/19 06:00 58 L 12 124/71 97 03/25/19 05:30 64 16 112/71 99 03/25/19 05:29 100 03/25/19 05:03 100 03/25/19 05:00 61 12 139/71 99 03/25/19 04:55 36.7 C 63 16 139/77 99 03/25/19 04:51 74 13 139/77 Laboratory Results Short CBC 03/25/19 03/25/19 03/25/19 Range/Units 05:10 05:10 05:10 WBC 7.61 (4.8-10.8) K/uL Hgb 14.3 (14.0-18.0) g/dL Hct 42.9 (42-52) % Plt Count 192 (130-400) K/uL D-Dimer 410 Cancelled (0-500) ug/L FEU BMP 03/25/19 05:10 Sodium 139 Potassium 3.8 Chloride 105 Carbon Dioxide 28 BUN 13 Creatinine 1.02 Glucose 114 H Calcium 9.1 Cardiac Enzymes 03/25/19 Range/Units 05:10 Troponin I < 0.015 (0-0.045) ng/ml Liver Function 03/25/19 Range/Units 05:10 Total Bilirubin 0.5 (0.2-1) mg/dl AST 13 L (15-37) U/L ALT 33 (12-78) U/L Alkaline Phosphatase 82 (45-117) U/L Albumin 3.8 (3.4-5.0) gm/dl Urine 03/25/19 Range/Units 05:58 Urine Color Yellow Urine Appearance Clear (Clear) Urine pH 7.0 (4.5-7.5) Ur Specific Emmett 1.014 (1.000-1.030) Urine Protein Negative (Negative) Urine Glucose (UA) Negative (Negative) Diagnostic Findings CXR: IMPRESSION: No acute process. Previous Studies: February 2019 Zio Monitor: Patient had a min HR of 40 bpm, max HR of 130 bpm, and avg HR of 65 bpm. Predominant underlying rhythm was Sinus Rhythm. First Degree AV Block was present. 1 run of Supraventricular Tachycardia occurred lasting 10 beats with a max rate of 130 bpm (avg 122 bpm). Isolated SVEs were rare (<1.0%), and no SVE Couplets or SVE Triplets were present. Isolated VEs were rare (<1.0%), VE Couplets were rare (<1.0%), and no VE Triplets were present. March 11, 2019 Stress Echocardiogram Interpretation Summary ([facility], Dr. Preston): Nonischemic exercise stress echocardiogram. No rhythm is. Profoundly hypertensive response to exercise. Normal LV chamber size with mild concentric LVH. Normal LV systolic function, EF 55 to 60%. No segmental left ventricular wall motion abnormalities. Grade 1 diastolic dysfunction. Mild aortic valve sclerosis without significant stenosis. Mild aortic root dilatation. Normal dimension ascending aorta. Medications Administered Sodium Chloride (Nss) 500 mls @ 125 mls/hr IV .Q4H MIGUELITO Stop: 04/24/19 05:14 Last Infusion: 03/25/19 08:46 Dose: 0 mls/hr Documented by: [id number] Admin: 03/25/19 05:33 Dose: 125 mls/hr Documented by: [id number] ECG Rate (beats per minute): 64 Rhythm: normal sinus Code Status & VTE Plan Code Status FULL CODE VTE Prophylaxis Plan VTE Prophylaxis will be ordered: Yes Supervising Physician Co-Signing Physician Notes Patient is a 68-year-old male with history of hypertension, diabetes, obstructive sleep apnea and other problems presents with history of chest discomfort and shortness of breath on exertion. Patient recently had cardiac stress test which was negative. Despite medication adjustments patient continues to have shortness of breath which prompted him to come to the hospital for further evaluation. Please review HPI for complete details of presentation. Initial troponin, EKG showed no signs of ischemia. Given concern for unstable angina, IV heparin was started and patient had cardiac catheterization which revealed severe branch vessel disease, 30% diffuse proximal to mid LAD disease. On exam patient is moderately built and nourished, no apparent distress, normocephalic atraumatic, lungs are clear to auscultation, S1-S2, no murmur, abdomen soft nontender, grossly no focal neurological deficits, bilateral lower extremity--varicose veins, mild pretibial edema. Patient is admitted for management of unstable angina pectoris. S/P cardiac cath. Continue home aspirin. IV heparin discontinued. Started on rosuvastatin, isosorbide. Appreciate cardiology input. No beta-blockers for now secondary to bradycardia. I personally reviewed the record. Patient is interviewed and examined at bedside. Patient's care is coordinated with Aleyda Copeland PA-C. Please refer to the documentation above for details of patient's presentation and for discussion of other issues.
[2019-03-25] MEDS ORDERED: ONDANSETRON INJ 2 MG/ML 2 ML VIAL IV PRN (09:03)
[2019-03-25] MEDS ORDERED: GLUCAGON FOR INJ 1 MG VIAL SQ PRN (09:03)
[2019-03-25] MEDS ORDERED: ALUMINUM/MAGNESIUM SUSP 30 ML UDC PO PRN (09:03)
[2019-03-25] MEDS ORDERED: POLYETHYLENE (MIRALAX) 17 GM PACK PO PRN (09:03)
[2019-03-25] MEDS ORDERED: ACETAMINOPHEN 325 MG TAB PO PRN (09:03)
[2019-03-25] MEDS ORDERED: NITROGLYCERIN SL 0.4 MG/TAB TAB SL PRN (09:03)
[2019-03-25] MEDS ORDERED: CARBOHYDRATES FOR HYPOGLYCEMIA PO PRN (09:03)
[2019-03-25] MEDS ORDERED: GLUCOSE 40% GEL 15 GM TUBE PO PRN (09:03)
[2019-03-25] MEDS ORDERED: GLUCOSE 10 TABS/TUBE PO PRN (09:03)
[2019-03-25] MEDS ORDERED: DEXTROSE 50% 50 ML SYRINGE IV PRN (09:03)
[2019-03-25] MEDS ORDERED: MAGNESIUM HYDROXIDE SUSP 30 ML UDC PO PRN (09:03)
[2019-03-25] MEDS ORDERED: AMLODIPINE BESYLATE 5 MG TAB PO SCH (09:30)
[2019-03-25] MEDS: OLMESARTAN MEDOXOMIL 40 MG TAB PO SCH (10:09)
[2019-03-25] MEDS: ASPIRIN 81 MG ECTAB PO SCH (10:09)
--- NOTE | 2019-03-25 10:51 | Cardiology Consultation ---
Date of Consultation March 25, 2019 Assessment & Plan (1) Unstable angina pectoris: ASA. No beta lauren due to resting HR in 50's to low 60s. Start UF heparin. In addition to symptoms this am, had shortness of breath with exertion walking up an incline while hunting. Symptom free now. Will keep NPO until timing of catheterization determined. (2) Hypertension: Continue losartan, HCTZ, amlodipine. (3) Hyperlipidemia: Atorvastatin on hold due to muscle aches. Plan on trial of rosuvastatin. History of Present Illness Attending Physician: Lito Avelar MD History of Present Illness Winston Dao is a 68 year old male seen in cardiology consultation per the request of Brady Copeland PA-C of the [facility] for the evaluation of chest pressure. Patient asymptomatic at the time of my exam on 03/25/19 at 10:46 am. He presented with chest pressure that woke him from sleeping at 3 am this morning with associated shortness of breath. He noted the symptoms when he got up to urinate.His spouse called EMS. Symptoms resolved in route to the ED with SL nitroglycerin. He was recently hospitalized x 2 weeks for simiiar symptoms with non ischemic stress echocardiogram. Hypertensive BP response noted at the time of the stress test. He has no prior history of coronary heart disease. He is followed for DM2, HTN, dyslipidemia. Family History: Brother with recent cardiac cath, details unknown, did not have stents. Pt does not know his father's history. 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 , [employer] Allergies Allergy/AdvReac Type Severity Reaction Status Date / Time adhesive AdvReac Unknown RASH AND Verified 03/10/19 08:52 SKIN IRRITATION Home Medications Home Medications Medication Instructions Recorded Confirmed Type glipizide 5 mg PO BID 05/04/18 03/25/19 History amlodipine [Norvasc] 2.5 mg PO QAM 30 Days #15 tab 03/12/19 03/25/19 Rx olmesartan [Benicar] 40 mg PO QAM 30 Days #30 tab 03/12/19 03/25/19 Rx aspirin [Aspirin Low Dose] 81 mg PO DAILY 03/25/19 03/25/19 History hydrochlorothiazide 12.5 mg PO Q2D 03/25/19 03/25/19 History Patient History Medical History History of colon cancer (Chronic) CALDERON (obstructive sleep apnea) (Chronic) DM type 2 (diabetes mellitus, type 2) (Chronic) Hyperlipidemia (Chronic) Benign prostatic hypertrophy with urinary frequency (Chronic) Hypertension (Chronic) Recurrent upper abdominal pain Surgical History History of partial colectomy (Chronic) History of total left knee replacement (Chronic) History of appendectomy (Chronic) History of appendectomy History of cholecystectomy History of partial colectomy History of total knee arthroplasty Family History Mother Breast cancer Brother Diabetes Sister Diabetes Social History Preferred Language: Khmer Communication Ability: Effective Leg Man Required: No Beliefs That Will Affect Care: None Current Living Situation: Spouse Other Information That Helps Us Care for You: No Feels Safe at Home: Yes Safety Concerns: Feels Safe At This Time Smoking Status: Never smoker Second Hand Exposure: No ; Hx Alcohol Use: Yes Hx Substance Use: No Review of Systems Review of Systems: All systems reviewed & are unremarkable except as noted in HPI & below Physical Exam Physical Exam: Temp Pulse Resp BP Pulse Ox 36.9 C 60 21 145/79 H 97 03/25/19 09:03 03/25/19 09:03 03/25/19 09:03 03/25/19 09:03 03/25/19 09:03 Constitutional: WD/WN, vitals as above Respiratory: normal respiratory effort, lungs clear to auscultation Cardiovascular: RRR, no murmur, no edema Gastrointestinal (Abdomen): normal bowel sounds, soft, nontender, no hepatosplenomegaly Skin: no rashes, warm and dry Neurologic: PERRL, EOMI, accommodation nl, no face palsy, no dysarthria Results & Data Vital Signs (Past 12 Hours) Vital Signs Temp Pulse Pulse Resp BP BP Pulse Ox 03/25/19 09:03 36.9 C 60 21 145/79 H 97 03/25/19 08:41 62 19 131/73 100 03/25/19 08:02 64 19 117/67 99 03/25/19 07:00 54 L 19 125/71 99 03/25/19 06:30 57 L 9 L 122/66 96 03/25/19 06:00 58 L 12 124/71 97 03/25/19 05:30 64 16 112/71 99 03/25/19 05:29 100 03/25/19 05:03 100 03/25/19 05:00 61 12 139/71 99 03/25/19 04:55 36.7 C 63 16 139/77 99 03/25/19 04:51 74 13 139/77 Pulse Ox 03/25/19 09:03 97 03/25/19 08:41 03/25/19 08:02 03/25/19 07:00 03/25/19 06:30 03/25/19 06:00 03/25/19 05:30 03/25/19 05:29 03/25/19 05:03 03/25/19 05:00 03/25/19 04:55 03/25/19 04:51 Laboratory Results Cardiac Enzymes 03/25/19 Range/Units 05:10 AST 13 L (15-37) U/L Troponin I < 0.015 (0-0.045) ng/ml Coagulation 03/25/19 Range/Units 05:10 PT 10.1 (9.0-12.0) Seconds APTT 26.8 (21.0-31.0) Seconds CBC 03/25/19 Range/Units 05:10 WBC 7.61 (4.8-10.8) K/uL RBC 4.52 L (4.7-6.1) M/uL Hgb 14.3 (14.0-18.0) g/dL Hct 42.9 (42-52) % Plt Count 192 (130-400) K/uL Neut # (Auto) 3.93 (1.4-6.5) K/uL Lymph # (Auto) 2.73 (1.2-3.4) K/uL Bollinger # (Auto) 0.61 H (0.11-0.59) K/uL Eos # (Auto) 0.28 (0-0.5) K/uL Baso # (Auto) 0.04 (0-0.2) K/uL Comprehensive Metabolic Panel 03/25/19 Range/Units 05:10 Sodium 139 (136-145) mmol/L Potassium 3.8 (3.5-5.1) mmol/L Chloride 105 (98-107) mmol/L Carbon Dioxide 28 (21-32) mmol/L BUN 13 (7-18) mg/dl Creatinine 1.02 (0.6-1.4) mg/dl Glucose 114 H (70-99) mg/dl Calcium 9.1 (8.5-10.1) mg/dl AST 13 L (15-37) U/L ALT 33 (12-78) U/L Alkaline Phosphatase 82 (45-117) U/L Total Protein 6.9 (6.4-8.2) gm/dl Albumin 3.8 (3.4-5.0) gm/dl Intake and Output 03/24/19 03/25/19 03/25/19 22:59 06:59 14:59 Intake Total 500 / 500 Balance 500 / 500 Intake: IV 500 / 500 Nss 500 ml @ 125 mls/hr IV .Q4H 500 / 500 [facility] Rx#:[id number] Other: Weight 106.4 kg 106.4 kg Patient Weight 03/26/19 06:59 Weight 106.4 kg Diagnostic Findings EKG at 4:[address] changes.
[2019-03-25] MEDS ORDERED: HEPARIN SODIUM/DEXTROSE 25,000 UNITS/500 ML BAG IV SCH (11:00)
[2019-03-25] MEDS ORDERED: NITROGLYCERIN 2% OINTMENT 30GM TUBE EXT SCH (11:00)
[2019-03-25] MEDS ORDERED: HEPARIN IV BOLUS 7,000 UNITS in SYRINGE 0 ML IV ONE (11:15)
[2019-03-25] MEDS ORDERED: HEPARIN (PORCINE) 1000 UNIT/ML 10 ML (CATH LAB USE ONLY) ONE (11:22)
[2019-03-25] MEDS ORDERED: NITROGLYCERIN/D5W 100MCG/ML 20ML SYR ONE (11:23)
[2019-03-25] MEDS ORDERED: NiCARDipine HCL INJ 2.5 MG/ML 10 ML AMP ONE (11:23)
[2019-03-25] MEDS ORDERED: fentaNYL citrate 100 MCG/2 ML VIAL ONE (11:23)
[2019-03-25] MEDS ORDERED: MIDAZOLAM HCL 1 MG/ML 2ML VIAL ONE (11:23)
--- NOTE | 2019-03-25 12:32 | Post Anesthesia Assessment ---
Date of Service March 25, 2019 Post Sedation Assessment Vital Signs Temp Pulse Pulse Resp BP BP Pulse Ox 03/25/19 11:00 97.5 F L 62 16 136/73 98 03/25/19 09:03 98.4 F 60 21 145/79 H 97 03/25/19 08:41 62 19 131/73 100 03/25/19 08:02 64 19 117/67 99 03/25/19 07:00 54 L 19 125/71 99 03/25/19 06:30 57 L 9 L 122/66 96 03/25/19 06:00 58 L 12 124/71 97 03/25/19 05:30 64 16 112/71 99 03/25/19 05:29 100 03/25/19 05:03 100 03/25/19 05:00 61 12 139/71 99 03/25/19 04:55 98.1 F 63 16 139/77 99 03/25/19 04:51 74 13 139/77 Pulse Ox 03/25/19 11:00 03/25/19 09:03 97 03/25/19 08:41 03/25/19 08:02 03/25/19 07:00 03/25/19 06:30 03/25/19 06:00 03/25/19 05:30 03/25/19 05:29 03/25/19 05:03 03/25/19 05:00 03/25/19 04:55 03/25/19 04:51 Recovery Score Activity: Moves 4 extremities Respiration: Deep Breath/Cough Circulation: +/-20% PreAnes Value Consciousness: Fully Awake Oxygen Saturation: O2 needed for >90% Discharge Sedation Level of Care: Fast Track Phase II Post Sedation Plan On clinical assessment, the patient appears to have tolerated the sedation without complications. Patient is recovering as anticipated. Patient will continue to be monitored by nursing and may be discharged when sedation discharge criteria are met per below protocol. Upon Completions of procedure and additional 15 minutes continue every 5 minute vital signs and the P.A.R. score; then discharge to a Phase I or Fast Track to Phase II per the following guidelines: * Discharge Patient to appropriate Phase II area if PAR is 8 or greater or return to pre- procedure baseline. The post - procedure orders will be as directed. * If PAR score is less than 8 or not return to pre-procedure baseline then patient will follow Phase I monitoring till PAR is reached for Phase II. The Phase I may be done in procedure room or may call to secure a Phase I area. * If naloxone or flumazenil are used for reversal, hold in Phase I for continued monitoring from when last reversal dose was given for a minimum of 60 minutes or longer pending the nurse and/or physician discretion of patient condition before discharge to Phase II. Please call the Sedation Physician to re-evaluate and complete post-note for discharge to Phase II area. Do NOT discharge from procedure sedation or Phase 1 until post- sedation evaluation note is complete by procedure /sedation MD Sedation Discharge Instructions to be given to the patient at discharge to home.
--- NOTE | 2019-03-25 12:32 | Pre Anesthesia Assessment ---
Date of Service March 25, 2019 Pre Sedation Assessment Vital Signs Temp Pulse Pulse Resp BP BP Pulse Ox 03/25/19 11:00 97.5 F L 62 16 136/73 98 03/25/19 09:03 98.4 F 60 21 145/79 H 97 03/25/19 08:41 62 19 131/73 100 03/25/19 08:02 64 19 117/67 99 03/25/19 07:00 54 L 19 125/71 99 03/25/19 06:30 57 L 9 L 122/66 96 03/25/19 06:00 58 L 12 124/71 97 03/25/19 05:30 64 16 112/71 99 03/25/19 05:29 100 03/25/19 05:03 100 03/25/19 05:00 61 12 139/71 99 03/25/19 04:55 98.1 F 63 16 139/77 99 03/25/19 04:51 74 13 139/77 Pulse Ox 03/25/19 11:00 03/25/19 09:03 97 03/25/19 08:41 03/25/19 08:02 03/25/19 07:00 03/25/19 06:30 03/25/19 06:00 03/25/19 05:30 03/25/19 05:29 03/25/19 05:03 03/25/19 05:00 03/25/19 04:55 03/25/19 04:51 Cardiovascular RRR, no murmur, no edema Respiratory normal respiratory effort, lungs clear to auscultation Pre-Sedation Airway Assessment Smoking Status: Never smoker Hx Sleep Apnea: No Hx Difficult Intubation: No Short, Thick Neck: No Thyromental Distance: > or= 3.5 Finger Breadths Oral Cavity: + WNL Mallampati Class: III ASA: ASA3 Procedure Planning Contraindications for Sedation: none Current Medications Reviewed: Yes Notes The planned sedation has been discussed with the patient. Informed Consent was obtained. I have identified the patient, determined the appropriateness of sedation and have assessed the patient immediately prior to the procedure. All medicine(s) and interventions are by my order.
--- NOTE | 2019-03-25 12:40 | Cardiac Catheterization ---
[facility] Data: [employer] Cardiac Status Clinical evaluation leading to the procedure CAD Presenation: Unstable angina Anginal Classification: CCS IV Heart Failure: No Cardiogenic Shock within 24 Hours: No Cardiac Arrest within 24 Hours: No Imaging Studies Past 6 Months: Yes Stress Studies Past 6 Months: Yes Stress Echocardiogram: Yes - Negative Diagnostic Physicians Name: Travis Jimenez MD Status: Elective Closure Device Percutaneous Entry Location: Radial Closure Device: Radial Band Recommendations: Medical Therapy and/or Counseling Intraprocedure Events Significant Disection: No Perforation: No Cardiac Cath Procedure Full Procedure Date March 25, 2019 Pre-Procedure Diagnosis Pre-Procedure Diagnosis: Acute Coronary Syndrome AUC Score AUC Score: 7 Post-Procedure Diagnosis Post-Procedure Diagnosis: Severe CAD and Normal Intracardiac Pressures Procedure(s) Performed Procedure(s) Performed: Coronary Angiography and Left Heart Cath Flower Grader Travis Jimenez MD Certified Marine Mechanic(s) Gina Estimated Blood Loss Estimated Blood Loss: 5 Medication(s) Medication(s): Fentanyl, Heparin, Lidocaine 1%, Nicardipine, Nitroglycerin and Versed Summary of Findings Indication: Suspected ACS Access: 6 Fr right radial artery Catheters: [place], JL 3.5 Findings: LM -Short, no significant disease LAD -mildly calcified, 30% diffuse proximal to mid disease, distal luminal irregularities as wraps around apex. Moderate caliber second diagonal with 95% ostial stenosis. Circumflex -moderate caliber vessel, mid segment luminal irregularities. Gives off 2 moderate OM's without significant disease RCA -dominant, large caliber vessel, mid and distal segment luminal irregularities. LVEDP -3 Arterial Closure: TR band Summary: 1. Severe branch vessel disease -95% ostial moderate caliber second diagonal 2. 30% diffuse proximal to mid LAD 3. Normal intracardiac filling pressure Recommendations: Continue to maximize antianginal therapy Continued ASCVD risk factor modification If refractory symptoms in the future PCI to ostial diagonal could be considered. Hemodynamics Rest Ao:: 177/56/83 Final Ao: 120/58/85 LV: 108/3 Recommendations Recommendations: Medical Therapy and/or Counseling Specimens Specimens: None Radiation Exposure (mGy) 1574 Contrast (mls) 45 Fluids (cc crystalloids) Fluids (cc crystalloids): 50 Drains Drains: none Anesthesia moderate Procedural Complication(s) None Disposition PCU I attest to the content of the Intraoperative Record and any orders documented therein. Any exceptions are noted below.
[2019-03-25] MEDS: INSULIN ASPART 100 UNITS/ML 3 ML PEN SC SCH ×3 (13:03→20:21)
[2019-03-25] MEDS: ISOSORBIDE MONO EXTENDED REL 30 MG TABCR PO SCH (13:20)
[2019-03-25] MEDS: ROSUVASTATIN CALCIUM 5 MG TAB PO SCH (13:20)
--- NOTE | 2019-03-25 14:58 | Ultrasound Report ---
US venous doppler LE BI HISTORY: Pain. Edema. leg pain COMPARISON STUDY: None. FINDINGS: There is normal compressibility, flow, and augmentation within the bilateral lower extremit y deep venous systems. IMPRESSION: No DVT within the right or left lower extremity. The above report was generated using voice recognition software. It may contain grammatical, syntax or spelling errors. Electronically signed by: Eric Cassidy M.D. 03/25/2019 2:57 PM
[2019-03-26 07:17] LABS: Hematocrit (blood only) 39.8 % (42-52); Hemoglobin 13.9 g/dL (14.0-18.0); Mean Corpuscular Hemoglobin 32.3 pg (25-34); Mean Corpuscular Hgb Conc 34.9 g/dL (32-36); Mean Corpuscular Volume 92.6 fL (80-100); Platelet Count 182 K/uL (130-400); RDW Coefficient of Variation 12.5 % (11.5-14.5); RDW Standard Deviation 42.5 fL (36.4-46.3); White Blood Count 8.12 K/uL (4.8-10.8)
[2019-03-26 07:54] LABS: BUN Creatinine Ratio 19.9 (10-20); Calcium 8.6 mg/dl (8.5-10.1); Creatinine Clr Calc Pharmacy 97.2 ml/min; Est GFR (African American) 101.4; Est GFR (Non-African American) 87.5; Potassium 3.9 mmol/L (3.5-5.1)
[2019-03-26] MEDS: ASPIRIN 81 MG ECTAB PO SCH (08:22)
[2019-03-26] MEDS: AMLODIPINE BESYLATE 5 MG TAB PO SCH ×3 (08:22→10:59)
[2019-03-26] MEDS: OLMESARTAN MEDOXOMIL 40 MG TAB PO SCH (08:22)
[2019-03-26] MEDS: INSULIN ASPART 100 UNITS/ML 3 ML PEN SC SCH ×4 (08:22→20:19)
[2019-03-26] MEDS: ISOSORBIDE MONO EXTENDED REL 30 MG TABCR PO SCH (08:22)
[2019-03-26] MEDS: ROSUVASTATIN CALCIUM 5 MG TAB PO SCH (08:23)
[2019-03-26] MEDS ORDERED: hydroCHLOROthiazide 25 MG TAB PO SCH (09:00)
--- NOTE | 2019-03-26 11:09 | Cardiology Progress Note ---
Date of Service March 26, 2019 Assessment & Plan (1) Unstable angina pectoris: EKG this morning reveals sinus rhythm in the range of 60 bpm with first- degree AV block, ND interval 230 ms, no significant repolarization abnormalities. Cardiac catheterization performed 03/25/2019 revealed mild luminal irregularities and a 95% ostial stenosis at the second diagonal branch of the LAD. The anatomical position of this stenosis and a relatively small diagonal branch was felt to be technically complex, and after discussion with interventional cardiology we agreed that intervention on this vessel would be high risk in terms of causing plaque shift into the otherwise patent LAD, and therefore a trial of optimal medication therapy is going to be pursued. Continue aspirin. He is not a candidate for beta-blockers as his baseline heart rate is in the 50 to 60 bpm range. Long-acting nitrate therapy, isosorbide mononitrate was initiated yesterday, and his amlodipine 2.5 mg was increased to 5 mg for both blood pressure and antianginal effects. At this time, I am going to discontinue his Benicar 40 mg. I anticipate reintroducing this medication at a lower dose perhaps 20 mg after we determine the blood pressure effects of the isosorbide mononitrate and the amlodipine. (2) Hypertension: Benicar on hold. Hydrochlorothiazide discontinued. Continue indoor plus amlodipine, amlodipine dose increased to 2 5 mg from 2.5 mg. (3) Hyperlipidemia: Patient had experienced nonspecific muscle ache symptoms with atorvastatin, will proceed with trial of rosuvastatin, started yesterday Disposition: Patient had recurrent symptoms while in the bathroom this morning, he needs to remain in the hospital for ongoing medication therapy. Subjective Chief complaint: Follow-up exertional shortness of breath, chest pressure Subjective: Patient tolerated cardiac catheterization well yesterday. Telemetry this morning reveals stable sinus rhythm in the range of 50 to 70 bpm. While getting up and washing up in the bathroom this morning he noted shortness of breath and recurrence of his chest discomfort. Review of Systems Review of Systems: All systems reviewed & are unremarkable except as noted in HPI & below Physical Exam Physical Exam: Temp Pulse Resp BP Pulse Ox 36.9 C 72 19 111/67 97 03/26/19 10:48 03/26/19 10:48 03/26/19 10:48 03/26/19 10:48 03/26/19 10:48 Constitutional: WD/WN, vitals as above Respiratory: normal respiratory effort, lungs clear to auscultation Cardiovascular: RRR, no murmur, no edema Gastrointestinal (Abdomen): normal bowel sounds, soft, nontender, no hepatosplenomegaly Neurologic: PERRL, EOMI, accommodation nl, no face palsy, no dysarthria Results & Data Vital Signs (Past 12 Hours) Vital Signs Temp Pulse Pulse Resp BP Pulse Ox Pulse Ox 03/26/19 10:48 36.9 C 72 19 111/67 97 03/26/19 07:31 36.6 C 60 128/69 98 03/26/19 05:29 63 98 03/26/19 03:38 67 97 03/26/19 02:43 36.7 C 72 106/67 96 03/26/19 00:00 03/25/19 23:22 36.8 C 84 19 108/64 88 L Pulse Ox 03/26/19 10:48 03/26/19 07:31 03/26/19 05:29 03/26/19 03:38 03/26/19 02:43 03/26/19 00:00 94 03/25/19 23:22 Laboratory Results Cardiac Enzymes 03/25/19 03/25/19 Range/Units 11:16 17:03 Troponin I < 0.015 < 0.015 (0-0.045) ng/ml CBC 03/26/19 Range/Units 06:50 WBC 8.12 (4.8-10.8) K/uL RBC 4.30 L (4.7-6.1) M/uL Hgb 13.9 L (14.0-18.0) g/dL Hct 39.8 L (42-52) % Plt Count 182 (130-400) K/uL Comprehensive Metabolic Panel 03/26/19 Range/Units 06:50 Sodium 138 (136-145) mmol/L Potassium 3.9 (3.5-5.1) mmol/L Chloride 105 (98-107) mmol/L Carbon Dioxide 27 (21-32) mmol/L BUN 18 (7-18) mg/dl Creatinine 0.91 (0.6-1.4) mg/dl Glucose 127 H (70-99) mg/dl Calcium 8.6 (8.5-10.1) mg/dl Intake and Output 03/25/19 03/26/19 03/26/19 22:59 06:59 14:59 Intake Total 200 / 940 Output Total 500 / 1050 Balance -500 / -110 200 / -110 Intake: Oral 200 / 440 Output: Urine 500 / 1050 Other: Weight 105.7 kg
--- NOTE | 2019-03-26 17:35 | Hospitalist Progress Note ---
Date of Service March 26, 2019 Assessment & Plan (1) SOB (shortness of breath): (2) Chest tightness: Patient is a 68 yr male with H/O DM II, HTN, HLD, CALDERON noncompliant with CPAP, BPH, history of colon CA status post partial colectomy who presents to [facility] ED secondary to exertional shortness of breath and chest discomfort x2 hours. Unstable angina pectoris S/P Cardiac Cath: 95% ostial stenosis in the second diagonal branch of LAD; 30% diffuse proximal to mid LAD stenosis; normal intracardiac filling pressure Cardiac enzymes negative TSH: Normal Drug tox screen, Lyme screen negative. Did not tolerate Lipitor as per patient Continue aspirin, nitrate, amlodipine, rosuvastatin No beta-lauren secondary to baseline bradycardia Appreciate cardiology input Monitoring telemetry (3) DM type 2 (diabetes mellitus, type 2): A1C 6.5 02/2019 hold glipizide novolog per protocol (4) Hypertension: Pressure relatively low Continue amlodipine Benicar held Hydrochlorothiazide discontinued Monitor (5) Hyperlipidemia: has been off statin x 1 week at recommendation of cardiology due to heaviness in legs Started on rosuvastatin at lower dose (6) CALDERON (obstructive sleep apnea): Has been intolerant to CPAP for past 1.5 months Nocturnal o2 study: Qualifies for 2 L of supplemental oxygen at bedtime (7) Varicose vein of leg: Venous Doppler: No DVT within the right or left lower extremity. Advised to follow-up with vascular surgery as outpatient Continue compression hose (8) DVT prophylaxis: Lovenox SQ Code Status: Full Code Disposition Expect to discharge home when stable Subjective Patient is seen and examined at bedside Complains of shortness of breath, mild chest discomfort with minimal exertion No other complaints Review of Systems Review of Systems: All systems reviewed & are unremarkable except as noted in HPI & below Physical Exam Physical Exam: Physical Exam: Vitals signs as noted above General Appearance:Moderately built and nourished, no apparent distress Head: normocephalic, Atraumatic Eyes: normal inspection, EOMI Neck: supple, Trachea midline Respiratory/Chest: Normal breath sounds, CTA Cardiovascular: S1, S2, No murmur Abdomen/GI:Soft, Non tender, Bowel sounds present Extremities/Musculoskelatal:normal inspection, B/L LE varicose veins, Mild pretibial edema Neurologic/Psych:AAOX3, grossly no focal neurological deficits Skin: normal color, warm Results & Data Vital Signs (Past 12 Hours) Vital Signs Temp Pulse Pulse Resp BP Pulse Ox Pulse Ox 03/26/19 15:52 36.7 C 64 20 100/61 98 03/26/19 10:48 36.9 C 72 19 111/67 97 03/26/19 07:31 36.6 C 60 128/69 98 03/26/19 05:29 63 98 Laboratory Results Short CBC 03/26/19 Range/Units 06:50 WBC 8.12 (4.8-10.8) K/uL Hgb 13.9 L (14.0-18.0) g/dL Hct 39.8 L (42-52) % Plt Count 182 (130-400) K/uL BMP 03/26/19 06:50 Sodium 138 Potassium 3.9 Chloride 105 Carbon Dioxide 27 BUN 18 Creatinine 0.91 Glucose 127 H Calcium 8.6 Cardiac Enzymes 03/25/19 Range/Units 17:03 Troponin I < 0.015 (0-0.045) ng/ml
[2019-03-27 07:51] LABS: BUN Creatinine Ratio 18.2 (10-20); Calcium 9.3 mg/dl (8.5-10.1); Creatinine Clr Calc Pharmacy 89.2 ml/min; Est GFR (African American) 91.6; Magnesium 2.2 mg/dl (1.8-2.4); Potassium 3.9 mmol/L (3.5-5.1)
[2019-03-27 08:21] LABS: Estimated Average Glucose 134 mg/dl; Hemoglobin A1C 6.3 % (4.5-5.6)
[2019-03-27] MEDS: ASPIRIN 81 MG ECTAB PO SCH (08:40)
[2019-03-27] MEDS: ROSUVASTATIN CALCIUM 5 MG TAB PO SCH (08:40)
[2019-03-27] MEDS: AMLODIPINE BESYLATE 5 MG TAB PO SCH (08:40)
[2019-03-27] MEDS: ISOSORBIDE MONO EXTENDED REL 30 MG TABCR PO SCH (08:40)
[2019-03-27] MEDS: INSULIN ASPART 100 UNITS/ML 3 ML PEN SC SCH ×2 (08:40→12:25)
[2019-03-27] MEDS ORDERED: ENOXAPARIN INJ 40 MG/0.4 ML SYR SQ SCH (09:00)
--- NOTE | 2019-03-27 13:02 | Hospitalist Progress Note ---
Date of Service March 27, 2019 Assessment & Plan (1) SOB (shortness of breath): (2) Chest tightness: Patient is a 68 yr male with H/O DM II, HTN, HLD, CALDERON noncompliant with CPAP, BPH, history of colon CA status post partial colectomy who presents to [facility] ED secondary to exertional shortness of breath and chest discomfort x2 hours. Unstable angina pectoris S/P Cardiac Cath: 95% ostial stenosis in the second diagonal branch of LAD; 30% diffuse proximal to mid LAD stenosis; normal intracardiac filling pressure Cardiac enzymes negative TSH: Normal Drug tox screen, Lyme screen negative. Did not tolerate Lipitor as per patient Continue aspirin, nitrate, amlodipine, rosuvastatin No beta-lauren secondary to baseline bradycardia Appreciate cardiology input Tolerating statin Needs follow up with Cardiology Upon discharge (3) DM type 2 (diabetes mellitus, type 2): A1C 6.3 hold glipizide novolog per protocol while hospitalized (4) Hypertension: Pressure relatively low Continue amlodipine Benicar held Hydrochlorothiazide discontinued Monitor (5) Hyperlipidemia: has been off statin x 1 week at recommendation of cardiology due to heaviness in legs Started on rosuvastatin at lower dose (6) CALDERON (obstructive sleep apnea): Has been intolerant to CPAP for past 1.5 months Nocturnal o2 study: Qualifies for 2 L of supplemental oxygen at bedtime Continue oxygen 2 liters at bedtime (7) Varicose vein of leg: Venous Doppler: No DVT within the right or left lower extremity. Advised to follow-up with vascular surgery as outpatient Continue compression hose (8) DVT prophylaxis: Lovenox SQ Code Status: Full Code Disposition Expect to discharge home when stable Subjective Patient is seen and examined at bedside No significant change from yesterday symptomatically per patient Still has some dyspnea/chest discomfort with minimal exertion No other complaints Review of Systems Review of Systems: All systems reviewed & are unremarkable except as noted in HPI & below Physical Exam Physical Exam: Physical Exam: Vitals signs as noted above General Appearance:Moderately built and nourished, no apparent distress Head: normocephalic, Atraumatic Eyes: normal inspection, EOMI Neck: supple, Trachea midline Respiratory/Chest: Normal breath sounds, CTA Cardiovascular: S1, S2, No murmur Abdomen/GI:Soft, Non tender, Bowel sounds present Extremities/Musculoskelatal:normal inspection, B/L LE varicose veins, Mild pretibial edema Neurologic/Psych:AAOX3, grossly no focal neurological deficits Skin: normal color, warm Results & Data Vital Signs (Past 12 Hours) Vital Signs Temp Pulse Pulse Resp BP BP Pulse Ox 03/27/19 11:39 36.4 C L 65 16 108/66 98 03/27/19 07:49 65 03/27/19 07:30 36.5 C 65 20 131/72 97 03/27/19 03:51 36.5 C 57 L 18 122/61 98 Laboratory Results [facility] 03/27/19 07:15 Sodium 137 Potassium 3.9 Chloride 105 Carbon Dioxide 28 BUN 18 Creatinine 0.99 Glucose 120 H Calcium 9.3
--- NOTE | 2019-03-27 14:16 | Cardiology Progress Note ---
Date of Service March 27, 2019 Assessment & Plan (1) Angina pectoris, unstable: Patient with cardiac catheterization findings of mild luminal irregularities, 95% ostial stenosis of the second diagonal branch of the LAD. This was a technically complex lesion, and medical management has therefore been recommended with concerns that PCI could potentially put the LAD in jeopardy. Continue medication therapy with aspirin, Imdur, amlodipine. (2) Hypertension: Blood pressure well controlled on current regimen of isosorbide mononitrate extended release 30 mg which is a new medication, amlodipine 5 mg, which was increased compared to 2.5 mg. The patient's Benicar 40 mg has been on hold as this is his hydrochlorthiazide. At present, given most recent systolic blood pressure reading of 108/66, I recommend discharge on just the Imdur plus amlodipine 5 mg daily. If blood pressure above goal on outpatient follow-up, could consider either adding back the hydrochlorothiazide, with the Benicar at a lower dose, perhaps 20 mg or 10 mg as compared to 40 mg. (3) Hyperlipidemia: Atorvastatin recently been discontinued as an outpatient due to side effect of "heavy legs ". This is been replaced with rosuvastatin 5 mg. Disposition: Patient stable from a cardiac perspective for discharge with the medication changes as above. He already has a tentative follow-up with our office on 04/09/2019. Subjective Chief complaint: Follow-up exertional shortness of breath and chest pressure Subjective: Patient feeling well. He did have a brief episode of shortness of breath when he was first getting up to clean up this morning, but since he is walked in the hallway in his felt no limitation. Telemetry reveals sinus rhythm in the 60 bpm range. Review of Systems Review of Systems: All systems reviewed & are unremarkable except as noted in HPI & below Physical Exam Physical Exam: Temp Pulse Resp BP Pulse Ox 36.4 C L 65 16 108/66 98 03/27/19 11:39 03/27/19 11:39 03/27/19 11:39 03/27/19 11:39 03/27/19 11:39 Constitutional: WD/WN, vitals as above Respiratory: normal respiratory effort, lungs clear to auscultation Cardiovascular: RRR, no murmur, no edema Gastrointestinal (Abdomen): normal bowel sounds, soft, nontender, no hepatospl enomegaly Skin: no rashes, warm and dry Neurologic: PERRL, EOMI, accommodation nl, no face palsy, no dysarthria Results & Data Vital Signs (Past 12 Hours) Vital Signs Temp Pulse Pulse Resp BP BP Pulse Ox 03/27/19 11:39 36.4 C L 65 16 108/66 98 03/27/19 07:49 65 03/27/19 07:30 36.5 C 65 20 131/72 97 03/27/19 03:51 36.5 C 57 L 18 122/61 98 Laboratory Results Comprehensive Metabolic Panel 03/27/19 Range/Units 07:15 Sodium 137 (136-145) mmol/L Potassium 3.9 (3.5-5.1) mmol/L Chloride 105 (98-107) mmol/L Carbon Dioxide 28 (21-32) mmol/L BUN 18 (7-18) mg/dl Creatinine 0.99 (0.6-1.4) mg/dl Glucose 120 H (70-99) mg/dl Calcium 9.3 (8.5-10.1) mg/dl Intake and Output 03/26/19 03/27/19 03/27/19 22:59 06:59 14:59 Intake Total 250 / 815 240 / 240 Output Total 700 / 2175 400 / 2175 Balance -450 / -1360 -400 / -1360 240 / 240 Intake: Oral 250 / 815 240 / 240 Output: Urine 700 / 2175 400 / 2175 Other: Weight 105.2 kg Patient Weight 03/28/19 06:59 Weight 105.2 kg Diagnostic Findings EKG performed today 03/27/2019 at 6:50 AM reveals normal sinus rhythm at 63 bpm first-degree AV block, ID interval 242 ms, otherwise normal EKG. Medications Administered Current Inpatient Medications Acetaminophen (Tylenol) 650 mg PO Q4H PRN PRN Reason: Pain or Fever Stop: 04/24/19 09:02 Last Admin: 03/26/19 14:34 Dose: 650 mg Documented by: Al Hydrox/Mg Hydrox/Simethicone (Maalox) 15 ml PO Q4H PRN PRN Reason: Dyspepsia Stop: 04/24/19 09:02 Amlodipine Besylate (Norvasc) [facility] [place] Stop: 04/25/19 08:59 Last Admin: 03/27/19 08:40 Dose: 5 mg Documented by: Aspirin (Ecotrin Ectab) 81 mg PO DAILY [facility] Stop: 04/24/19 09:29 Last Admin: 03/27/19 08:40 Dose: 81 mg Documented by: Dextrose (Dextrose 50%) 25 - 50 ml IV UD PRN; Protocol PRN Reason: Hypoglycemia Protocol Stop: 04/24/19 09:02 Enoxaparin Sodium (Lovenox) 40 mg SQ QAM [facility] Stop: 04/26/19 08:59 Last Admin: 03/27/19 08:41 Dose: 40 mg Documented by: Glucagon (Glucagen) 1 mg SQ UD PRN; Protocol PRN Reason: Hypoglycemia Protocol Stop: 04/24/19 09:02 Glucose (Glucose 40%) 15 - 30 gm PO UD PRN; Protocol PRN Reason: Hypoglycemia Protocol Stop: 04/24/19 09:02 Glucose (Dex4 Glucose) 4 - 8 tabs PO UD PRN; Protocol PRN Reason: Hypoglycemia Protocol Stop: 04/24/19 09:02 Insulin Aspart (Novolog Flexpen) 0 units SC ACHS [facility] Stop: 04/24/19 11:29 Last Admin: 03/27/19 12:25 Dose: Not Given Documented by: Isosorbide Mononitrate (Imdur Extended Rel) [facility] [place] Stop: 04/24/19 12:29 Last Admin: 03/27/19 08:40 Dose: 30 mg Documented by: Magnesium Hydroxide (Milk Of Magnesia) 30 ml PO Q12H PRN PRN Reason: Constipation Stop: 04/24/19 09:02 Miscellaneous (Carbohydrates For Hypoglycemia) 15 - 30 gm PO UD PRN PRN Reason: Hypoglycemia Treatment Stop: 04/24/19 09:02 Nitroglycerin (Nitrostat) 0.4 mg SL PRN PRN PRN Reason: Chest Pain Stop: 04/24/19 09:02 Ondansetron HCl (Zofran) 4 mg IV Q6H PRN PRN Reason: Nausea Stop: 04/24/19 09:02 Polyethylene Glycol (Miralax Powder Packet) 17 gm PO DAILY PRN PRN Reason: Constipation Stop: 04/24/19 09:02 Rosuvastatin Calcium (Crestor) 5 mg PO QAM [facility] Stop: 04/24/19 12:29 Last Admin: 03/27/19 08:40 Dose: 5 mg Documented by:
--- NOTE | 2019-03-27 14:57 | Discharge Summary ---
Date of Service March 27, 2019 Admission HPI Per Admitting Provider This is a 68-year-old male who has significant PMH of T2DM, HTN, HLD, CALDERON noncompliant with CPAP, BPH, history of colon CA status post partial colectomy who presents to [facility] ED secondary to shortness of breath x2 hours. Patient was sleeping when he was awoken secondary to shortness of breath and inability to catch his breath. He has never experienced this before. He woke up his and asked her to bring him to ED for evaluation. Symptoms lasted until he was in ED and received some oxygen via nasal cannula. At the time when shortness of breath came on he denied any chest pain, palpitations, diaphoresis, nausea, vomiting. Of significance patient was recently admitted and discharged at [facility] 03/10 to 03/12 secondary to chest pain and uncontrolled hypertension. During that visit he underwent a exercise stress test which was negative for inducible ischemia, but did reveal a hypertensive response. He was restarted on his home on omlesartan and amlodipi ne 2.5 mg was added to his regimen. He was discharged to follow-up in cardiology clinic. On 03/18 he is on Eric Krys. At that time he was continuing to complain of dyspnea on exertion, chest pressure, leg pain and swelling. His atorvastatin was placed on hold and he was started on HCTZ 12.5 mg every other day. After initiation of the HCTZ he felt better for a few days, and then started to feel unwell again. Over the past 2 weeks he continues to get shortness of breath with little exertion including stairs and incline. Along with the shortness with with exertion he gets a chest pressure and heaviness that is nonradiating. Symptoms improved with rest last several minutes. He was out hunting 2 days ago whenever he had to walk very slow in order to stay asymptomatic. He continues to complain of bilateral leg pain right greater than left. He has been wearing compression stockings at home secondary to diagnosed varicosity vein during last admission. Feels this has been helping and his swelling has since improved. He does have a history of CALDERON in which he has been intolerant to CPAP. He has not been wearing his CPAP for the past 1.5 days. Denies any excessive fatigue. Currently denies any recent illness, any fever, chills, sweats, lightheadedness, dizziness, syncope, shortness of breath at rest, palpitations, hemoptysis, nausea, vomiting, abdominal pain, change in bowel or urinary habits. His appetite is otherwise been stable. No significant weight gain or loss. Admission Exam Per Admitting Provider Constitutional: WD/WN, obese male, appears pale, vitals as above, NAD, sitting up in bed, pleasant, conversing easily Head: Normocephalic, Atraumatic Eyes: PERRL, conjunctivae normal, anicteric sclerae ENMT: external ear and nose normal, oropharynx normal Neck: trachea midline, no thyromegaly normal visual inspection Respiratory: normal respiratory effort, lungs clear to auscultation, no wheeze, rales, rhonchi. Normal insp/exp effort, no accessory muscle use Cardiovascular: RRR, no murmur, no edema , significant RLE varicosity, Vessels: no JVD or carotid bruit Chest: normal inspection of chest Abdomen: protuberant abdomen, normal bowel sounds, soft, nontender, no hepatosplenomegaly Musculoskeletal: no cyanosis or clubbing, extremities motor strength 5/5 Skin: no rashes, warm and dry normal turgor Neurologic: PERRL, EOMI, accommodation nl, no face palsy, no dysarthria CN's II-XI intact bilaterally and moves all extremities Psychiatric: A+Ox3, euthymic affect Lymphatic: no cervical or axillary lymphadenopathy : deferred Principal Diagnosis Unstable angina pectoris Nocturnal hypoxia Discharge Data Allergies Allergy/AdvReac Type Severity Reaction Status Date / Time adhesive AdvReac Unknown RASH AND Verified 03/10/19 08:52 SKIN IRRITATION Consultations 03/25/19 06:44 ED Decision to Admit Stat 03/25/19 08:52 Consult Cardiology Routine Procedures Performed Operation Date: 03/25/19 11:30 Actual Procedures p Cath, Left with Cors and Vent - Scott Jimenez MD s Cineradiography w/Routine Exam - Scott Jimenez MD Operation Date: 03/25/19 11:30 <No data on this case meets the specified criteria> Venous Doppler: No DVT within the right or left lower extremity. CXR: No acute process. Cardiac Cath Summary: 1. Severe branch vessel disease -95% ostial moderate caliber second diagonal 2. 30% diffuse proximal to mid LAD 3. Normal intracardiac filling pressure Recommendations: Continue to maximize antianginal therapy Continued ASCVD risk factor modification If refractory symptoms in the future PCI to ostial diagonal could be considered. Ordered Studies 03/25/19 08:52 US venous doppler LE BI Urgent 03/25/19 11:27 CL Cath Imgs for PACS use only Routine Hospital Course (1) SOB (shortness of breath): (2) Chest tightness: Patient is a 68 yr male with H/O DM II, HTN, HLD, CALDERON noncompliant with CPAP, BPH, history of colon CA status post partial colectomy who presents to [facility] ED secondary to exertional shortness of breath and chest discomfort x2 hours. Unstable angina pectoris S/P Cardiac Cath: 95% ostial stenosis in the second diagonal branch of LAD; 30% diffuse proximal to mid LAD stenosis; normal intracardiac filling pressure Cardiac enzymes negative TSH: Normal Drug tox screen, Lyme screen negative. Did not tolerate Lipitor as per patient Continue aspirin, nitrate, amlodipine, rosuvastatin No beta-lauren secondary to baseline bradycardia Appreciate cardiology input Tolerating statin Needs follow up with Cardiology Upon discharge (3) DM type 2 (diabetes mellitus, type 2): A1C 6.3 hold glipizide novolog per protocol while hospitalized (4) Hypertension: Pressure relatively low Continue amlodipine Benicar held Hydrochlorothiazide discontinued Monitor (5) Hyperlipidemia: has been off statin x 1 week at recommendation of cardiology due to heaviness in legs Started on rosuvastatin at lower dose (6) CALDERON (obstructive sleep apnea): Has been intolerant to CPAP for past 1.5 months Nocturnal o2 study: Qualifies for 2 L of supplemental oxygen at bedtime Continue oxygen 2 liters at bedtime (7) Varicose vein of leg: Venous Doppler: No DVT within the right or left lower extremity. Advised to follow-up with vascular surgery as outpatient Continue compression hose (8) DVT prophylaxis: Lovenox SQ Code Status: Full Code Disposition Expect to discharge home when stable Total Time Total Time Spent Total Time Spent (In Minutes): 40 minutes Total Time Includes: Examination of the Patient, Discharge Planning, Medication Reconciliation, Communication With Other Providers and Other Discharge Plan Discharge Items Patient Disposition: Home - Self-Care Reason For Visit: CHEST PAIN Discharge Diagnosis: Unstable Angina Pectoris Nocturnal Hypoxemia Activity: Per Instructions section Exercise/Sports: Gradually increase as tolerated Non-emergency contact: Primary Care Provider and President Call non-emergency contact if: you have any medication questions, your symptoms worsen, your pain is not controlled, your pain is worsening, your pain is unusual for you, your pain is concerning for you and you have a fever Follow-up/Referrals: Lucho Lang, [Primary Care Provider] - Diet: Carb Consistent or DM2 and Heart Healthy Addtl Attending Provider Instructions: Follow up with your PCP on 2018 at 11:00 AM Follow up with your President /Eric Marcano PA-C on Apr 09, 2019 at 3:15 pm Medication Changes: You are started on isosorbide mononitrate 30 mg daily You are started on rosuvastatin 5 mg daily Your amlodipine dose is increased from 2.5 to 5 mg daily Your Benicar (Olmesartan) and hydrochlorothiazide are discontinued Use 2 Liters of Oxygen via nasal cannula at bedtime as needed Get repeat sleep study as outpatient as advised Seek immediate medical attention if your symptoms reoccur or worsen Home Care: * Take your medications exactly as directed. Don't skip doses. * Remember that recovery after a heart attack takes time. Plan to rest for at lease 4-8 weeks while you recover. Then return to normal activity when your doctor says it's okay. * Ask your doctor about joining a heart rehabilitation program. * Tell your doctor if you are feeling depressed. Feelings of sadness are common after a heart attack, but it is important that you speak to someone if you are feeling overwhelmed by these feelings. * If you are having chest pain, call 911 for an ambulance. Do NOT drive yourself to the hospital. * Ask your family members to learn CPR. * Learn to take your own blood pressure and pulse. Keep a record of your results. Ask your doctor when you should seek emergency medical attention. He or she will tell you which blood pressure reading is dangerous. Lifestyle Changes: * Maintain a healthy weight. Get help to lose any extra pounds. * Cut back on salt. * Limit canned, dried, packaged, and fast foods. * Don't add salt to your food. * Season foods with herbs instead of salt when you cook. * Break the smoking habit. Enroll in a stop-smoking program to improve your chances of success. * Limit fatty foods. * Ask your doctor about having your lipid levels checked regularly. * Build up your activity according to your doctor's recommendation. * Ask your doctor when it's okay to resume sexual activity. * Tell your doctor about any erectile dysfunction (ED) medication you are taking. Some ED medications are not safe if you take certain heart medications. * Try to manage stress. Follow Up: It is important for you to keep your follow up appointments with your medical provider. Pending Studies at Discharge: No Stand-Alone Forms: Call Back Authorization, [facility], Smoking Cessation Medications and DC Order Prescriptions: New isosorbide mononitrate 30 mg Tablet Extended Release 24 Hr 30 mg PO QAM Qty: 30 RF: 1 amlodipine [Norvasc] 5 mg Tablet 5 mg PO QAM 30 Days Qty: 30 RF: 1 rosuvastatin [Crestor] 5 mg Tablet 5 mg PO QAM 30 Days Qty: 30 RF: 1 Continued glipizide 10 mg tablet 5 mg PO BID RF: 0 aspirin [Aspirin Low Dose] 81 mg Tablet,Delayed Release (Dr/Ec) 81 mg PO DAILY RF: 0 Discontinued amlodipine [Norvasc] 5 mg Tablet 2.5 mg PO QAM 30 Days Qty: 15 RF: 1 olmesartan [Benicar] 40 mg Tablet 40 mg PO QAM 30 Days Qty: 30 RF: 1 hydrochlorothiazide 12.5 mg Capsule 12.5 mg PO Q2D RF: 0 Discharge Orders: Discharge Order (Routine); Ordered 03/27/19 Ordered By: Lito Avelar Admission Data Admit Date/Time: 03/26/19 16:43 Attending Provider: Lito Avelar Admit Provider: Lito Avelar Primary Care Provider: Lucho Lang Other Providers: Trenton Levi ; Olivier Og
[2019-03-27 15:45] VITALS: BP 115/68; PULSE 63; TEMP 97.9; O2SAT 97
--- NOTE | 2019-03-30 11:27 | Communication Note ---
Date of Service: March 30, 2019 Pt called pager 03/30/19 approx 10:45. Stating since discharge after he takes his morning medications he gets a severe headache, neck stiffness and neck pain x 2-3 hours before going away. Has tried APAP with mild relief. New medications at discharge include imdur 30mg daily, crestor, and amlodipine increased to 5mg daily. blood pressure since discharge has been adequate < 130/80 even during headache episodes. Denies recurrent chest pain, dizziness, lightheaded, syncope, palps, nausesa. 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 Benjamin. Recommends holding imdur for now and monitor for recurring chest pain. He has f/u with PCP on 04/03 along with cardiology follow up on 04/09/19.
== END 2019-03-27 15:49 | disposition home or self-care (01) | DRG 287 ==
LOC: ED 04:46 → 2E 04:46 → 2S 21:59

== ENCOUNTER 2020-07-20 20:34 | Observation (INO) ==
--- NOTE | 2020-07-20 23:01 | Surgery Consultation ---
Date of Consultation July 20, 2020 Assessment & Plan (1) Hematoma: The bulge in patient's incisional area that prompted his ER visit most likely represents a hematoma. As the area has improved with application of pressure and ice and the patient is hemodynamically stable there is no clear indication for surgical drainage. Despite this fact the patient is having consider amount of pain and we will therefore place the patient in the hospital under observation status with the following measures in place: We will provide analgesics We will provide antiemetics We will continue to provide ice for pain control as well as compression to the affected area We will repeat a CBC tomorrow morning to ensure patient does not develop a leukocytosis or have a significant drop in his hemoglobin and hematocrit We will hold the patient's aspirin for the present time We will make the patient n.p.o. until seen by [facility] general surgery tomorrow morning We will notify the [facility] general surgery service tomorrow and leave any plans for possible hematoma evacuation to their discretion We will use SCDs for DVT prevention, no chemical means will be used due to concern for postoperative hematoma Patient be a level 1 full code History of Present Illness Reason for Consultation: Hematoma History of Present Illness This is a 69-year-old male who underwent a lipoma excision by Dr. Snell of [facility] surgery on July 17. Patient says that he was doing well until earlier this evening he went to bear down while having a bowel movement and felt a pop in the area of his surgical incision in the right upper abdomen. Patient subsequently noted a large bulge in the region of his lipoma excision and therefore presented to the emergency department. In the emergency department a CT scan of the abdomen pelvis was performed where patient was noted to have a 7.5 x 5.6 x 7.3 cm lesion with surrounding inflammation and a small amount of gas felt most likely to represent a postoperative hematoma. Since arrival to the emergency department the treating staff has applied ice packs to the affected area as well as direct pressure. In the emergency department at the time of my exam the patient noted that the bulge had decreased in size with these measures. Patient denies any fevers, shakes, or chills. He does note some associated pain in the area of bulging. At the time of my exam the patient was in no distress but did report a considerable amount of pain. After discussion with the emergency room physician it was decided to check a CBC. Patient was noted to have a normal white blood cell count and his hemoglobin and hematocrit were 13.6 and 41 respectively. His platelet count was noted to be within normal range. As the patient was having considerable pain the treating emergency room physician opted to attempt to treat his pain with plans to discharge the patient. Patient was checked on multiple times by the emergency room physician as well as myself and despite measures to control the patient's pain and the fact that he had to travel considerable distance to get to the hospital he did not feel comfortable with discharge and we are therefore asked to admit the patient to the hospital. Allergies Allergy/AdvReac Type Severity Reaction Status Date / Time adhesive AdvReac Unknown RASH AND Verified 07/20/20 21:38 SKIN IRRITATION Home Medications Medication Instructions Recorded Confirmed Type aspirin [Aspirin Low Dose] 81 mg PO DAILY 03/25/19 07/20/20 History amlodipine 5 mg PO DAILY 10/13/19 07/20/20 History rosuvastatin 5 mg PO DAILY 10/13/19 07/20/20 History multivitamin [Multiple Vitamin] 1 tab PO DAILY 07/20/20 07/20/20 History Patient History Medical History (Updated 07/20/20 @ 22:58 by John Horton PA-C) Benign prostatic hypertrophy with urinary frequency DM type 2 (diabetes mellitus, type 2) History of colon cancer Hyperlipidemia Hypertension CALDERON (obstructive sleep apnea) Recurrent upper abdominal pain Surgical History History of appendectomy History of appendectomy History of cholecystectomy History of partial colectomy History of partial colectomy History of total knee arthroplasty History of total left knee replacement Family History Mother Breast cancer Brother Diabetes Sister Diabetes Social History Smoking Status: Never smoker Second Hand Exposure: No; Hx Alcohol Use: Yes Hx Substance Use: No Preferred Language: Mongolian Communication Ability: Effective 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 The incision is intact with interrupted sutures. A small amount of surrounding erythema along the suture line. There is no drainage from the incision. There is a noticeable bulge in the area surrounding the incision. The area is somewhat tender to palpation. The bulging area extends approximately 2 to 3 cm from the incision in all directions. Patient was revisited approximately 30 to 45 minutes after my initial encounter. The previously noted bulging area had not increased in size in this time. Constitutional: well developed and well nourished Results & Data ([facility]) Vital Signs (Past 12 Hours) Vital Signs Temp Pulse Pulse Resp BP BP Pulse Ox 07/20/20 21:55 66 20 178/82 H 98 07/20/20 21:10 64 20 161/82 H 98 07/20/20 20:40 37 C 65 20 154/96 H 100 PG Care Time/CCT Total # of Minutes Spent Total Time Spent with Patient: Total time spent is greater than 50% in coordination of care (as documented) at patient's floor/unit and/or counseling patient: Coding Level of Care Code 31960 Inpt Consult Level 3 Diagnoses Hematoma T14.8XXA
[2020-07-20 23:02] LABS: Basophils # (auto) 0.03 K/uL (0-0.2); Basophils % (auto) 0.4 %; Eosinophils # (auto) 0.22 K/uL (0-0.5); Eosinophils % (auto) 2.9 %; Hemoglobin 13.6 g/dL (14.0-18.0); Immature Granulocytes # (auto) 0.02 K/uL (0.00-0.02); Immature Granulocytes % (auto) 0.3 %; Lymphocytes # (auto) 2.66 K/uL (1.2-3.4); Lymphocytes % (auto) 35.3 %; Mean Corpuscular Hemoglobin 31.7 pg (25-34); Mean Corpuscular Hgb Conc 33.2 g/dL (32-36); Mean Corpuscular Volume 95.6 fL (80-100); Mean Platelet Volume 10.9 fL (7.4-10.4); Monocytes # (auto) 0.77 K/uL (0.11-0.59); Monocytes % (auto) 10.2 %; Neutrophils # (auto) 3.83 K/uL (1.4-6.5); Neutrophils % (auto) 50.9 %; Platelet Count 212 K/uL (130-400); RDW Coefficient of Variation 12.5 % (11.5-14.5); RDW Standard Deviation 43.4 fL (36.4-46.3); Red Blood Count 4.29 M/uL (4.7-6.1); White Blood Count 7.53 K/uL (4.8-10.8)
[2020-07-20] MEDS ORDERED: ONDANSETRON INJ 2 MG/ML 2 ML VIAL IV STA (23:10)
[2020-07-20] MEDS ORDERED: MoRPHine SULFATE 4 MG/ML 1 ML CARP\\VIAL IV STA ×2 (23:10→23:59)
--- NOTE | 2020-07-21 02:17 | Emergency Department Note ---
Impression & Plan Postoperative hematoma ED Provider Note INFORMANT: Patient ED PROVIDER(S): Oniel Catherine MD CHIEF COMPLAINT: Abdominal pain PLAN: Disposition: Condition: Admitted Outpatient prescription management: none Referral: None MEDICAL DECISION MAKING: Patient presented complaining of swelling in the area of an incision from his recent lipoma resection. Operative report was reviewed. Surgery appeared to go on uneventfully. The patient states he was doing well until he pared down this evening. This seemed to be most consistent with a hematoma. Hernia was also considered. He underwent CT imaging which revealed what appeared to be a large hematoma. The patient had a consult placed with general surgery. He was evaluated by Hunter Almeida PA-C under the direction of Dr. Virgilio Almeida. The patient initially declined analgesia. The patient then wanted something for pain. Surgery recommended checking his hemoglobin. There was no significant change from prior. The patient was still feeling very uncomfortable. Surgery recommended outpatient follow-up. He was reassessed. He did not feel comfortable going home due to the level of pain. There did not appear to be any progression of his hematoma based upon initial evaluation. He was given a second dose of morphine. I did contact surgery again. The patient was evaluated by pain in the ER and admitted. Triage Nursing notes reviewed and agree them. Prior medical records reviewed regarding recent surgery Vital Signs: reviewed and remarkable for no significant abnormalities Differential diagnosis: Postoperative a hemorrhagic, hernia, foreign body, infection, soft tissue injury, abscess, as well as other pathologies. Diagnostics interpreted by me: Imaging studies: CT scan of the abdomen pelvis revealed a hyperdense lesion measuring 7.5 x 5.6 x 7.3 cm with surrounding inflammation and small amount of gas. Findings represent a postoperative hematoma however superimposed infection cannot be excluded. Consultation(s): General surgery HPI: The patient is a 69 year old male who presents to the Emergency Room with complaints of abdominal pain. This started abruptly this evening and is associated with swelling. The patient had a lipoma removed from his upper right anterior abdominal wall [address] Snell at the [facility] outpatient clinic. He stated he was straining for bowel movement this evening and then felt pressure in the wound. The sutures did not open up. No fluid was expressed. He had significant pain and presented to the ER.. The patient also notes the following associated symptoms, swelling and tenderness in the epigastrium. The patient has taken no medication for relieving factors. Current pain is rated as 6/10. Pt denies LOC, headache, fevers, chills, diaphoresis, visual changes, neck pain, chest pain, breathing difficulties, nausea, vomiting, back pain, melena, hematochezia, urinary symptoms, numbness, weakness, lymphadenopathy, rash, or other complaints. ROS: See above HPI for pertinent positives & negatives. A total of 10 systems reviewed and were otherwise negative. PAST MEDICAL HISTORY:See Below , hypertension CAD PAST SURGICAL HISTORY:See Below, FAMILY HISTORY:See Below SOCIAL HISTORY:See Below, HOME MEDICATIONS:See Below ALLERGIES:See Below VITALS:See Below PHYSICAL EXAMINATION: GENERAL: Awake, alert, uncomfortable-appearing, in no distress HENT: Normocephalic, atraumatic. Oropharynx unremarkable. EYES: Normal conjunctiva. Sclera non-icteric. NECK: Inspection normal. Non-tender. Supple. No nuchal rigidity. FROM. No masses. RESPIRATORY: Clear to auscultation. No wheezes. No rales. Normal respiratory effort. CARDIAC: Normal rate. Normal rhythm. No murmurs. No rubs. Extremities warm and well perfused. Pulses equal. No JVD. GI: Soft, non-distended. No intra-abdominal tenderness noted. There is an inc ision in the right upper abdomen near the xiphoid level and the sutures are intact. No active bleeding noted. Some mild surrounding ecchymosis. Very firm and swollen. No rebound or guarding. No masses. RECTAL: Deferred. MUSCULOSKELETAL: Atraumatic. Chest examination reveals no tenderness. The back is symmetrical on inspection without obvious abnormality. There is no CVA tenderness to palpation. No joint edema. LOWER EXTREMITIES: Calves are equal size bilaterally and non-tender. No edema. No discoloration. NEURO: Normal sensorium. No sensory or motor deficits noted. SKIN: No rash or jaundice noted. Oniel Catherine MD Past Med/Surg History Medical History (Updated 07/21/20 @ 02:09 by Oniel Catherine MD) Benign prostatic hypertrophy with urinary frequency DM type 2 (diabetes mellitus, type 2) History of colon cancer Hyperlipidemia Hypertension CALDERON (obstructive sleep apnea) Recurrent upper abdominal pain Surgical History History of appendectomy History of appendectomy History of cholecystectomy History of partial colectomy History of partial colectomy History of total knee arthroplasty History of total left knee replacement Family History Mother Breast cancer Brother Diabetes Sister Diabetes Social History Smoking Status: Never smoker Second Hand Exposure: No; Hx Alcohol Use: Yes Hx Substance Use: No Preferred Language: Kiswahili Communication Ability: Effective Licensed Embalmer Supervisor Required: No Beliefs That Will Affect Care: None Current Living Situation: Spouse Feels Safe at Home: Yes Assistive Devices: Glasses Allergies Allergies Allergy/AdvReac Type Severity Reaction Status Date / Time adhesive AdvReac Unknown RASH AND Verified 07/20/20 21:38 SKIN IRRITATION Home Meds Home Medications Medication Instructions Recorded Confirmed aspirin [Aspirin Low Dose] 81 mg PO DAILY 03/25/19 07/20/20 amlodipine 5 mg PO DAILY 10/13/19 07/20/20 rosuvastatin 5 mg PO DAILY 10/13/19 07/20/20 multivitamin [Multiple Vitamin] 1 tab PO DAILY 07/20/20 07/20/20 Results & Data (ED) Vital Signs Vital Signs - 24 hr 07/20/20 20:40 07/20/20 21:10 07/20/20 21:55 Temperature 37 C Temperature Source Oral Pulse Rate 65 Pulse Rate [Bilateral Apical] 64 66 Respiratory Rate 20 20 20 Respiratory Effort / Characteristics Non-Labored Respiratory Depth Normal Blood Pressure 154/96 H Blood Pressure [Left Arm] 161/82 H 178/82 H Blood Pressure Mean 115 Blood Pressure Mean [Left Arm] 108 114 Pulse Oximetry 100 98 98 Oxygen Delivery Method Room Air Room Air Room Air Sepsis Recent Fever Within 48 Hours No Sepsis New/Unexplained Change in Mental Status N/A Sepsis Action Taken by Nursing No Action Required 07/20/20 23:03 07/20/20 23:30 07/21/20 00:27 Temperature Temperature Source Pulse Rate Pulse Rate [Bilateral Apical] 68 63 64 Respiratory Rate 20 20 20 Respiratory Effort / Characteristics Respiratory Depth Blood Pressure Blood Pressure [Left Arm] 157/95 H 167/90 H 152/77 H Blood Pressure Mean Blood Pressure Mean [Left Arm] 115 115 102 Pulse Oximetry 99 97 99 Oxygen Delivery Method Room Air Room Air Room Air Sepsis Recent Fever Within 48 Hours Sepsis New/Unexplained Change in Mental Status Sepsis Action Taken by Nursing 07/21/20 01:41 Temperature Temperature Source Pulse Rate Pulse Rate [Bilateral Apical] 57 L Respiratory Rate 20 Respiratory Effort / Characteristics Respiratory Depth Blood Pressure Blood Pressure [Left Arm] 138/71 Blood Pressure Mean Blood Pressure Mean [Left Arm] 93 Pulse Oximetry 96 Oxygen Delivery Method Room Air Sepsis Recent Fever Within 48 Hours Sepsis New/Unexplained Change in Mental Status Sepsis Action Taken by Nursing Laboratory Data Result diagrams: 07/20/20 20:45 Lab Results 07/20/20 07/21/20 07/21/20 Range/Units 20:45 00:45 00:45 WBC 7.53 (4.8-10.8) K/uL RBC 4.29 L (4.7-6.1) M/uL Hgb 13.6 L (14.0-18.0) g/dL Hct 41.0 L (42-52) % MCV 95.6 (80-100) fL MCH 31.7 (25-34) pg MCHC 33.2 (32-36) g/dL RDW Std Deviation 43.4 (36.4-46.3) fL RDW Coeff of Damián 12.5 (11.5-14.5) % Plt Count 212 (130-400) K/uL MPV 10.9 H (7.4-10.4) fL Immature Gran % (Auto) 0.3 % Neut % (Auto) 50.9 % Lymph % (Auto) 35.3 % [place] % (Auto) 10.2 % Eos % (Auto) 2.9 % Baso % (Auto) 0.4 % Neut # (Auto) 3.83 (1.4-6.5) K/uL Lymph # (Auto) 2.66 (1.2-3.4) K/uL [place] # (Auto) 0.77 H (0.11-0.59) K/uL Eos # (Auto) 0.22 (0-0.5) K/uL Baso # (Auto) 0.03 (0-0.2) K/uL Immature Gran # (Auto) 0.02 (0.00-0.02) K/uL COVID-19 Eval Order Covid19 IDNow atMWIC SARS-CoV-2, RNA, NAAT NEGATIVE (NEGATIVE) Administered Medications Discontinued Medications Morphine Sulfate (Morphine Sulfate 4 Mg/Ml 1 Ml Carp\Vial) 4 mg IV NOW STA Stop: 07/20/20 23:11 Last Admin: 07/20/20 23:21 Dose: 4 mg Documented by: [id number] Morphine Sulfate (Morphine Sulfate 4 Mg/Ml 1 Ml Carp\Vial) 4 mg IV NOW STA Stop: 07/21/20 00:00 Last Admin: 07/21/20 00:09 Dose: 4 mg Documented by: [id number] Ondansetron HCl (Ondansetron Inj 2 Mg/Ml 2 Ml Vial) 4 mg IV NOW STA Stop: 07/20/20 23:11 Last Admin: 07/20/20 23:22 Dose: 4 mg Documented by: [id number] Discharge Plan Visit Data Chief Complaint: Abdominal Pain Stated Complaint: ABDOMINAL PAIN ED Provider: Oniel Catherine Discharge Problem: Postoperative hematoma Forms Stand Alone Forms: My [facility] Prescriptions Prescriptions: No Action aspirin [Aspirin Low Dose] 81 mg Tablet,Delayed Release (Dr/Ec) 81 mg PO DAILY RF: 0 amlodipine 5 mg tablet 5 mg PO DAILY RF: 0 rosuvastatin 5 mg tablet 5 mg PO DAILY RF: 0 multivitamin [Multiple Vitamin] Tablet 1 tab PO DAILY RF: 0
[2020-07-21] MEDS ORDERED: oxyCODONE HCL IR 5 MG TAB (IMMEDIATE RELEASE) PO PRN (03:07)
[2020-07-21] MEDS ORDERED: MoRPHine SULFATE 2 MG/ML CARP IV PRN (03:07)
[2020-07-21] MEDS ORDERED: ONDANSETRON INJ 2 MG/ML 2 ML VIAL IV PRN (03:07)
[2020-07-21] MEDS: ACETAMINOPHEN 325 MG TAB PO SCH ×2 (05:25→09:13)
--- NOTE | 2020-07-21 08:03 | CT Scan Report ---
ABDOMEN AND PELVIS CT WITHOUT CONTRAST CT DOSE: 1132.51 mGy.cm HISTORY: Acute epigastric abdominal pain. Recent subcutaneous surgery with lipoma removal. incisiona l swelling and epigastric pain. TECHNIQUE: Multiaxial CT images of the abdomen and pelvis were performed without contrast. A dose lo wering technique was utilized adhering to the principles of ALARA. COMPARISON STUDY: CTA of the chest 10/13/2019, CT abdomen and pelvis 08/14/2017 FINDINGS: Coronary artery calcifications. Imaged inferior cardiac chambers are unremarkable. Clear dwayne ng bases. No pneumatosis or pneumoperitoneum. The unenhanced spleen, mildly atrophic pancreas and lef t adrenal gland are unremarkable. Minimal thickening of the right adrenal gland. Cholecystectomy. The re are at least 5 hypodense lesions noted within the liver, largest of which measures 2.0 cm which ap pears similar to comparison. The largest lesion previously demonstrated imaging characteristics sugge stive of a hemangioma. Mild nonspecific bilateral perinephric stranding. Left-sided renal cysts measure up to 6.3 x 6.7 cm. No urolith or obstructive uropathy. Unremarkable urinary bladder and prostate. Phleboliths of the pel vis. Calcified plaque of the abdominal aorta. No adenopathy. Duodenal diverticulum. No bowel obstruction or bowel wall thickening. Moderate fecal retention. Colon ic diverticulosis. Postoperative changes of the right hemicolon with ileocolic anastomosis. Small fat filled periumbilical hernia. Superficial to the skin marker at the area of patient's reported incisi on there is subcutaneous gas with moderate subcutaneous edema. Additionally, there is a 5.8 x 7.5 x 7 .1 cm subcutaneous hematoma. Subcutaneous emphysema of the right lateral flank is also likely postpro cedural. Degenerative changes of the spine, pelvis and hips. IMPRESSION: 1. Subcutaneous hematoma of the right paracentral upper abdomen at the reported incision site measure s up to 7.5 cm. Adjacent subcutaneous emphysema is likely on a postprocedural basis. Superimposed inf ection should be correlated clinically. 2. No bowel obstruction or bowel wall thickening. 3. Colonic diverticulosis. 4. Additional findings as above. ACT 112: Negative or not required by law. The above report was generated using voice recognition software. It may contain grammatical, syntax o r spelling errors. Electronically signed by: Lucas Farley M.D. 07/21/2020 8:02 AM
[2020-07-21] MEDS ORDERED: ROSUVASTATIN CALCIUM 5 MG TAB PO SCH (09:00)
[2020-07-21] MEDS ORDERED: MULTIVITAMIN TAB PO SCH (09:00)
[2020-07-21] MEDS ORDERED: amLODIPine BESYLATE 5 MG TAB PO SCH (09:00)
--- NOTE | 2020-07-21 09:18 | Surgery Progress Note ---
Date of Service pt had resection large lipoma on epigastric area last Monday, pt was doing fine, no pain, until last night pt went to bathroom for difficulty BM, then pt feels pain on epigastric area with swelling, pt went to ER pt was admitted to hospital for treatment, H/H stable, normal WBC, now pt feels much better, the swelling is smaller, less pain, no fever, pt has resumed 81 mg ASA 2 days ago.I reviewed the CT scan finding with pt, July 21, 2020 Assessment & Plan (1) Postoperative hematoma: pt is a 69 year-old male who was admitted to hospital for post-op pain with hematoma, IMP: post-op hematoma, Plan, pt is doing much better, no significant pain, the swelling area is smaller than yesterday per-pt, pt wants to go home today, hold ASA for 3 days, stool softener F/U me 2 days [phone] the post-op care instruction was given, pt agrees with the plan, I answered all questions, Present on Admission?: Yes Admission and Anticipated Discharge Date Admission Date: July 21, 2020 Physical Exam Constitutional: WD/WN, vitals as above well developed and well nourished Eyes: PERRL, conjunctivae normal, anicteric sclerae ENMT: external ear and nose normal, oropharynx normal Neck: trachea midline, no thyromegaly Respiratory: normal respiratory effort, lungs clear to auscultation normal respiratory effort Cardiovascular: RRR, no murmur, no edema Rate/Rhythm: regular rate and regular rhythm Gastrointestinal (Abdomen): Percussion/Palpation: abdomen soft some swelling on epigastric area, size about 5x7cm, mild tenderness, no redness, incision intact, no drianage Musculoskeletal: no cyanosis or clubbing, extremities motor strength 5/5 Skin: no rashes, warm and dry Neurologic: patellar DTR's 2+ bilat, sensation intact Psychiatric: Orientation: alert and oriented x 3 Results & Data ([facility]) Vital Signs (Past 12 Hours) Vital Signs Temp Pulse Pulse Resp BP BP Pulse Ox 07/21/20 06:56 36.8 C 58 L 14 137/74 96 07/21/20 03:12 36.3 C L 56 L 20 170/80 H 98 07/21/20 02:15 68 20 148/78 H 98 07/21/20 01:41 57 L 20 138/71 96 07/21/20 00:27 64 20 152/77 H 99 07/20/20 23:30 63 20 167/90 H 97 07/20/20 23:03 68 20 157/95 H 99 07/20/20 21:55 66 20 178/82 H 98 07/20/20 21:10 64 20 161/82 H 98 Laboratory Results Abnormal lab results 07/20/20 Range/Units 20:45 RBC 4.29 L (4.7-6.1) M/uL Hgb 13.6 L (14.0-18.0) g/dL Hct 41.0 L (42-52) % MPV 10.9 H (7.4-10.4) fL [place] # (Auto) 0.77 H (0.11-0.59) K/uL Diagnostic Findings ABDOMEN AND PELVIS CT WITHOUT CONTRAST CT DOSE: 1132.51 mGy.cm HISTORY: Acute epigastric abdominal pain. Recent subcutaneous surgery with lipoma removal. incisional swelling and epigastric pain. TECHNIQUE: Multiaxial CT images of the abdomen and pelvis were performed without contrast. A dose lowering technique was utilized adhering to the principles of ALARA. COMPARISON STUDY: CTA of the chest 10/13/2019, CT abdomen and pelvis 08/14/2017 FINDINGS: Coronary artery calcifications. Imaged inferior cardiac chambers are unremarkable. Clear lung bases. No pneumatosis or pneumoperitoneum. The unenhanced spleen, mildly atrophic pancreas and left adrenal gland are unremarkable. Minimal thickening of the right adrenal gland. Cholecystectomy. There are at least 5 hypodense lesions noted within the liver, largest of which measures 2.0 cm which appears similar to comparison. The largest lesion previously demonstrated imaging characteristics suggestive of a hemangioma. Mild nonspecific bilateral perinephric stranding. Left-sided renal cysts measure up to 6.3 x 6.7 cm. No urolith or obstructive uropathy. Unremarkable urinary bladder and prostate. Phleboliths of the pelvis. Calcified plaque of the abdominal aorta. No adenopathy. Duodenal diverticulum. No bowel obstruction or bowel wall thickening. Moderate fecal retention. Colonic diverticulosis. Postoperative changes of the right hemicolon with ileocolic anastomosis. Small fat filled periumbilical hernia. Superficial to the skin marker at the area of patient's reported incision there is subcutaneous gas with moderate subcutaneous edema. Additionally, there is a 5.8 x 7.5 x 7.1 cm subcutaneous hematoma. Subcutaneous emphysema of the right lateral flank is also likely postprocedural. Degenerative changes of the spine, pelvis and hips. IMPRESSION: 1. Subcutaneous hematoma of the right paracentral upper abdomen at the reported incision site measures up to 7.5 cm. Adjacent subcutaneous emphysema is likely on a postprocedural basis. Superimposed infection should be correlated clinically. 2. No bowel obstruction or bowel wall thickening. 3. Colonic diverticulosis. 4. Additional findings as above.
[2020-07-21] MEDS ORDERED: POLYETHYLENE (MIRALAX) 17 GM PACK PO SCH (09:30)
--- NOTE | 2020-07-22 09:57 | Discharge Summary (DS) ---
ADMITTING DIAGNOSIS: Postoperative incision pain. DISCHARGE DIAGNOSIS: Postoperative hematoma. DETAILS OF DISCHARGE SUMMARY: This is a 69-year-old gentleman who had a resection of large lipoma on the epigastric area on 07/17/2020 and the patient was doing fine and after the procedure on 07/20 evening, the patient went to bathroom, because the patient had difficult to pass a bowel movement at that time, the patient felt some incision pain and patient went to the hospital ER. The patient had a CT scan that diagnosed a hematoma on the incision site epigastric area. The patient was admitted to hospital overnight and this morning, I saw the patient and the patient is doing much better, he said less pain and the hematoma is getting smaller. Also, patient's hemoglobin is stable, normal white count. PHYSICAL EXAMINATION: VITAL SIGNS: Temperature is 36.4, respiratory rate is 16, heart rate is 61, blood pressure 142/71, O2 saturation 99% on room air. GENERAL: The patient is alert, awake, oriented x3. HEENT: Within normal limitation. NEUROLOGIC: Intact. NECK: No JVD. CHEST: Bilateral lung sounds clear. HEART: Normal S1, S2. No murmur. ABDOMEN: Soft. There is a little bit of swelling on the epigastric area at the incision site and little bit of tenderness, no rebound pain, no redness, no drainage. The swelling size about 5 x 6 cm, otherwise abdomen is not distended, bowel sounds positive. EXTREMITIES: No edema. The patient's blood work shows white count is 7.5, hemoglobin is 13.6. I reviewed the CT scan with the patient, confirmed the diagnosis of postoperative hematoma. Right now, it looks like the hematoma is already stopped and also the patient started baby aspirin about a couple of days ago. So I informed the patient to stop baby aspirin for 3 days and also I gave the patient stool softener and patient will use Tylenol for pain control. The patient wanted to go home, I gave the patient postop care instruction. The patient understands. I will follow up the patient in 2 days.
== END 2020-07-21 12:22 | disposition home or self-care (01) ==
LOC: 3N 20:34 → ED 20:34 → 3N 07-21 02:17